=== PATIENT | male | born 1965 | race Caucasian/White ===

== ENCOUNTER → 2020-07-06 15:26 | Outpatient (CLI) | payer OTHER, SELFPAY ==
[2020-07-06 18:23] LABS: Absolute Lymphocyte Count 1.17 X10^3/uL (0.83-4.51); Absolute Neutrophil Count 5.4 X10^3/uL (2.0-7.7); Basophil# 0.06 X10^3/uL; Basophil% 0.8 % (0-1); Eosinophil# 0.34 X10^3/uL; Eosinophils% 4.6 % (0-5); Hematocrit 33.8 % (40-54); Hemoglobin 11.2 g/dL (13.0-16.5); Lymphocyte # 1.17 X10^3/ul (4.0); Lymphocyte % 15.7 % (19-41); Mean Corp Hgb Conc 33.1 g/dL (32-36); Mean Corpuscular Hgb 30.9 pg (27.0-32.0); Mean Corpuscular Volume 93.4 fL (80-94); Mean Platelet Vol. 11.2 fl (6.2-12.0); Monocyte# 0.47 X10^3/uL; Monocyte% 6.3 % (0-10); NRBC Flagged by Analyzer 0 % (0-5); Neutrophil # 5.39 X10^3/uL (2.7-7.7); Neutrophil % 72.3 % (47-70); Platelet Count 341 K/mm3 (150-450); RBC Distribution Width CV 12.4 % (11.6-14.6); RBC Distribution Width SD 42.3 fl (35.1-43.9); Red Blood Count 3.62 M/mm3 (4.6-6.2); White Blood Count 7.5 K/mm3 (4.4-11.0)
[2020-07-06 19:13] LABS: Anion Gap 6 (5-15); BUN 43 mg/dL (7-18); BUN/Creat Ratio 13.5 RATIO (10-20); Calcium,Total 14.4 mg/dL (8.5-10.1); Chloride 108 mmol/L (98-107); Cholesterol 152 mg/dL (200); Creatinine, Serum 3.19 mg/dL (0.70-1.30); EST Glomerular Filtration Rate 22 mL/min (>60); Est Glom Filt Rate - Afr Amer 26 mL/min (>60); Glucose 100 mg/dL (74-106); High Density Lipoprotein 42 mg/dL; PSA,Total - Annual Screen 0.83 ng/mL (0.00-4.00); Potassium 3.9 mmol/L (3.5-5.1); Sodium Level 142 mmol/L (136-145); Thyroid Stim Hormone (TSH) 0.58 uIU/mL (0.358-3.74); Triglycerides 183 mg/dL; Very Low Density Lipoprotein 37 mg/dL (5-40)
== END ==
PROVIDERS: PCP Family Medicine; Referring Provider Family Medicine; Visit Provider Family Medicine
DX: Z00.00 Encounter for general adult medical examination without abnormal findings (principal); R53.83 Other fatigue
CPT/HCPCS: 36415; 80048; 80061; 84153; 84403; 84443; 85025; G0103

== ENCOUNTER 2020-07-07 17:26 | Inpatient (IN) | payer OTHER, SELFPAY ==
[2020-07-07 17:27] VITALS: BP 143/92; PULSE 96; PULSE 98; RESP 18; TEMP 36.7; O2SAT 99; BMI 21.9
--- NOTE | 2020-07-07 17:57 | EKG12_ITS ---
Test Reason : ABN LABS Blood Pressure : / mmHG Vent. Rate : 079 BPM Atrial Rate : 079 BPM P-R Int : 134 ms QRS Dur : 088 ms QT Int : 366 ms P-R-T Axes : 061 039 045 degrees QTc Int : 419 ms Normal sinus rhythm Normal ECG Confirmed by TANIA ENNIS, JOSETTE ([id number]), clinical editor GUILHERME HICKS ([id number]) on 07/09/2020 10:57:06 AM Referred By: TANA Confirmed By:JOSETTE MARIN MD
--- NOTE | 2020-07-07 17:59 | ED.DCSUM_ITS ---
History of Present Illness Chief Complaint: Abn Labs Narrative: Patient is a 54-year-old male who was sent in due to a high calcium. Over the last 6 weeks he complains of fatigue and vague abdominal discomfort increased heartburn and occasional vomiting. His last episode of emesis was a week ago. He had an appointment with a new physician and had outpatient blood work. He was called today and told that his calcium was very high and to go to the emergency department. No fevers. No cough. Patient denies myalgias or arthralgias. No history of cancer. Past Medical History - Allergies and Home Meds Allergies/Adverse Reactions: Allergies No Known Allergies Allergy (Verified 07/07/20 17:30) Primary Care Physician: Jonny Matthews MD [Primary Care Provider] - Past Medical History: - - Schizophrenia Smoking Status: Current every day smoker Review of Systems All systems negative except as indicated General: Reports: - - Fatigue. Denies: Fever Eyes: Denies: Visual changes - bilaterally Cardiovascular: Denies: Chest pain Respiratory: Denies: Dyspnea Gastrointestinal: Reports: Abdominal pain, Nausea, Vomiting, Constipation. Denies: Diarrhea Musculoskeletal: Denies: Myalgias, Arthralgias Skin: Denies: Rash Neurological: Denies: Headache Endocrine: Denies: Polyuria Hematologic: Denies: Easy bruising Allergy: Denies: Uticaria Physical Exam Vital Signs/Narrative: Vital Signs Temp Pulse Resp BP Pulse Ox 07/07/20 17:27 98.1 F 96 18 143/92 H 99 Inital Vital Signs reviewed: Yes General: Well nourished Head: Normocephalic Eyes: EOMI ENT: Moist mucous membranes Neck: Supple Cardiovascular: Regular rate, Regular rhythm Respiratory: No distress, CTA bilaterally Abdomen: Soft, Nontender Skin: Normal color Neurological: Alert Psychological: Normal affect Diagnostic/Tx/Re-eval Laboratory Results 07/07/20 07/07/20 17:40 17:40 WBC 7.3 RBC 3.38 L Hgb 10.4 L Hct 30.9 L MCV 91.4 MCH 30.8 MCHC 33.7 RDW Std Deviation 41.1 RDW Coeff of Madie 12.5 Plt Count 313 MPV 10.4 Immature Gran % (Auto) 0.100 Neut % (Auto) 60.5 Lymph % (Auto) 23.4 [place] % (Auto) 9.3 Eos % (Auto) 5.9 H Baso % (Auto) 0.8 Absolute Neuts (auto) 4.4 Absolute Lymphs (auto) 1.71 Nucleated RBC % 0 Sodium 139 Potassium 3.6 Chloride 106 Carbon Dioxide 29.0 Anion Gap 4 L BUN 36 H Creatinine 3.19 H Estim Creat Clear Calc 26.39 Est GFR (MDRD) Af Amer 26 L Est GFR (MDRD) Non-Af 22 L BUN/Creatinine Ratio 11.3 Glucose 97 Calcium 13.4 H* Total Bilirubin 0.30 AST 13 L ALT 19 Alkaline Phosphatase 98 Total Protein 7.6 Albumin 3.7 Globulin 3.9 Albumin/Globulin Ratio 0.9 - Medical Decision Making EKG shows sinus rhythm at a rate of 79 with a short QT interval. Calcium is 13.4. Labs otherwise notable for creatinine of 3.19. Patient has no known history of renal disease. Yesterday's appointment was his intake appointment with a primary care physician. Given the severity of hypercalcemia I do believe hospitalization for further evaluation and management appropriate. Patient will be discussed with hospitalist. ED Disposition - Plan for ED Patient: Disposition: Acute Care Hospital [facility] Diagnosis: Hypercalcemia Referrals: Jonny Matthews MD [Primary Care Provider] -
[2020-07-07] MEDS: 0.9% Normal Saline 1,000 ML 999 ML IV (18:08)
[2020-07-07 18:28] LABS: Absolute Lymphocyte Count 1.71 X10^3/uL (0.83-4.51); Absolute Neutrophil Count 4.4 X10^3/uL (2.0-7.7); Basophil# 0.06 X10^3/uL; Basophil% 0.8 % (0-1); Eosinophil# 0.43 X10^3/uL; Eosinophils% 5.9 % (0-5); Hematocrit 30.9 % (40-54); Hemoglobin 10.4 g/dL (13.0-16.5); Lymphocyte # 1.71 X10^3/ul (4.0); Lymphocyte % 23.4 % (19-41); Mean Corp Hgb Conc 33.7 g/dL (32-36); Mean Corpuscular Hgb 30.8 pg (27.0-32.0); Mean Corpuscular Volume 91.4 fL (80-94); Mean Platelet Vol. 10.4 fl (6.2-12.0); Monocyte# 0.68 X10^3/uL; Monocyte% 9.3 % (0-10); NRBC Flagged by Analyzer 0 % (0-5); Neutrophil # 4.41 X10^3/uL (2.7-7.7); Neutrophil % 60.5 % (47-70); Platelet Count 313 K/mm3 (150-450); RBC Distribution Width CV 12.5 % (11.6-14.6); RBC Distribution Width SD 41.1 fl (35.1-43.9); Red Blood Count 3.38 M/mm3 (4.6-6.2); White Blood Count 7.3 K/mm3 (4.4-11.0)
--- NOTE | 2020-07-07 18:42 | ED.RN ---
calcium 13.4. aware
[2020-07-07 18:43] LABS: ALB/GLOB Ratio 0.9 RATIO (0.9-2.4); AST(SGOT) 13 U/L (15-37); Alanine Aminotransfer ALT/SGPT 19 U/L (16-61); Albumin, Serum 3.7 g/dL (3.2-5.0); Alkaline Phosphatase 98 U/L (45-117); Anion Gap 4 (5-15); BUN 36 mg/dL (7-18); BUN/Creat Ratio 11.3 RATIO (10-20); Calcium,Total 13.4 mg/dL (8.5-10.1); Chloride 106 mmol/L (98-107); Creatinine, Serum 3.19 mg/dL (0.70-1.30); EST Glomerular Filtration Rate 22 mL/min (>60); Est Glom Filt Rate - Afr Amer 26 mL/min (>60); Estimated Creatinine Clearance 26.39 ml/min; Globulin 3.9 g/dL (2.2-4.2); Glucose 97 mg/dL (74-106); Potassium 3.6 mmol/L (3.5-5.1); Protein, Total 7.6 g/dL (6.4-8.2); Sodium Level 139 mmol/L (136-145)
--- NOTE | 2020-07-07 20:00 | HP.PCM_ITS ---
Problem List (1) Hypercalcemia Status: Acute History of Present Illness Date of Admission: 07/07/20 Chief Complaint: hypercalcemia The patient is a 54 year old M with a significant history of tobacco abuse; and schizophrenia who presented because of outpatient lab of hypercalcemia. Reportedly patient went to see a new PCP to establish care. This new PCPs visit was a day before presentation. Lab work was done. The lab work showed a calcium of 14.4 so patient was sent to emergency department for further evaluation. Patient reports a 6-week history of fatigue; weakness; and anorexia. 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 Because of his symptoms he has not been able to go to work. Further he has lost about 10 pounds of weight in the last one month. At emergency department his calcium level was found to be 13.4. His creatinine was 3.19. His BUN was 36. Past Medical History Medical History: Medical History (Last Reviewed 07/07/20 @ 20:[address] Hansel Coto MD) GERD (gastroesophageal reflux disease) K21.9 Hypercalcemia E83.52 Light tobacco smoker F17.200 Paranoid schizophrenia F20.0 Restless leg G25.81 Allergies No Known Allergies Allergy (Verified 07/07/20 17:30) Home Medications: Ambulatory Orders Medication Instructions Recorded Benztropine [Cogentin] 4 mg PO BID 07/07/20 Haloperidol [Haldol] 5 mg PO BID 07/07/20 l-Mefol/A-Cyst/Meb12/Algal Oil 1 ea PO DAILY 07/07/20 [Cerefolin Nac Caplet] Surgical History: Surgical History (Last Updated 07/07/20 @ 13:55 by Maria M Solano) History of appendectomy Z90.49 Smoking Status: Current every day smoker Tobacco Use: Cigarettes - *Family History Maternal Family History: Family History (Last Reviewed 07/07/20 @ 20:[address] Hansel Coto MD) Aunt Cancer Uncle Cancer Mother Pacemaker Review of Systems Constitutional: Reports: Anorexia, Weight Change. Denies: Chills, Fever HEENT: Denies: Head Aches, Sinus Congestion, Sinus Drainage Cardiovascular: Denies: Chest Pain, Palpitations Respiratory: Denies: Cough, Shortness of breath at rest, Sputum production Gastrointestinal: Reports: Abdominal Pain, Dyspepsia. Denies: Nausea, Vomiting Genitourinary: Denies: Dysuria Musculoskeletal: Denies: Joint Pain, Joint Tenderness Skin: Denies: Rash, Wounds Neurological: Denies: Numbness, Tingling, Focal weakness Psychiatric: Denies: Anxiety, Depression, Homicidal Ideations, Suicidal Ideations Hematologic/ Lymphatic: Denies: Easy Bruising, Easy Bleeding VTE Information - Inpt Only VTE Present on Admission: No VTE Mechan Device Prophylaxis: None VTE Pharm Prophylaxis ordered?: Yes Patient Problems: Active and Suspected Problems (Last Reviewed 07/07/20 @ 20:[address] Hansel Coto MD) Hypercalcemia (Acute) - Physical Exam Vitals/I&O's: Vital Signs Temp Pulse Resp BP Pulse Ox 98.1 F 96 18 143/92 H 99 07/07/20 17:27 07/07/20 17:27 07/07/20 17:27 07/07/20 17:27 07/07/20 17:27 Oxygen Delivery Method Room Air Weight: 71.3 kg Body Mass Index (BMI) 21.9 General: Alert, Oriented x3, Cooperative HEENT: Atraumatic, PERRLA, EOMI, Normocephalic Neck: Supple, No JVD, Negative Carotid Bruits Lungs: Clear to auscultation, Normal air movement Cardiovascular: Regular rate, No murmurs Abdomen: Bowel Sounds Present, Soft, Non Tender Extremities: No edema, Capillary Refill Less than 3 Seconds Skin: No rashes, No breakdown Musculoskeletal: No Tenderness to Palpation of Joints or Extremities Neurological: Cranial nerves II-XII grossly intact Psych/Mental Status: Normal Affect, Appropriate Laboratory Results 07/07/20 17:40: WBC 7.3, RBC 3.38 L, Hgb 10.4 L, Hct 30.9 L, MCV 91.4, MCH 30.8, MCHC 33.7, RDW Std Deviation 41.1, RDW Coeff of Madie 12.5, Plt Count 313, MPV 1 0.4, Immature Gran % (Auto) 0.100, Neut % (Auto) 60.5, Lymph % (Auto) 23.4, [place] % (Auto) 9.3, Eos % (Auto) 5.9 H, Baso % (Auto) 0.8, Absolute Neuts (auto) 4.4, Absolute Lymphs (auto) 1.71, Nucleated RBC % 0 07/07/20 17:40: Sodium 139, Potassium 3.6, Chloride 106, Carbon Dioxide 29.0, Anion Gap 4 L, BUN 36 H, Creatinine 3.19 H, Estim Creat Clear Calc 26.39, Est GFR (MDRD) Af Amer 26 L, Est GFR (MDRD) Non-Af 22 L, BUN/Creatinine Ratio 11.3, Glucose 97, Calcium 13.4 H*, Total Bilirubin 0.30, AST 13 L, ALT 19, Alkaline Phosphatase 98, Total Protein 7.6, Albumin 3.7, Globulin 3.9, Albumin/Globulin Ratio 0.9 07/07/20 18:10: Ionized Calcium Pending Assessment/Plan All Active Problems (Last Reviewed 07/07/20 @ 20:[address] Hansel Coto MD) Hypercalcemia (Acute) The patient is a 54 year old M with a significant history of tobacco abuse; and schizophrenia who presented because of outpatient lab of hypercalcemia and acute renal failure. Hypercalcemia Patient showed a QT interval. Will admit to progressive care unit on telemetry. With anemia, acute renal failure and hypercalcemia multiple myeloma is high on the differential. We will get SPEP and UPEP. Received normal saline bolus at emergency department. Will start patient on normal saline 100 mL's per hour. Will check complete urinalysis. If hypercalcemia does not improve consider nephrology consult Trend BMP YADI Creatinine presentation was 3.19. With his age this likely YADI. BUN is 36. BUN over creatinine is 11.3. Received normal saline bolus as above. Started on maintenance infusion normal saline. Trend BMP. Get ultrasound of kidney and bladder. Schizophrenia Haldol and Cogentin continued DVT prophylaxis Subcutaneous Heparin ordered. Inpatient E&M: 27019 Init Hosp L3
[2020-07-07 20:06] VITALS: BP 151/97; PULSE 82; RESP 17; TEMP 37.1
[2020-07-07 20:08] VITALS: BP 151/97; PULSE 83; RESP 17; TEMP 37.1
[2020-07-07 20:17] VITALS: BMI 21.7; BMI 21.8
--- NOTE | 2020-07-07 20:47 | US_ITS ---
STUDY: RENAL ULTRASOUND - COMPLETE REASON FOR EXAM: Male, 54 years old. Acute kidney injury. TECHNIQUE: Ultrasound evaluation of the kidneys was performed with real-time and static russell-scale imaging. COMPARISON: None. FINDINGS: RIGHT KIDNEY: Normal location of the right kidney, which is normal in size. The right kidney measures 9.9 cm. Is increased renal cortical echogenicity. The renal cortex measures 1.6 cm. There is no right renal mass or cyst. There are no right renal calculi. There is no right hydronephrosis. DISTAL RIGHT URETER: There is non-visualization of the distal right ureter. There is no demonstrated right ureterovesical junction calculus. There is no demonstrated right ureteral jet. LEFT KIDNEY: Normal location of the left kidney, which is normal in size. The left kidney measures 10.9 cm. There is increased renal cortical echogenicity. The renal cortex measures 2.0 cm. There is no left renal mass or cyst. There are no left renal calculi. There is no left hydronephrosis. DISTAL LEFT URETER: There is non-visualization of the distal left ureter. There is no demonstrated left ureterovesical junction calculus. There is no demonstrated left ureteral jet. BLADDER: The distended urinary bladder has a volume of 583 ml. There is a normal wall thickness of the distended urinary bladder. There is no demonstrated mass within the urinary bladder. There is debris in the dependent urinary bladder without obvious calculi. US/Kidney and Bladder IMPRESSION: 1. Increased bilateral renal cortical echogenicity consistent with medical renal disease. 2. Minimal debris within the urinary bladder without distinct stone or mass. Electronically Signed: Bereket Berry DO at 21:42 EDT Tel [phone], Service support ,
[2020-07-07 20:58] VITALS: PULSE 97
[2020-07-07 21:00] VITALS: BP 157/100; PULSE 85; RESP 16; TEMP 37.6; O2SAT 100
[2020-07-07 22:35] VITALS: BP 146/92; PULSE 77; RESP 16; TEMP 37.1; O2SAT 97
[2020-07-07] MEDS: 0.9% Normal Saline 1,000 ML 100 ML IV (22:37)
[2020-07-07] MEDS: Heparin Injection (Vial) 5,000 UNIT/ML VIAL 5000 UNIT SC (22:37)
[2020-07-07] MEDS: 0.9% Saline Lock 10 ML Syringe IV (22:37)
[2020-07-08] VITALS (10 sets, daily range): BP systolic 142–158; BP diastolic 85–92; PULSE 77–90; RESP 16–18; TEMP 36.7–37.1; O2SAT 96–100
[2020-07-08 00:25] LABS: Mucous, Urine 0 SEEN /hpf (<or=2+); Red Blood Cells-Urine 0 SEEN /hpf (0-5); Squamous Epithelial Cells - UA 0 SEEN /hpf (0-5); White Blood Cells 0 SEEN /hpf (0-5)
[2020-07-08 00:27] LABS: Color, Urine Yellow (Yellow); Glucose, Dipstick Normal (Normal); Ketone-Dipstick Negative (Negative); Leukocyte Esterase-Dipstick Negative /ul (Negative); Nitrite-Dipstick Negative (Negative); Occult Blood-Urine Negative /ul (Negative); Protein-Dipstick 15 mg/dl (Negative); Urine Bilirubin Dipstick Negative (Negative); Urine Clarity Clear (Clear); Urine Urobilinogen Normal (Normal)
[2020-07-08 00:44] LABS: Bacteria RARE /hpf (None Seen)
[2020-07-08] MEDS: Heparin Injection (Vial) 5,000 UNIT/ML VIAL 5000 UNIT SC ×3 (05:16→21:14)
[2020-07-08 06:51] LABS: Absolute Lymphocyte Count 1.38 X10^3/uL (0.83-4.51); Absolute Neutrophil Count 4.2 X10^3/uL (2.0-7.7); Basophil# 0.05 X10^3/uL; Basophil% 0.8 % (0-1); Eosinophil# 0.38 X10^3/uL; Eosinophils% 5.8 % (0-5); Hematocrit 28.2 % (40-54); Hemoglobin 9.3 g/dL (13.0-16.5); Lymphocyte # 1.38 X10^3/ul (4.0); Lymphocyte % 21.1 % (19-41); Mean Corpuscular Hgb 30.4 pg (27.0-32.0); Mean Corpuscular Volume 92.2 fL (80-94); Mean Platelet Vol. 10.4 fl (6.2-12.0); Monocyte# 0.53 X10^3/uL; Monocyte% 8.1 % (0-10); NRBC Flagged by Analyzer 0 % (0-5); Neutrophil # 4.17 X10^3/uL (2.7-7.7); Neutrophil % 63.9 % (47-70); Platelet Count 305 K/mm3 (150-450); RBC Distribution Width CV 12.7 % (11.6-14.6); RBC Distribution Width SD 42.5 fl (35.1-43.9); Red Blood Count 3.06 M/mm3 (4.6-6.2); White Blood Count 6.5 K/mm3 (4.4-11.0)
[2020-07-08 07:26] LABS: Anion Gap 3 (5-15); BUN 31 mg/dL (7-18); BUN/Creat Ratio 10.4 RATIO (10-20); Calcium,Total 11.6 mg/dL (8.5-10.1); Chloride 112 mmol/L (98-107); Creatinine, Serum 2.98 mg/dL (0.70-1.30); EST Glomerular Filtration Rate 23 mL/min (>60); Est Glom Filt Rate - Afr Amer 28 mL/min (>60); Estimated Creatinine Clearance 28.03 ml/min; Glucose 85 mg/dL (74-106); Potassium 3.8 mmol/L (3.5-5.1); Sodium Level 142 mmol/L (136-145)
[2020-07-08 07:56] LABS: LDH 133 U/L (87-241)
--- NOTE | 2020-07-08 08:28 | CT_ITS ---
STUDY: CT ABDOMEN AND PELVIS WITHOUT CONTRAST REASON FOR EXAM: Male, 54 years old. HYPERCALCEMIA, FATIGUE, WEAKNESS, ANOREXIA RADIATION DOSAGE (If Supplied By Facility): CTDIvol = ( 9.06 ) mGy, DLP = ( 287.93 ) mGycm TECHNIQUE: Transaxial images were obtained from the dome of the diaphragm to the symphysis pubis without oral contrast, and without intravenous contrast. Sagittal and coronal images were reconstructed. Individualized dose optimization techniques were used for this CT. COMPARISON: None. FINDINGS: Minimal increased markings at the lung bases slightly more prominent on the right side. The visualized portions of the heart are within normal limits. Normal liver. Normal gallbladder and extrahepatic biliary system. Normal spleen. Normal pancreas. There is a small, circumscribed, smooth, low attenuation right adrenal mass, consistent with an adrenal adenoma. It measures 9.8 mm. Normal left adrenal gland. Normal right kidney. Normal left kidney. Incidental finding of a left retroaortic renal vein. There is a small hiatal hernia. Normal small intestine. Normal colon. The appendix is visualized and appears normal. Normal abdominal aorta. Normal inferior vena cava. Normal retroperitoneum. Markedly distended urinary bladder. There is a small umbilical hernia containing fat. There are mild degenerative changes of the visualized lumbar spine. CT/Abdomen/Pelvis without Cont IMPRESSION: Markedly distended urinary bladder. Electronically Signed: Kris Scott, at 10:22 EDT , Service support ,
--- NOTE | 2020-07-08 08:28 | CT_ITS ---
STUDY: CT CHEST WITHOUT CONTRAST REASON FOR EXAM: Male, 54 years old. HYPERCALCEMIA, FATIGUE, WEAKNESS, ANOREXIA RADIATION DOSAGE (If Supplied By Facility): CTDIvol = ( 9.08 ) mGy, DLP = ( 441.62 ) mGycm TECHNIQUE: Transaxial imaging was performed without the administration of intravenous contrast material. Individualized dose optimization techniques were used for this CT. COMPARISON: None. FINDINGS: The lungs are normal. There is no demonstrated pleural abnormality. Normal heart and pericardium. Multiple enlarged mediastinal and bilateral hilar lymphadenopathy more prominent on the right side. Normal hilar regions. Normal unenhanced pulmonary arteries. Normal aorta arch and descending thoracic aorta. There are mild degenerative changes of the thoracic spine. Small hiatal hernia. CT/Chest without Contrast IMPRESSION: Enlargement of the mediastinal and bilateral hilar lymphadenopathy. Sarcoidosis should be ruled out. Electronically Signed: Kris Scott, at 10:24 EDT , Service support ,
--- NOTE | 2020-07-08 08:29 | PN_ITS ---
Patient Problems: Active and Suspected Problems (Last Reviewed 07/07/20 @ 20:[address] Hansel Coto MD) Hypercalcemia (Acute) Subjective: Feeling much better today after the IV fluids. Denies any bone pain. Vitals/I&O's: Vital Signs Temp Pulse Resp BP Pulse Ox 98.4 F 87 16 142/85 H 99 07/08/20 04:35 07/08/20 07:37 07/08/20 04:35 07/08/20 04:35 07/08/20 04:35 Oxygen Delivery Method Room Air Weight: 156 lb Body Mass Index (BMI) 21.7 Intake and Output for Last 24 Hours 07/06/20 07/07/20 07/08/20 23:59 23:59 23:59 Intake Total 1240 / 1240 120 / 120 Balance 1240 / 1240 120 / 120 General: Alert, Oriented x3, Cooperative, No apparent distress HEENT: Atraumatic, PERRLA, EOMI, Normocephalic Oral: Moist Mucosa Neck: Supple, No JVD Lungs: Clear to auscultation, Normal air movement, No rhonchi, No wheeze, No rales Cardiovascular: Regular rate, Regular Rhythm, Normal S1, Normal S2, No murmurs Abdomen: Soft, Non Tender, Non-Distended, No Hepato-splenomegaly Extremities: No edema, Capillary Refill Less than 3 Seconds Skin: No rashes, No breakdown Neurological: Neuro grossly intact, Sensory exam intact to light touch and pain Psych/Mental Status: Normal Affect, Appropriate Laboratory Results 07/07/20 17:40: WBC 7.3, RBC 3.38 L, Hgb 10.4 L, Hct 30.9 L, MCV 91.4, MCH 30.8, MCHC 33.7, RDW Std Deviation 41.1, RDW Coeff of Madie 12.5, Plt Count 313, MPV 10.4, Immature Gran % (Auto) 0.100, Neut % (Auto) 60.5, Lymph % (Auto) 23.4, [place] % (Auto) 9.3, Eos % (Auto) 5.9 H, Baso % (Auto) 0.8, Absolute Neuts (auto) 4.4, Absolute Lymphs (auto) 1.71, Nucleated RBC % 0 07/07/20 17:40: Sodium 139, Potassium 3.6, Chloride 106, Carbon Dioxide 29.0, A nion Gap 4 L, BUN 36 H, Creatinine 3.19 H, Estim Creat Clear Calc 26.39, Est GFR (MDRD) Af Amer 26 L, Est GFR (MDRD) Non-Af 22 L, BUN/Creatinine Ratio 11.3, Glucose 97, Calcium 13.4 H*, Total Bilirubin 0.30, AST 13 L, ALT 19, Alkaline Phosphatase 98, Total Protein 7.6, Albumin 3.7, Globulin 3.9, Albumin/Globulin Ratio 0.9 07/07/20 18:10: Ionized Calcium Pending 07/07/20 21:15: Urine Color Yellow, Urine Clarity Clear, Urine pH 7.0, Ur Specific [place] 1.010, Urine Protein 15 H, Urine Glucose (UA) Normal, Urine Ketones Negative, Urine Occult Blood Negative, Urine Nitrite Negative, Urine Bilirubin Negative, Urine Urobilinogen Normal, Ur Leukocyte Esterase Negative, Urine RBC 0 SEEN, Urine WBC 0 SEEN, Ur Squamous Epith Cells 0 SEEN, Urine Bacteria RARE, Urine Mucus 0 SEEN 07/08/20 05:55: Total Protein (PEP) Pending, Urine Total Protein Pending, Urine Albumin Pending, U Rppqb-7-Ollyioay Pending, U Gklqa-9-Fwfyiran Pending, U Beta Globulin Pending, U Gamma Globulin Pending, U PEP M-Vic Pending, IgG Pending, IgA Pending, IgM Pending, Albumin (FOUZIA) Pending, Albumin/Globulin (FOUZIA) Pending, Amljn-0-Ywjtvwkeb FOUZIA Pending, Xtius-7-Rhzzjarsb FOUZIA Pending, Beta-Globulins (FOUZIA) Pending, Gamma Globulins (FOUZIA) Pending, FOUZIA M-Vic Pending 07/08/20 05:55: WBC 6.5, RBC 3.06 L, Hgb 9.3 L, Hct 28.2 L, MCV 92.2, MCH 30.4, MCHC 33.0, RDW Std Deviation 42.5, RDW Coeff of Madie 12.7, Plt Count 305, MPV 10.4, Immature Gran % (Auto) 0.300, Neut % (Auto) 63.9, Lymph % (Auto) 21.1, [place] % (Auto) 8.1, Eos % (Auto) 5.8 H, Baso % (Auto) 0.8, Absolute Neuts (auto) 4.2, Absolute Lymphs (auto) 1.38, Nucleated RBC % 0 07/08/20 05:55: Sodium 142, Potassium 3.8, Chloride 112 H, Carbon Dioxide 27.0, Anion Gap 3 L, BUN 31 H, Creatinine 2.98 H, Estim Creat Clear Calc 28.03, Est GFR (MDRD) Af Amer 28 L, Est GFR (MDRD) Non-Af 23 L, BUN/Creatinine Ratio 10.4, Glucose 85, Calcium 11.6 H 07/08/20 05:55: Lactate Dehydrogenase 133 07/08/20 05:55: PTH Intact Pending 07/08/20 05:55: Vit D 1,25-Dihydroxy Pending Current Medications Acetaminophen (Tylenol) 650 mg PO Q6H PRN PRN PRN Reason: Pain Score 1-10/Temp > 100.7 F Benztropine Mesylate (Cogentin) 4 mg PO BID [facility] Last Admin: 07/07/20 22:30 Dose: Not Given Documented by: Haloperidol (Haldol) 5 mg PO BID [facility] Last Admin: 07/07/20 22:30 Dose: Not Given Documented by: Heparin Sodium (Porcine) (Heparin Na) 5,000 unit SC Q8 [facility] Last Admin: 07/08/20 05:16 Dose: 5,000 unit Documented by: Sodium Chloride () 1,000 mls @ 150 mls/hr IV .[id number] [facility] Last Admin: 07/07/20 22:37 Dose: 100 mls/hr Documented by: Sodium Chloride () 250 mls @ 15 mls/hr IV .[id number] PRN PRN Reason: Saline Flush Sodium Chloride () 250 mls @ 15 mls/hr IV .[id number] PRN PRN Reason: Additional IVPB Infusion Nutritional Formula (Lactose Free) (Ensure Enlive) 120 ml PO 4X/DAY [facility] Last Admin: 07/07/20 22:31 Dose: Not Given Documented by: Sodium Chloride () 10 - 40 ml IV UD PRN PRN Reason: SALINE FLUSH Last Admin: 07/07/20 22:37 Dose: 10 ml Documented by: STROKE Vital Signs/Narrative: Vital Signs Temp Pulse Resp BP Pulse Ox 07/08/20 07:37 87 07/08/20 04:35 98.4 F 83 16 142/85 H 99 Medical Necessity - Tobacco Use Smoking Status: Current every day smoker Tobacco Use: Cigarettes Assessment/Plan All Active Problems (Last Reviewed 07/07/20 @ 20:[address] Hansel Coto MD) Hypercalcemia (Acute) 1. Hypercalcemia/YADI -Significant concern for multiple myeloma, that testing is pending -Increased IV fluids from 100 to 150. Calcium decreased from 13.4 to 11.6 -We will obtain a CT scan of his chest abdomen and pelvis without contrast given his creatinine, which is 2.98 down from 3.19 on admission -We will add parathyroid hormone as well as vitamin D and a PSA screen -Since he has had such good response with IV fluids, will monitor his calcium and will hold off on any zoledronic acid 2. Paranoid schizophrenia -Stable -Continue with his home medications DVT: Heparin Inpatient E&M: 23795 Subs Hosp L2
[2020-07-08 08:34] LABS: PTHIN 14.9 pg/mL (18.4-80.1)
[2020-07-08] MEDS: 0.9% Normal Saline 1,000 ML 100 ML IV (09:10)
[2020-07-08] MEDS: 0.9% Saline Lock 10 ML Syringe IV (09:14)
[2020-07-08 09:16] LABS: PSA,Total- Diagnostic 0.68 ng/mL (0.0-4.0)
[2020-07-08] MEDS: Haloperidol 5 MG Tablet PO ×2 (09:18→21:14)
[2020-07-08] MEDS: Benztropine 2 MG Tablet 4 MG PO ×2 (09:22→21:14)
--- NOTE | 2020-07-08 13:46 | CASEMGMT ---
GABINO STAPLETON assessment: Face to Face with patient for initial transition planning/care coordination assessment. GABINO STAPLETON introduced self and role at [facility], pt voices understanding and consents to assessment at this time. Pt is lying in bed in no distress at this time. Pt is A/Ox4 at this time and answers all questions appropriately at this time. Care providers, pharmacy, and demographics verified at this time. Presentation: Pt c/o dizziness, fatigue, PCP called with elev calcium Admitting dx: Hypercalcemia PCP: Cassie Specialists: Pt states no current specialists. Preferred Pharmacy: [facility] Insurance: [employer] aid Prescription Benefit: Pt states pays for own scripts and states no concerns at this time. Living Will/HPOA: Pt states does not have LW/HPOA and declines AD info at this time. LNOK: Scott Thomas, brother; Stephen Fritz, family other Living Arrangements: Pt states lives with his brother in 1 story apartment and states no concerns at home at this time. Pt states is independent with ADL's. Transportation: Pt states no transportation concerns at this time. DME/HHC: Pt states no current DME or need for any at this time. Pt states no hx of HHC or SNF in the past. Pt states no concerns with going home at time of discharge. 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 Pt states smokes cigarettes occasionally and does not drink ETOH. Pt states no further concerns/needs at this time. CM to follow for any further discharge planning/needs. Advised pt to ask for CM if any further questions/concerns/needs arise, voices understanding. Pt Goal: Home Plan[place] GABINO STAPLETON
[2020-07-08] MEDS: 0.9% Normal Saline 1,000 ML 150 ML IV ×2 (15:56→22:19)
[2020-07-09 02:59] VITALS: PULSE 76
[2020-07-09 03:00] VITALS: BP 132/77; PULSE 82; RESP 16; TEMP 36.9; O2SAT 95
[2020-07-09] MEDS: 0.9% Normal Saline 1,000 ML 150 ML IV (04:27)
[2020-07-09] MEDS: Heparin Injection (Vial) 5,000 UNIT/ML VIAL 5000 UNIT SC (05:08)
[2020-07-09 06:36] LABS: Absolute Lymphocyte Count 1.25 X10^3/uL (0.83-4.51); Absolute Neutrophil Count 4.4 X10^3/uL (2.0-7.7); Basophil# 0.06 X10^3/uL; Basophil% 0.9 % (0-1); Eosinophil# 0.37 X10^3/uL; Eosinophils% 5.5 % (0-5); Hematocrit 28.5 % (40-54); Hemoglobin 9.2 g/dL (13.0-16.5); Lymphocyte # 1.25 X10^3/ul (4.0); Lymphocyte % 18.7 % (19-41); Mean Corp Hgb Conc 32.3 g/dL (32-36); Mean Corpuscular Hgb 30.5 pg (27.0-32.0); Mean Corpuscular Volume 94.4 fL (80-94); Mean Platelet Vol. 10.4 fl (6.2-12.0); Monocyte# 0.62 X10^3/uL; Monocyte% 9.3 % (0-10); NRBC Flagged by Analyzer 0 % (0-5); Neutrophil # 4.36 X10^3/uL (2.7-7.7); Neutrophil % 65.2 % (47-70); Platelet Count 296 K/mm3 (150-450); RBC Distribution Width CV 12.9 % (11.6-14.6); RBC Distribution Width SD 43.9 fl (35.1-43.9); Red Blood Count 3.02 M/mm3 (4.6-6.2); White Blood Count 6.7 K/mm3 (4.4-11.0)
[2020-07-09 06:50] VITALS: PULSE 71
[2020-07-09 06:59] LABS: Anion Gap 5 (5-15); BUN 27 mg/dL (7-18); BUN/Creat Ratio 10.7 RATIO (10-20); Calcium,Total 10.9 mg/dL (8.5-10.1); Chloride 115 mmol/L (98-107); Creatinine, Serum 2.53 mg/dL (0.70-1.30); EST Glomerular Filtration Rate 28 mL/min (>60); Est Glom Filt Rate - Afr Amer 34 mL/min (>60); Estimated Creatinine Clearance 33.02 ml/min; Glucose 84 mg/dL (74-106); Potassium 3.6 mmol/L (3.5-5.1); Sodium Level 144 mmol/L (136-145)
[2020-07-09 07:30] VITALS: O2SAT 95
[2020-07-09] MEDS: Benztropine 2 MG Tablet 4 MG PO (08:58)
[2020-07-09] MEDS: Haloperidol 5 MG Tablet PO (08:59)
[2020-07-09 09:00] VITALS: BP 139/87; PULSE 80; RESP 16; TEMP 36.8; O2SAT 98
--- NOTE | 2020-07-09 10:18 | DCINST_ITS ---
- Discharge Diagnoses Current Active Problems: Current Active and Chronic Problems (Last Reviewed 07/07/20 @ 20:[address] Hansel Coto MD) Hypercalcemia (Acute) You will use the following diet at home:: Regular Your food should be the consistency of: Regular Your liquids should be the consistency of: Regular/Thin Discharge Activity: Return to Normal Activity Call your doctor if you observe: Fever of 101 or Higher, Shortness of breath, Dizziness, Fainting spells, Swelling in the ankles, Chest pain, Increased palpitations (irregular heartbeat) Additional Instructions: Have a repeat BMP nexst week by your PCP to monitor your hypercalcemia Allergies/Adverse Reactions: Allergies No Known Allergies Allergy (Verified 07/07/20 17:30) Medications to take at Discharge Benztropine [Cogentin] 4 mg PO BID 07/07/20 Haloperidol [Haldol] 5 mg PO BID 07/07/20 l-Mefol/A-Cyst/Meb12/Algal Oil [Cerefolin Nac Caplet] 1 ea PO DAILY 07/07/20 Primary Care Physician: Jonny Matthews MD [Primary Care Provider] - Please follow up with your Primary Care Physician in: 3-5 days Test Results: Test results from this visit will be discussed in further detail at your follow- up appointment, if applicable. Please Follow Up With: Nader Ludwig DO When: As scheduled
--- NOTE | 2020-07-09 11:22 | PHA.DC.MR ---
Pharmacy Service has performed discharge medication reconciliation for this patient. The patient's discharge medication list was reviewed for discrepancies and discrepancies were resolved. Home Medications Benztropine [Cogentin] 4 mg PO BID 07/07/20 Haloperidol [Haldol] 5 mg PO BID 07/07/20 l-Mefol/A-Cyst/Meb12/Algal Oil [Cerefolin Nac Caplet] 1 ea PO DAILY 07/07/20
--- NOTE | 2020-07-09 13:17 | PCM.DC.SUM ---
Discharge Date and Diagnosis Date of Admission: 07/07/20 Date of Discharge: 07/09/20 Hospital Course and Treatment Imaging Results: Clinical Impression(s) from Imaging Studies Renal Ultrasound 07/07/20 20:47 IMPRESSION: 1. Increased bilateral renal cortical echogenicity consistent with medical renal disease. 2. Minimal debris within the urinary bladder without distinct stone or mass. Electronically Signed: Bereket HugoonDO at 21:42 EDT Tel [phone], Service support , Abdomen/Pelvis CT 07/08/20 08:28 IMPRESSION: Markedly distended urinary bladder. Electronically Signed: Kris Scott, at 10:22 EDT , Service support , Chest CT 07/08/20 08:28 IMPRESSION: Enlargement of the mediastinal and bilateral hilar lymphadenopathy. Sarcoidosis should be ruled out. Electronically Signed: Kris Scott, at 10:24 EDT , Service support , Consults: None Operations: None Procedures: None Summary of Care Provided: Per HPI: The patient is a 54 year old M with a significant history of tobacco abuse; and schizophrenia who presented because of outpatient lab of hypercalcemia. Reportedly patient went to see a new PCP to establish care. This new PCPs visit was a day before presentation. Lab work was done. The lab work showed a calcium of 14.4 so patient was sent to emergency department for further evaluation. Patient reports a 6-week history of fatigue; weakness; and anorexia. 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 Because of his symptoms he has not been able to go to work. Further he has lost about 10 pounds of weight in the last one month. At emergency department his calcium level was found to be 13.4. His creatinine was 3.19. His BUN was 36. Hospital Course: 1. Hypercalcemia/GCM-46-sycb-old male presented to the hospital after he had routine lab work done which showed hypercalcemia. He was sent to the emergency department at that time for evaluation. He states he has had 6 weeks history of fatigue and weakness as well as loss of appetite. Initially on the outpatient side his calcium was 14.4, on the hospital side he was 13.4 and he improved to 10.9 on the day of discharge. He was started on IV fluids and his renal function went from 3.19 admission to 2.53 on discharge. He is feeling much better today and would like to go home. A PTH was obtained which was low at 14.9, he had a total PSA done of 0.68, he is anemic to around [address] scan that showed bilateral hilar lymphadenopathy. I discussed with him the possibilities between multiple myeloma, sarcoidosis, lymphoma and that he will need to follow-up with pulmonology as an outpatient to get a bronchoscopy with biopsy of these lesions to be able to identify the cause of his hypercalcemia. He did express understanding and already has an appoint with Dr. Ludwig. I discussed the discharge plan he expressed understanding the risk and benefits of going home today. 2. Paranoid schizophrenia is a chronic medical problem which complicates his care. His home medications were continued where appropriate - Physical Exam Vitals/I&O's: Vital Signs Temp Pulse Resp BP Pulse Ox 98.3 F 80 16 139/87 H 98 07/09/20 09:00 07/09/20 09:00 07/09/20 09:00 07/09/20 09:00 07/09/20 09:00 Oxygen Delivery Method Room Air Weight: 155 lb 15.985 oz Body Mass Index (BMI) 21.7 Intake and Output for Last 24 Hours 07/07/20 07/08/20 07/09/20 23:59 23:59 23:59 Intake Total 1240 / 1240 4417.50 / 4417.50 1670 / 1670 Balance 1240 / 1240 4417.50 / 4417.50 1670 / 1670 General: Alert, Oriented x3, Cooperative, No apparent distress HEENT: Atraumatic, PERRLA, EOMI, Normocephalic Oral: Moist Mucosa Neck: Supple, No JVD Lungs: Clear to auscultation, Normal air movement, No rhonchi, No wheeze, No rales Cardiovascular: Regular rate, Regular Rhythm, Normal S1, Normal S2, No murmurs Abdomen: Soft, Non Tender, Non-Distended, No Hepato-splenomegaly Extremities: No edema, Capillary Refill Less than 3 Seconds Skin: No rashes, No breakdown Neurological: Neuro grossly intact, Sensory exam intact to light touch and pain Psych/Mental Status: Normal Affect, Appropriate Laboratory Results 07/09/20 05:55: WBC 6.7, RBC 3.02 L, Hgb 9.2 L, Hct 28.5 L, MCV 94.4 H, MCH 30.5, MCHC 32.3, RDW Std Deviation 43.9, RDW Coeff of Madie 12.9, Plt Count 296, MPV 10.4, Immature Gran % (Auto) 0.400, Neut % (Auto) 65.2, Lymph % (Auto) 18.7 L, Overton % (Auto) 9.3, Eos % (Auto) 5.5 H, Baso % (Auto) 0.9, Absolute Neuts (auto) 4.4, Absolute Lymphs (auto) 1.25, Nucleated RBC % 0 07/09/20 05:55: Sodium 144, Potassium 3.6, Chloride 115 H, Carbon Dioxide 24.0, Anion Gap 5, BUN 27 H, Creatinine 2.53 H, Estim Creat Clear Calc 33.02, Est GFR (MDRD) Af Amer 34 L, Est GFR (MDRD) Non-Af 28 L, BUN/Creatinine Ratio 10.7, Glucose 84, Calcium 10.9 H Discharge Activity: Return to Normal Activity Call your doctor if you observe: Fever of 101 or Higher, Shortness of breath, Dizziness, Fainting spells, Swelling in the ankles, Chest pain, Increased palpitations (irregular heartbeat) Home Medications: Medications to take at Discharge Benztropine [Cogentin] 4 mg PO BID 07/07/20 Haloperidol [Haldol] 5 mg PO BID 07/07/20 l-Mefol/A-Cyst/Meb12/Algal Oil [Cerefolin Nac Caplet] 1 ea PO DAILY 07/07/20 Primary Care Physician: Jonny Matthews MD [Primary Care Provider] - Please follow up with your Primary Care Physician in: 3-5 days Please Follow Up With: Jonny Matthews MD When: As scheduled Please Follow Up With: Nader Ludwig DO When: As scheduled Disposition: Home Minutes spent on discharge:: 35 Patient Condition:: Stable Medical Necessity - Tobacco Use Smoking Status: Current every day smoker Tobacco Use: Cigarettes Meaningful Use Info Meaningful Use Diagnoses (Choose all that apply): None applicable Inpatient E&M: 38390 Disch Hosp
[2020-07-10 14:08] LABS: Albumin 3.3 g/dL (2.9-4.4); Alpha-1-Globulins 0.2 g/dL (0.0-0.4); Alpha-2-Globulins 0.8 g/dL (0.4-1.0); Immunoglobulin A 147 mg/dL (90-386); Immunoglobulin G 1027 mg/dL (603-1613); Immunoglobulin M 84 mg/dL (20-172); PROELU- Albumin, Urine 26.2 % (.); PROELU- Alpha-1-Globulin,Ur 7.5 % (.); PROELU- Alpha-2-Globulin,Ur 18.1 % (.); PROELU- Beta Globulin, Ur 33.6 % (.); PROELU- Gamma Globulin, Ur 14.6 % (.); Total Protein, Ur 6.5 mg/dL (Not Estab.)
[2020-07-10 15:23] LABS: Vitamin D 1,25-Dihydroxy 53.7 pg/mL (19.9-79.3)
== END 2020-07-09 11:30 | disposition home or self-care (01) | DRG 683 ==
LOC: ED 20:00 → PCU 20:21
PROVIDERS: Admitting Provider Hospitalist; Emergency Provider Emergency Medicine; PCP Family Medicine; Visit Provider Family Medicine
DX: N17.9 Acute kidney failure, unspecified (principal); F20.0 Paranoid schizophrenia; E83.52 Hypercalcemia; K21.9 Gastro-esophageal reflux disease without esophagitis; Z79.899 Other long term (current) drug therapy; F17.210 Nicotine dependence, cigarettes, uncomplicated
CPT/HCPCS: 36415; 71250; 74176; 76770; 80048; 80053; 81001; 82330; 82652; 82784; 83615; 83970; 84153; 84165; 84166; 85025; 86334; 93005; 99284; 99406; J7030; A4216

== ENCOUNTER → 2020-07-15 10:13 | Outpatient (CLI) | payer OTHER, SELFPAY ==
[2020-07-07 20:17] VITALS: BMI 21.7
[2020-07-15 12:45] LABS: Absolute Lymphocyte Count 1.26 X10^3/uL (0.83-4.51); Absolute Neutrophil Count 4.6 X10^3/uL (2.0-7.7); Basophil# 0.06 X10^3/uL; Basophil% 0.9 % (0-1); Eosinophil# 0.44 X10^3/uL; Eosinophils% 6.4 % (0-5); Hematocrit 32.7 % (40-54); Hemoglobin 10.6 g/dL (13.0-16.5); Lymphocyte # 1.26 X10^3/ul (4.0); Lymphocyte % 18.3 % (19-41); Mean Corp Hgb Conc 32.4 g/dL (32-36); Mean Corpuscular Volume 92.6 fL (80-94); Mean Platelet Vol. 10.3 fl (6.2-12.0); Monocyte# 0.49 X10^3/uL; Monocyte% 7.1 % (0-10); NRBC Flagged by Analyzer 0 % (0-5); Platelet Count 359 K/mm3 (150-450); RBC Distribution Width CV 12.9 % (11.6-14.6); RBC Distribution Width SD 43.8 fl (35.1-43.9); Red Blood Count 3.53 M/mm3 (4.6-6.2); White Blood Count 6.9 K/mm3 (4.4-11.0)
[2020-07-15 12:51] LABS: Anion Gap 5 (5-15); BUN 25 mg/dL (7-18); BUN/Creat Ratio 12.7 RATIO (10-20); Calcium,Total 10.3 mg/dL (8.5-10.1); Chloride 109 mmol/L (98-107); Creatinine, Serum 1.97 mg/dL (0.70-1.30); EST Glomerular Filtration Rate 38 mL/min (>60); Est Glom Filt Rate - Afr Amer 46 mL/min (>60); Glucose 81 mg/dL (74-106); Potassium 3.5 mmol/L (3.5-5.1); Sodium Level 140 mmol/L (136-145)
== END ==
PROVIDERS: PCP Family Medicine; Referring Provider Family Medicine; Visit Provider Family Medicine
DX: D64.9 Anemia, unspecified (principal); E83.52 Hypercalcemia
CPT/HCPCS: 36415; 80048; 85025

== ENCOUNTER → 2020-08-21 13:18 | Outpatient (CLI) | payer OTHER, SELFPAY ==
[2020-07-07 20:17] VITALS: BMI 21.7
[2020-08-21 15:04] LABS: Absolute Lymphocyte Count 1.04 X10^3/uL (0.83-4.51); Basophil# 0.01 X10^3/uL; Basophil% 0.3 % (0-1); Lymphocyte # 1.04 X10^3/ul (4.0); Lymphocyte % 28.9 % (19-41); Mean Corp Hgb Conc 32.4 g/dL (32-36); Mean Corpuscular Hgb 30.7 pg (27.0-32.0); Mean Platelet Vol. 11.1 fl (6.2-12.0); Monocyte# 0.56 X10^3/uL; Monocyte% 15.6 % (0-10); NRBC Flagged by Analyzer 0 % (0-5); Neutrophil # 1.97 X10^3/uL (2.7-7.7); Neutrophil % 54.6 % (47-70); Platelet Count 230 K/mm3 (150-450); RBC Distribution Width CV 13.5 % (11.6-14.6); RBC Distribution Width SD 47.2 fl (35.1-43.9); Red Blood Count 3.58 M/mm3 (4.6-6.2); White Blood Count 3.6 K/mm3 (4.4-11.0)
[2020-08-21 16:15] LABS: AST(SGOT) 30 U/L (15-37); Alanine Aminotransfer ALT/SGPT 22 U/L (16-61); Albumin, Serum 3.6 g/dL (3.2-5.0); Alkaline Phosphatase 72 U/L (45-117); Anion Gap 7 (5-15); BUN 59 mg/dL (7-18); BUN/Creat Ratio 13.2 RATIO (10-20); Calcium,Total 13.1 mg/dL (8.5-10.1); Chloride 104 mmol/L (98-107); Creatinine, Serum 4.47 mg/dL (0.70-1.30); EST Glomerular Filtration Rate 15 mL/min (>60); Est Glom Filt Rate - Afr Amer 18 mL/min (>60); Globulin 3.7 g/dL (2.2-4.2); Glucose 98 mg/dL (74-106); Potassium 3.4 mmol/L (3.5-5.1); Protein, Total 7.3 g/dL (6.4-8.2); Sodium Level 142 mmol/L (136-145)
== END ==
PROVIDERS: PCP Family Medicine; Referring Provider Family Medicine; Visit Provider Family Medicine
DX: N19 Unspecified kidney failure (principal); D64.9 Anemia, unspecified
CPT/HCPCS: 36415; 80053; 85025

== ENCOUNTER 2020-08-21 18:24 | Inpatient (IN) | payer OTHER, SELFPAY ==
[2020-07-07 20:17] VITALS: BMI 21.7
[2020-08-21 18:25] VITALS: BP 135/89; PULSE 105; RESP 16; TEMP 36.3; O2SAT 98; BMI 22.3
--- NOTE | 2020-08-21 19:35 | CT_ITS ---
STUDY: CT BRAIN WITHOUT CONTRAST REASON FOR EXAM: Male, 54 years old. Altered mental status weakness confusion ataxia walking gait difficulty RADIATION DOSAGE (If Supplied By Facility): CTDIvol = ( 44.99 ) mGy, DLP = ( 779.24 ) mGycm TECHNIQUE: Transaxial CT imaging of the brain was performed without administration of intravenous contrast material. Individualized dose optimization techniques were used for this CT. COMPARISON: No relevant priors. FINDINGS: Brain parenchyma is without focal lesions, mass effect, acute intracranial hemorrhage, extra parenchymal fluid collections, hydrocephalus or herniation. The skull is intact. CT/Brain/Head without Contrast IMPRESSION: 1. Normal CT brain. Electronically Signed: Nidhi Junior, at 20:39 EDT Tel , Service support ,
[2020-08-21 19:37] VITALS: PULSE 97; RESP 16; O2SAT 98
--- NOTE | 2020-08-21 19:49 | ED.VIS.STROK ---
History of Present Illness Chief Complaint: Abn Labs Informant: Patient, Family Onset: Weeks - Approximately 1 week Context: - - UNcertain since patient is disoriented Quality and Location: Difficulty with Ambulation Current Severity: Moderate Maximum Severity: Moderate Worsened by: Nothing Relieved by: Nothing Associated Symptoms: Headache - Headache has been intermittent. Patient not able to localize. Narrative: Patient is an elderly male who has history of schizoaffective disorder on Cogentin and Haldol who was sent in because of trouble ambulating. According to his relative this has been a problem for approximately week. He was unaware that he had a facial droop. He is disoriented. He does report intermittent headache. Is unable to quantitate or qualitate or localize. No complaint of double vision, blurred vision loss of vision. No cardiac respiratory symptoms port. No GI symptoms. No urologic symptoms. Prior similar symptoms: No Recent Illness/Hospitalization: No - Past Medical History (1) Schizoaffective disorder Status: Acute (2) Hypercalcemia Status: Acute Past Medical History - Allergies and Home Meds Allergies/Adverse Reactions: Allergies No Known Allergies Allergy (Verified 07/07/20 17:30) Primary Care Physician: Jonny Matthews MD [Primary Care Provider] - Prior records reviewed: Yes Surgical History: no surgical history Lives: With Family Smoking Status: Light Smoker (<10/day) Alcohol: None Drugs: None Review of Systems General: Denies: Chills, Fever Eyes: Denies: Visual changes - bilaterally, Blurred Vision - bilaterally, Diplopia ENT: Denies: Rhinorrhea, Sore throat Cardiovascular: Denies: Chest pain, Palpitations Respiratory: Denies: Dyspnea, Cough, Dyspnea on exertion Gastrointestinal: Denies: Abdominal pain, Nausea, Vomiting, Diarrhea Genitourinary: Denies: Dysuria, Hematuria Musculoskeletal: Denies: Myalgias, Arthralgias Skin: Denies: Rash Neurological: Reports: Headache, Weakness. Denies: Parasthesia, Numbness Endocrine: Denies: Polyuria, Polydipsia STROKE Vital Signs/Narrative: Vital Signs Temp Pulse Resp BP Pulse Ox 08/21/20 18:25 97.3 F L 105 H 16 135/89 H 98 Inital Vital Signs reviewed: Yes - NIHSS Initial 1a Level of Consciousness: 0 1b LOC Questions (Score 2 if aphasic/stupor): 2 1c LOC Commands (Only score 1st attempt): 0 2 Best Gaze (If aphasic, use reflexive mvmts.): 0 3 Visual: 0 4 Facial Palsy: 2 5 Motor Arm Right (UN = amputation/fusion): 0 5 Motor Arm Left: 0 6 Motor Leg Right: 0 6 Motor Leg Left: 0 7 Limb ataxia (Only + if out of proportion): 0 8 Sensory (Aphasia/stupor=0 or 1, coma=2): 0 9 Best Language: 1 10 Dysarthria (mute, coma=2, intubated=UN): 0 11 Extinction and Inattention (only scored if +): 0 Total Score: 5 General: Well nourished, Well developed Head: Normocephalic, Atraumatic Eyes: Perrl, EOMI. Negative for: Pale conjunctiva, Scleral icterus ENT: Moist mucous membranes, No rhinorrhea, TM's clear Neck: Supple, Nontender, No lymphadenopathy, No JVD Cardiovascular: Regular rate, Regular rhythm, No murmurs, Normal S1, Normal S2 Respiratory: No distress, CTA bilaterally, Chest nontender Abdomen: Soft, Nontender, Nondistended, Normal bowel sounds Rectal: Deferred Back: Nontender, Normal Inspection Extremities: Nontender, No edema, - - Patient has clubbing of his digits. Skin: Normal color, No rash, No Trauma. Negative for: Cyanosis, Diaphoresis, Jaundice Neurological: Alert, Normal Strength, Normal Sensation, Normal DTR, - - No clonus or Babinski sign right or left. Negative for: Oriented x3, Cranial nerves II-XII grossly intact Psychological: Normal affect Diagnostic/Tx/Re-eval Impressions Brain CT 08/21/20 19:35 IMPRESSION: 1. Normal CT brain. Electronically Signed: Nidhi Junior, at 20:39 EDT Tel , Service support , 08/21/20 19:35 Brain/Head without Contrast [CT] Stat 08/21/20 20:20 Chest PA and Lateral [RAD] Stat Laboratory Results 08/21/20 19:38 PT 12.9 INR 1.0 APTT 24.8 Radiologist read bilateral mediastinal lymphadenopathy and early infiltrates. Would not expect infiltrates to cause clubbing. Suspect this is cancer. Will call hospitalist for CT of the chest and MRI of the brain to further evaluate patient's symptoms. Blood work obtained prior to arrival reveals neutropenia with macrocytosis Citic anemia. He has evidence of renal failure with a creatinine of 4.47. Calcium ~13.1 most likely due to malignancy. UA macro was negative. Chest X-Ray - ED: 2 View, - - Patient has multiple circular lesions consistent with cancer possible metastatic - Medical Decision Making Stroke Team Activated: No Reviewed Inclusion/Exclusion criteria: No Was Patient considered for Endovascular Intervention?: No IV Alteplase (t-PA) Administered: No No contraindications for IV Alteplase (t-PA) administration.: No - Onset of symptoms 1 week ago Alteplase (t-PA) risks, benefits, alternative discussed: No Presents with trouble with balance. He has objective neurologic findings. Concern patient may have had a stroke versus metastatic lesion. CT of the head was obtained to assess his altered mental status and neuro findings. Blood work was obtained prior to arrival. Additional blood work was ordered. Because he has clubbing and concern for malignancy a chest x-ray was obtained. Son informed that he has an appointment to see spear fisher next week. He is uncertain whether it is Dr. Nader Ludwig ED Disposition - Plan for ED Patient: Disposition: Acute Care Hospital [facility] Diagnosis: Lung nodule, multiple, Mediastinal lymphadenopathy, Neurological deficit present, Hypercalcemia, Acute kidney injury Referrals: Jonny Matthews MD [Primary Care Provider] -
--- NOTE | 2020-08-21 20:20 | RAD_ITS ---
STUDY: X-RAY CHEST REASON FOR EXAM: Male, 54 years old. WEAKNESS, CONFUSION, ELEVATED CALCIUM. TECHNIQUE: Frontal and lateral views of the chest COMPARISON: July 08 2020 FINDINGS: There is no pneumothorax, pulmonary edema or pleural effusions. There is right hilar mass, with possible mediastinal lymphadenopathy. There are scattered pulmonary focal nodular opacities. Osseous structures are intact. RAD/Chest PA and Lateral IMPRESSION: 1. Mediastinal lymphadenopathy, refer to definitive imaging.. 2. Questionable early pneumonia bilaterally. Electronically Signed: Nidhi Junior, at 20:46 EDT Tel , Service support ,
[2020-08-21 20:30] VITALS: BP 158/92; PULSE 97; RESP 16; TEMP 37.4; O2SAT 98
[2020-08-21] MEDS: 0.9% Normal Saline 1,000 ML 150 ML IV (20:36)
[2020-08-21 20:39] LABS: Partial Thromboplast Time 24.8 Seconds (24.1-36.2); Prothrombin Time (Protime)PT. 12.9 SECONDS (11.7-14.9)
[2020-08-21 20:43] LABS: Bacteria 0 SEEN /hpf (None Seen); Color, Urine Yellow (Yellow); Glucose, Dipstick Normal (Normal); Ketone-Dipstick Negative (Negative); Leukocyte Esterase-Dipstick Negative /ul (Negative); Mucous, Urine 0 SEEN /hpf (<or=2+); Nitrite-Dipstick Negative (Negative); Occult Blood-Urine Negative /ul (Negative); Protein-Dipstick Negative (Negative); Red Blood Cells-Urine 0 SEEN /hpf (0-5); Squamous Epithelial Cells - UA 0 SEEN /hpf (0-5); Urine Bilirubin Dipstick Negative (Negative); Urine Clarity Clear (Clear); Urine Urobilinogen Normal (Normal); White Blood Cells 0 SEEN /hpf (0-5)
--- NOTE | 2020-08-21 20:43 | EKG12_ITS ---
Test Reason : DYSRHYTHMIA Blood Pressure : / mmHG Vent. Rate : 086 BPM Atrial Rate : 086 BPM P-R Int : 138 ms QRS Dur : 078 ms QT Int : 326 ms P-R-T Axes : 060 024 032 degrees QTc Int : 390 ms Normal sinus rhythm Normal ECG Confirmed by DAINA ENNIS, JOE ([id number]), technical writer and editor GUILHERME HICKS ([id number]) on 09/04/2020 9:46:28 A M Referred By: HERNANDO Confirmed By:ELKE LAMA MD
[2020-08-21 21:28] VITALS: BP 130/76; PULSE 83; RESP 16; TEMP 38.9; O2SAT 98
--- NOTE | 2020-08-21 21:57 | HP.PCM_ITS ---
Problem List (1) Metabolic encephalopathy Status: Acute (2) Hypercalcemia Status: Acute (3) Schizoaffective disorder Status: Chronic (4) Lung nodule, multiple Status: Chronic (5) Mediastinal lymphadenopathy Status: Chronic (6) Neurological deficit present Status: Resolved (7) Acute kidney injury Status: Acute (8) Sepsis Status: Acute History of Present Illness Date of Admission: 08/21/20 Chief Complaint: confusion The patient is a 54 year old M presents with confusion and headache and trouble ambulating. Found to have hypercalcemia of 13. Patient was then started on IVF. Afterwards, he developed a fever. Patient's brother is unsure if patient had any COVID-19 contacts. Patient was admitted last month with an even higher calcium level and it was treated with IV fluids during that admission. Patient was to follow-up with pulmonology as outpatient. [] Past Medical History Past Medical History (Chronic Problems): Chronic Problems (Last Reviewed 07/07/20 @ 20:[address] Hansel Coto MD) Schizoaffective disorder (Chronic) Lung nodule, multiple (Chronic) Mediastinal lymphadenopathy (Chronic) Medical History: Medical History (Last Reviewed 08/21/20 @ 22:[address] Rajiv Marin DO) GERD (gastroesophageal reflux disease) K21.9 Hypercalcemia E83.52 Light tobacco smoker F17.200 Paranoid schizophrenia F20.0 Restless leg G25.81 Allergies No Known Allergies Allergy (Verified 07/07/20 17:30) Home Medications: Ambulatory Orders Medication Instructions Recorded Benztropine [Cogentin] 4 mg PO BID 07/07/20 Haloperidol [Haldol] 5 mg PO BID 07/07/20 l-Mefol/A-Cyst/Meb12/Algal Oil 1 ea PO DAILY 07/07/20 [Cerefolin Nac Caplet] Surgical History: Surgical History (Last Reviewed 08/21/20 @ 22:[address] Rajiv Marin DO) History of appendectomy Z90.49 Surgical History: no surgical history Lives: With Family Smoking Status: Light Smoker (<10/day) Alcohol: None Drugs: None - *Family History Maternal Family History: Family History (Last Reviewed 08/21/20 @ 22:[address] Rajiv Marin DO) Aunt Cancer Uncle Cancer Mother Pacemaker Review of Systems Unable to obtain accurate/complete ROS d/t: As patient is confused. VTE Information - Inpt Only VTE Present on Admission: No VTE Mechan Device Prophylaxis: None VTE Pharm Prophylaxis ordered?: Yes Patient Problems: Active and Suspected Problems (Last Reviewed 07/07/20 @ 20:[address] Hansel Coto MD) Hypercalcemia (Acute) Acute kidney injury (Acute) - Physical Exam Vitals/I&O's: Vital Signs Temp Pulse Resp BP Pulse Ox 38.9 C H 83 16 130/76 H 98 08/21/20 21:28 08/21/20 21:28 08/21/20 21:28 08/21/20 21:28 08/21/20 21:28 Oxygen Delivery Method Room Air Weight: 72.575 kg Body Mass Index (BMI) 22.3 General: Alert, No apparent distress HEENT: Atraumatic, Normocephalic Oral: Moist Mucosa, No Gingival or Mucosal Lesions/ Ulcerations Neck: No Nodes, Thyroid Normal Size and Texture Lungs: Clear to auscultation, Normal air movement, No rhonchi, No wheeze, No rales Cardiovascular: Regular rate, Regular Rhythm, Normal S1, Normal S2, No murmurs Abdomen: Bowel Sounds Present, Soft, Non Tender, Non-Distended, No Hepato- splenomegaly Extremities: No edema, No Calf Tenderness Skin: No rashes, No breakdown Musculoskeletal: No Tenderness to Palpation of Joints or Extremities, No Muscle Wasting Neurological: Cranial nerves II-XII grossly intact, Motor Exam 5/5 strength throughout, Coordination normal Psych/Mental Status: Appropriate, Anxious Laboratory Results 08/21/20 19:38: PT 12.9, INR 1.0, APTT 24.8 08/21/20 20:33: Urine Color Yellow, Urine Clarity Clear, Urine pH 6.0, Ur Specific [place] 1.010, Urine Protein Negative, Urine Glucose (UA) Normal, Urine Ketones Negative, Urine Occult Blood Negative, Urine Nitrite Negative, Urine Bilirubin Negative, Urine Urobilinogen Normal, Ur Leukocyte Esterase Negative, Urine RBC 0 SEEN, Urine WBC 0 SEEN, Ur Squamous Epith Cells 0 SEEN, Urine Bacteria 0 SEEN, Urine Mucus 0 SEEN Chest x-ray reviewed and showed lymphadenopathy. Questionable early infiltrate. Clinical Impression(s) from Imaging Studies Brain CT 08/21/20 19:35 IMPRESSION: 1. Normal CT brain. Electronically Signed: Iliya Khramov, at 20:39 EDT Tel , Service support , Chest X-Ray 08/21/20 20:20 IMPRESSION: 1. Mediastinal lymphadenopathy, refer to definitive imaging.. 2. Questionable early pneumonia bilaterally. Electronically Signed: Nidhi Junior, at 20:46 EDT Tel , Service support , EKG reviewed and showed normal sinus rhythm with no acute changes. Current Medications Sodium Chloride () 1,000 mls @ 150 mls/hr IV .Q6H40M SUPA Last Admin: 08/21/20 20:36 Dose: 150 mls/hr Documented by: Assessment/Plan All Active Problems (Last Reviewed 07/07/20 @ 20:[address] Hansel Coto MD) Hypercalcemia (Acute) Neurological deficit present (Resolved) Acute kidney injury (Acute) Metabolic encephalopathy (Acute) Sepsis (Acute) 1. Hypercalcemia: Recurrent. Etiologies include malignancy (lung cancer versus multiple myeloma) versus sarcoidosis. Patient responded well with fluids during the last admission saline IV fluids at 200 cc/h. No indication for any calcitriol or bisphosphonates at this time. 2. Metabolic encephalopathy: Secondary to the hypercalcemia: Monitor. Will hold off on his Cogentin and Haldol. 3. Acute kidney injury: IV fluids and reevaluate. If worse, consider consultation to nephrology. Baseline creatinine appears to be around 1.97 and currently it is 4.47. 4. Sepsis: Patient really does not feel febrile but his temperature on 2 different thermometers. Questionable infiltrate so we will put the patient on broad-spectrum antibiotics with Pipracil/tazobactam and vancomycin. Follow-up on cultures as well as COVID-19. I do not suspect this is COVID-19 but the brother is confident patient has not had exposure COVID-19. If he does have confirm COVID-19 then will start the patient on dexamethasone and consult infectious disease. Patient meeting sepsis criteria with a fever of 38.9 Celsius as well as leukopenia with a hemoglobin of 3.6. 5. Hilar lymphadenopathy: Was noted on CAT scan from July. Once again concern with could be malignancy versus sarcoidosis. Will consult pulmonary for further recommendations. Suspect patient will require bronchoscopy with biopsy but will defer to pulmonary as to the timing of that. Informed the patient's brother that that would not be done over the weekend and may be done as outpatient. 6. VTE prophylaxis: Lovenox weight heparin. Inpatient E&M: 21202 Init Hosp L3
[2020-08-21 22:38] LABS: Lactic Acid 0.7 mmol/L (0.4-1.9)
[2020-08-21 22:58] VITALS: BP 145/84; PULSE 86; RESP 28; TEMP 37.1; O2SAT 98
[2020-08-21 23:30] VITALS: BP 126/61; PULSE 84; RESP 18; TEMP 39.4; O2SAT 96
[2020-08-22] VITALS (12 sets, daily range): BP systolic 104–157; BP diastolic 63–88; PULSE 64–85; RESP 11–24; TEMP 36.9–38.1; O2SAT 97–100; BMI 21.2
[2020-08-22] MEDS: Acetaminophen 500 MG Tablet 1000 MG PO (00:15)
[2020-08-22 01:00] LABS: Probe Check PASS; Specimen Processing Control PASS
[2020-08-22] MEDS: 0.9% Normal Saline 1,000 ML 200 ML IV ×4 (02:30→19:30)
[2020-08-22 02:39] LABS: Absolute Lymphocyte Count 0.83 X10^3/uL (0.83-4.51); Absolute Neutrophil Count 1.9 X10^3/uL (2.0-7.7); Basophil# 0.01 X10^3/uL; Basophil% 0.3 % (0-1); Hematocrit 29.6 % (40-54); Hemoglobin 9.7 g/dL (13.0-16.5); Lymphocyte # 0.83 X10^3/ul (4.0); Lymphocyte % 26.9 % (19-41); Mean Corp Hgb Conc 32.8 g/dL (32-36); Mean Corpuscular Volume 94.6 fL (80-94); Mean Platelet Vol. 10.4 fl (6.2-12.0); Monocyte# 0.38 X10^3/uL; Monocyte% 12.3 % (0-10); NRBC Flagged by Analyzer 0 % (0-5); Neutrophil # 1.86 X10^3/uL (2.7-7.7); Neutrophil % 60.2 % (47-70); Platelet Count 202 K/mm3 (150-450); RBC Distribution Width CV 13.3 % (11.6-14.6); RBC Distribution Width SD 45.9 fl (35.1-43.9); Red Blood Count 3.13 M/mm3 (4.6-6.2); White Blood Count 3.1 K/mm3 (4.4-11.0)
[2020-08-22 02:52] LABS: International Normalized Ratio 1.1; Prothrombin Time (Protime)PT. 13.5 SECONDS (11.7-14.9)
[2020-08-22 02:53] LABS: Fibrinogen 442 mg/dl (203-444)
[2020-08-22 02:58] LABS: LDH 208 U/L (87-241)
[2020-08-22 02:59] LABS: Anion Gap 7 (5-15); BUN 56 mg/dL (7-18); BUN/Creat Ratio 13.6 RATIO (10-20); Calcium,Total 11.7 mg/dL (8.5-10.1); Chloride 109 mmol/L (98-107); Creatinine, Serum 4.12 mg/dL (0.70-1.30); EST Glomerular Filtration Rate 16 mL/min (>60); Est Glom Filt Rate - Afr Amer 19 mL/min (>60); Glucose 97 mg/dL (74-106); Lactic Acid 0.7 mmol/L (0.4-1.9); Potassium 3.1 mmol/L (3.5-5.1); Sodium Level 142 mmol/L (136-145)
[2020-08-22 03:08] LABS: Procalcitonin 0.47 ng/mL (0.00-0.09)
[2020-08-22 04:28] LABS: D-Dimer Quantitative (DVT/PE) 1.22 FEU/ug/m (0.27-0.49)
[2020-08-22 05:24] LABS: Magnesium 1.5 mg/dL (1.6-2.6)
--- NOTE | 2020-08-22 05:42 | PHA.PHARE_ITS ---
Consult Pharmacy has been consulted to manage selected antiobiotic: Vancomycin Type of Consult: New start Suspected Infection: Sepsis Prior Doses of Antibiotics Received/Current Regimen: Medications Discontinued Medications Vancomycin HCl 1,750 mg/ (Sodium Chloride) 535 mls @ 250 mls/hr IV X1 ONE Stop: 08/22/20 04:38 Last Admin: 08/22/20 04:15 Dose: 250 mls/hr Labs: Sodium 142 mmol/L (136-145) 08/22/20 02:30 Potassium 3.1 mmol/L (3.5-5.1) L 08/22/20 02:30 Chloride 109 mmol/L (98-107) H 08/22/20 02:30 Carbon Dioxide 26.0 mmol/L (21.0-32.0) 08/22/20 02:30 Anion Gap 7 (5-15) 08/22/20 02:30 BUN 56 mg/dL (7-18) H 08/22/20 02:30 Creatinine 4.12 mg/dL (0.70-1.30) H 08/22/20 02:30 Est GFR (MDRD) Af Amer 19 mL/min (>60) L 08/22/20 02:30 Est GFR (MDRD) Non-Af 16 mL/min (>60) L 08/22/20 02:30 BUN/Creatinine Ratio 13.6 RATIO (-) 08/22/20 02:30 Glucose 97 mg/dL (74-106) 08/22/20 02:30 Microbiology: Microbiology 08/22/20 02:16 Mucosa - Nasopharyngeal - Final Weight used for dosin.6 kg Estimated Creatinine Clearance: 19 Goal Trough: 15-20 mcg/mL Pharmacy Plan for Drug Dosing: Loading dose of 1750mg was given. Since current CrCl=19, will draw a random level in am of 08/23/20 to determine further dosing. Pharmacy Service will continue to monitor and adjust dosing as required. Follow-Up Labs: Trough Vancomycin - random Labs to be done on [date and time ordered]: 08/23/20 @0600
[2020-08-22] MEDS: Magnesium Sulfate 4gm/100mL 4 GM/100 ML IV.SOLN. IV (07:00)
--- NOTE | 2020-08-22 07:24 | PN_ITS ---
Patient Problems: Active and Suspected Problems (Last Reviewed 08/21/20 @ 22:[address] Rajiv Marin, DO) Hypercalcemia (Acute) Acute kidney injury (Acute) Metabolic encephalopathy (Acute) Sepsis (Acute) Neurological deficit present (Acute) Reason for Visit: Follow-up on hypercalcemia/COVID-19 Subjective: Patient was seen and examined. He is alert oriented x3. Denied any new complaint. Objective: Physical exam: General: Alert, No apparent distress HEENT: Atraumatic, Normocephalic Oral: Moist Mucosa, No Gingival or Mucosal Lesions/ Ulcerations Neck: No Nodes, Thyroid Normal Size and Texture Lungs: Clear to auscultation, Normal air movement, No rhonchi, No wheeze, No rales Cardiovascular: Regular rate, Regular Rhythm, Normal S1, Normal S2, No murmurs Abdomen: Bowel Sounds Present, Soft, Non Tender, Non-Distended, No Hepato- splenomegaly Extremities: No edema, No Calf Tenderness Skin: No rashes, No breakdown Musculoskeletal: No Tenderness to Palpation of Joints or Extremities, No Muscle Wasting Neurological: Cranial nerves II-XII grossly intact, Motor Exam 5/5 strength throughout, Coordination normal Psych/Mental Status: Appropriate, Anxious Vitals/I&O's: Vital Signs Temp Pulse Resp BP Pulse Ox 100.6 F H 64 16 127/78 H 100 08/22/20 05:00 08/22/20 06:00 08/22/20 06:00 08/22/20 06:00 08/22/20 06:00 Oxygen Delivery Method Room Air Weight: 67 kg Body Mass Index (BMI) 21.2 Intake and Output for Last 24 Hours 08/20/20 08/21/20 08/22/20 23:59 23:59 23:59 Intake Total 1886 / 188 Balance 1886 / 1886 Microbiology Past 72 Hours 08/22/20 02:16 Mucosa - Nasopharyngeal - Final Laboratory Results 08/21/20 19:38: PT 12.9, INR 1.0, APTT 24.8 08/21/20 20:33: Urine Color Yellow, Urine Clarity Clear, Urine pH 6.0, Ur Specific [place] 1.010, Urine Protein Negative, Urine Glucose (UA) Normal, Urine Ketones Negative, Urine Occult Blood Negative, Urine Nitrite Negative, Urine Bilirubin Negative, Urine Urobilinogen Normal, Ur Leukocyte Esterase Negative, Urine RBC 0 SEEN, Urine WBC 0 SEEN, Ur Squamous Epith Cells 0 SEEN, Urine Bacteria 0 SEEN, Urine Mucus 0 SEEN 08/21/20 21:48: Lactic Acid 0.7 08/21/20 21:55: COVID-19 ([facility]) Detected 08/22/20 02:30: PT 13.5, INR 1.1, Fibrinogen 442, D-Dimer Quant (PE/DVT) 1.22 H* 08/22/20 02:30: Lactic Acid 0.7 08/22/20 02:30: Lactate Dehydrogenase 208 08/22/20 02:30: Procalcitonin 0.47 H 08/22/20 02:30: WBC 3.1 L, RBC 3.13 L, Hgb 9.7 L, Hct 29.6 L, MCV 94.6 H, MCH 31.0, MCHC 32.8, RDW Std Deviation 45.9 H, RDW Coeff of Madie 13.3, Plt Count 202, MPV 10.4, Immature Gran % (Auto) 0.300, Neut % (Auto) 60.2, Lymph % (Auto) 26.9, [place] % (Auto) 12.3 H, Eos % (Auto) 0.0, Baso % (Auto) 0.3, Absolute Neuts (auto) 1.9 L, Absolute Lymphs (auto) 0.83, Nucleated RBC % 0 08/22/20 02:30: Sodium 142, Potassium 3.1 L, Chloride 109 H, Carbon Dioxide 26.0, Anion Gap 7, BUN 56 H, Creatinine 4.12 H, Estim Creat Clear Calc 19.20, Est GFR (MDRD) Af Amer 19 L, Est GFR (MDRD) Non-Af 16 L, BUN/Creatinine Ratio 13.6, Glucose 97, Calcium 11.7 H 08/22/20 : Magnesium 1.5 L Current Medications Acetaminophen (Acetaminophen 325 Mg Tablet) 650 mg PO Q6H PRN PRN PRN Reason: Pain Score 1-10/Temp > 100.7 F Benztropine Mesylate (Benztropine 2 Mg Tablet) 4 mg PO BID COUNT INCLUDES THE [facility] Dexamethasone Sodium Phosphate (Dexamethasone 10 Mg/Ml Vial) 6 mg IV DAILY COUNT INCLUDES THE [facility] Enoxaparin Sodium (Enoxaparin 40 Mg/0.4 Ml Syringe) 40 mg SC BID SUPA Haloperidol (Haloperidol 5 Mg Tablet) 5 mg PO BID SUPA Sodium Chloride () 1,000 mls @ 200 mls/hr IV .Q5H SUPA Last Infusion: 08/22/20 04:15 Dose: 0 mls/hr Documented by: Vancomycin IV Pharmacy to Dose (1 ea/ Sodium Chloride) 500 mls @ 250 mls/hr IV PRN PRN; Protocol PRN Reason: Rx to Dose Sodium Chloride () 250 mls @ 15 mls/hr IV .[id number] PRN PRN Reason: Saline Flush Magnesium Sulfate () 4 gm in 100 mls @ 25 mls/hr IV X1 ONE Stop: 08/22/20 10:12 Last Admin: 08/22/20 07:00 Dose: 25 mls/hr Documented by: Ondansetron HCl (Ondansetron 4 Mg/2 Ml Vial) 4 mg IV Q8H PRN PRN PRN Reason: NAUSEA/VOMITING Sodium Chloride (0.9% Saline Lock 10 Ml Syringe) 10 - 40 ml IV UD PRN PRN Reason: SALINE FLUSH STROKE Vital Signs/Narrative: Vital Signs Temp Pulse Resp BP Pulse Ox 08/22/20 06:00 64 16 127/78 H 100 08/22/20 05:00 100.6 F H 66 18 114/75 97 08/22/20 04:35 65 08/22/20 04:00 99.3 F H 71 17 118/85 H 99 Medical Necessity - Tobacco Use Smoking Status: Light Smoker (<10/day) Tobacco Use: Cigarettes Assessment/Plan All Active Problems (Last Reviewed 08/21/20 @ 22:[address] Rajiv Marin, DO) Hypercalcemia (Acute) Neurological deficit present (Resolved) Acute kidney injury (Acute) Metabolic encephalopathy (Acute) Sepsis (Acute) Neurological deficit present (Acute) 1. Acute metabolic encephalopathy secondary to hypercalcemia, resolved, continue to monitor 2. Hypercalcemia, recurrent, unclear etiologies for now, improving with IV fluids No indication for any calcitriol or bisphosphonates at this time. Repeat blood work in a.m. 2. Hypokalemia, hypomagnesemia, replaced, recheck in a.m. 3. Acute kidney injury secondary to #2: IV fluids and reevaluate. If worse, consider consultation to nephrology. Baseline creatinine appears to be around 1.97 and currently it is 4.47. 4. Sepsis secondary to COVID-19 infection, admitting chest x-ray shows questionable early pneumonia, patient is currently being monitored Currently on ceftriaxone 5. DVT prophylaxis with enoxaparin Inpatient E&M: [id number] [facility] Hosp L3
--- NOTE | 2020-08-22 08:18 | CON.PCM_ITS ---
Problem List (1) Hypercalcemia Status: Acute (2) Schizoaffective disorder Status: Chronic Qualifiers: Schizoaffective disorder type: bipolar Qualified Code(s): F25.0 - Schizoaffective disorder, bipolar type (3) Lung nodule, multiple Status: Chronic (4) Mediastinal lymphadenopathy Status: Chronic (5) Acute kidney injury Status: Acute (6) Metabolic encephalopathy Status: Acute (7) Sepsis Status: Acute Reason for Consult Date of Consultation: 08/22/20 Reason for Consultation: Hypercalcemia History of Present Illness: The patient is a 54 year old M, with past medical history listed below, who presented was [facility] on 08/21/2020 secondary to a one-week history of progressive trouble ambulating. Patient was reportedly not complaining of focal neurologic deficits, but was noted to have a left facial droop. Patient was disoriented on presentation to the ER and had reported an intermittent headache. Patient did not report any cardiac or respiratory symptoms. Patient had not had any nausea, vomiting or diarrhea. In the ER, patient was initially made a stroke team. Initial NIH was noted to be 5 with deficits for LOC questions and facial palsy. Patient had a CT of the head that was within normal limits. INR was within normal limits. Chest x-ray showed bilateral mediastinal lymphadenopathy with early infiltrates. There was some concern for clubbing indicating a long-term problem. Patient's blood work was significant for acute renal failure with a creatinine of 4.47 with a calcium of 13.1. During patient's hospital course, patient was noted to have a temperature of 103 ?F. Patient was tested for COVID-19 and found to be positive. Patient was admitted to the cohort unit for further evaluation. Since being in the cohort unit, patient has remained hemodynamically stable. Patient has not had any significant arrhythmias noted. Patient is not reporting any abdominal pain, but does have a slight headache. Patient states my fog is getting better. Patient denies any muscle cramping, hematuria or bowel issues. Patient is unaware of any previous abnormalities on imaging. Patient does not believe he has any breathing issues. Patient reports he has been on the same psych medications since 1984 with no recent changes. Patient does report a history of smoking, but does not really quantify. Review of systems is difficult, but review of systems otherwise negative from a constitutional, HEENT, respiratory, cardiovascular, GI, genitourinary, musculoskeletal, skin, neurologic, psychiatric and hematologic system unless stated above. Past Medical History Past Medical History (Chronic Problems): Chronic Problems (Last Reviewed 08/21/20 @ 22:[address] Rajiv Marin DO) Schizoaffective disorder (Chronic) Lung nodule, multiple (Chronic) Mediastinal lymphadenopathy (Chronic) Medical History: Medical History (Last Reviewed 08/21/20 @ 22:[address] Rajiv Marin DO) GERD (gastroesophageal reflux disease) K21.9 Hypercalcemia E83.52 Light tobacco smoker F17.200 Paranoid schizophrenia F20.0 Restless leg G25.81 Allergies No Known Allergies Allergy (Verified 07/07/20 17:30) Home Medications: Ambulatory Orders Medication Instructions Recorded Benztropine [Cogentin] 4 mg PO BID 07/07/20 Haloperidol [Haldol] 5 mg PO BID 07/07/20 l-Mefol/A-Cyst/Meb12/Algal Oil 1 ea PO DAILY 07/07/20 [Cerefolin Nac Caplet] Surgical History: Surgical History (Last Reviewed 08/21/20 @ 22:[address] Rajiv Marin DO) History of appendectomy Z90.49 Surgical History: no surgical history Lives: With Family Smoking Status: Light Smoker (<10/day) Tobacco Use: Cigarettes Alcohol: None Drugs: None - *Family History Maternal Family History: Family History (Last Reviewed 08/21/20 @ 22:[address] Rajiv Marin DO) Aunt Cancer Uncle Cancer Mother Pacemaker Review of Systems Unable to obtain accurate/complete ROS d/t: See HPI Patient Problems: Active and Suspected Problems (Last Reviewed 08/21/20 @ 22:[address] Rajiv Marin DO) Hypercalcemia (Acute) Acute kidney injury (Acute) Metabolic encephalopathy (Acute) Sepsis (Acute) Neurological deficit present (Acute) Objective: Chest x-ray was personally reviewed and does show early bilateral infiltrates with a right hilar fullness. A CT scan had been completed at [facility] in July showing bilateral hilar adenopathy without nodules or emphysematous changes. Patient has never had an echocardiogram. - Physical Exam Vitals/I&O's: Vital Signs Temp Pulse Resp BP Pulse Ox 38.1 C H 64 16 127/78 H 100 08/22/20 05:00 08/22/20 06:00 08/22/20 06:00 08/22/20 06:00 08/22/20 06:00 Oxygen Delivery Method Room Air Weight: 67 kg Body Mass Index (BMI) 21.2 Intake and Output for Last 24 Hours 08/20/20 08/21/20 08/22/20 23:59 23:59 23:59 Intake Total 1886 Balance 1886 General: Alert, Oriented x3, Cooperative, No apparent distress, - - Some difficulty with answering some questions HEENT: Atraumatic, PERRLA, EOMI, Normocephalic, - - No scleral icterus or injection noted. Left facial droop noted Oral: Moist Mucosa, No Gingival or Mucosal Lesions/ Ulcerations Neck: Supple, No JVD, No Nodes, Trachea Midline Lungs: Clear to auscultation, Normal air movement, No rhonchi, No wheeze, No rales, - - Symmetric expansion. No dullness to percussion. Cardiovascular: Regular rate, Regular Rhythm, Normal S1, Normal S2, No murmurs, No rub noted, No Gallop Abdomen: Bowel Sounds Present, Soft, Non Tender, Non-Distended Extremities: No cyanosis, No edema, Capillary Refill Less than 3 Seconds, Clubbing Skin: No rashes, No breakdown Musculoskeletal: No Tenderness to Palpation of Joints or Extremities Lymphatic: No Cervical, Supraclavicular, or Inguinal Adenopathy Neurological: - - Left facial droop noted. Otherwise, neurologic function is intact without focal deficit. NIH of 2 Psych/Mental Status: Flat Affect Microbiology Past 72 Hours 08/22/20 02:16 Mucosa - Nasopharyngeal - Final Laboratory Results 08/21/20 19:38: PT 12.9, INR 1.0, APTT 24.8 08/21/20 20:33: Urine Color Yellow, Urine Clarity Clear, Urine pH 6.0, Ur Speci fic [place] 1.010, Urine Protein Negative, Urine Glucose (UA) Normal, Urine Ketones Negative, Urine Occult Blood Negative, Urine Nitrite Negative, Urine Bilirubin Negative, Urine Urobilinogen Normal, Ur Leukocyte Esterase Negative, Urine RBC 0 SEEN, Urine WBC 0 SEEN, Ur Squamous Epith Cells 0 SEEN, Urine Bacteria 0 SEEN, Urine Mucus 0 SEEN 08/21/20 21:48: Lactic Acid 0.7 08/21/20 21:55: COVID-19 ([facility]) Detected 08/22/20 02:30: PT 13.5, INR 1.1, Fibrinogen 442, D-Dimer Quant (PE/DVT) 1.22 H* 08/22/20 02:30: Lactic Acid 0.7 08/22/20 02:30: Lactate Dehydrogenase 208 08/22/20 02:30: Procalcitonin 0.47 H 08/22/20 02:30: WBC 3.1 L, RBC 3.13 L, Hgb 9.7 L, Hct 29.6 L, MCV 94.6 H, MCH 31.0, MCHC 32.8, RDW Std Deviation 45.9 H, RDW Coeff of Madie 13.3, Plt Count 202, MPV 10.4, Immature Gran % (Auto) 0.300, Neut % (Auto) 60.2, Lymph % (Auto) 26.9, [place] % (Auto) 12.3 H, Eos % (Auto) 0.0, Baso % (Auto) 0.3, Absolute Neuts (auto) 1.9 L, Absolute Lymphs (auto) 0.83, Nucleated RBC % 0 08/22/20 02:30: Sodium 142, Potassium 3.1 L, Chloride 109 H, Carbon Dioxide 26.0, Anion Gap 7, BUN 56 H, Creatinine 4.12 H, Estim Creat Clear Calc 19.20, Es t GFR (MDRD) Af Amer 19 L, Est GFR (MDRD) Non-Af 16 L, BUN/Creatinine Ratio 13.6, Glucose 97, Calcium 11.7 H 08/22/20 : Magnesium 1.5 L Current Medications Acetaminophen (Acetaminophen 325 Mg Tablet) 650 mg PO Q6H PRN PRN PRN Reason: Pain Score 1-10/Temp > 100.7 F Benztropine Mesylate (Benztropine 2 Mg Tablet) 4 mg PO BID [facility] Dexamethasone Sodium Phosphate (Dexamethasone 10 Mg/Ml Vial) 6 mg IV DAILY [facility] Enoxaparin Sodium (Enoxaparin 40 Mg/0.4 Ml Syringe) 40 mg SC BID [facility] Haloperidol (Haloperidol 5 Mg Tablet) 5 mg PO BID [facility] Sodium Chloride () 1,000 mls @ 200 mls/hr IV .Q5H [facility] Last Admin: 08/22/20 07:52 Dose: Not Given Documented by: Vancomycin IV Pharmacy to Dose (1 ea/ Sodium Chloride) 500 mls @ 250 mls/hr IV PRN PRN; Protocol PRN Reason: Rx to Dose Sodium Chloride () 250 mls @ 15 mls/hr IV .[id number] PRN PRN Reason: Saline Flush Magnesium Sulfate () 4 gm in 100 mls @ 25 mls/hr IV X1 ONE Stop: 08/22/20 10:12 Last Admin: 08/22/20 07:00 Dose: 25 mls/hr Documented by: Ondansetron HCl (Ondansetron 4 Mg/2 Ml Vial) 4 mg IV Q8H PRN PRN PRN Reason: NAUSEA/VOMITING Sodium Chloride (0.9% Saline Lock 10 Ml Syringe) 10 - 40 ml IV UD PRN PRN Reason: SALINE FLUSH Clinical Impression(s) from Imaging Studies Brain CT 08/21/20 19:35 IMPRESSION: 1. Normal CT brain. Electronically Signed: Nidhi Junior at 20:39 EDT Tel , Service support , Chest X-Ray 08/21/20 20:20 IMPRESSION: 1. Mediastinal lymphadenopathy, refer to definitive imaging.. 2. Questionable early pneumonia bilaterally. Electronically Signed: Nidhi Junior, at 20:46 EDT Tel , Service support , Assessment/Plan Active and Suspected Problems (Last Reviewed 08/21/20 @ 22:[address] Rajiv Marin, DO) Hypercalcemia (Acute) Acute kidney injury (Acute) Metabolic encephalopathy (Acute) Sepsis (Acute) Neurological deficit present (Acute) RECOMMENDATIONS: 1. Aggressive fluid resuscitation 2. Reinitiate baseline psychiatric medications 3. Hold on convalescent serum, antiretroviral therapy 4. Consider initiation of anticoagulation 5. No plans to proceed with bronchoscopy given acute COVID-19 infection IMPRESSIONS: 1. Metabolic encephalopathy secondary to hypercalcemia Patient with recurrent hypercalcemia leading to change in mental status. Patient does have mediastinal lymphadenopathy noted on CT scan 1 month ago. Patient has responded well to fluids in the past. Would not recommend any bisphosphonates or calcitriol at this time. Patient does appear to be improving. Patient's work-up for sarcoidosis versus lymphoma versus multiple myeloma can be deferred for now given his acute infection with COVID-19. Patient's mentation appears to be improving, so reinitiation of baseline psych medications is likely prudent. 2. Acute kidney injury Clinical suspicion for prerenal etiology secondary to fever and decreased p.o. intake. Patient is receiving aggressive hydration. Continue to monitor renal function. No indication for renal replacement therapy at this time. Hold on consultation for nephrology. 3. Severe sepsis secondary to COVID-19 Patient with significant fever on presentation. Patient does have some infiltrates on chest x-ray. Reasonable to treat with empiric antibiotics, but patient is not having significant respiratory complaints at this time. Treatment with Decadron and anticoagulation are likely sufficient. Do not believe patient is a candidate for Remdesivir or convalescent serum given his relative stable status on room air. Infectious disease has been consulted, but will likely not see patient over the weekend. Patient does not appear to have any risk factors for MRSA or Pseudomonas, so we will discontinue vancomycin. 4. Mediastinal lymphadenopathy Multiple possible diagnoses for mediastinal lymphadenopathy including acute infectious etiology, sarcoidosis, lymphoma and multiple myeloma. Patient would likely benefit from an endobronchial ultrasound, but this would not be completed during an acute COVID-19 infection. Could send SPEP and UPEP studies given renal failure. Defer to hospitalist. 5. Schizoaffective disorder Complicates care, management, recovery and prognosis. Continue with baseline medications Inpatient E&M: [id number] Init Hosp L3
[2020-08-22] MEDS: dexAMETHasone 10 MG/ML Vial 6 MG IV (08:20)
[2020-08-22] MEDS: Haloperidol 5 MG Tablet PO ×2 (08:21→22:21)
[2020-08-22] MEDS: Enoxaparin 40 MG/0.4 ML Syringe SC ×2 (08:21→22:21)
[2020-08-22] MEDS: Benztropine 2 MG Tablet 4 MG PO ×2 (08:21→22:21)
[2020-08-22] MEDS: 0.9% Saline Lock 10 ML Syringe IV ×2 (08:22→11:58)
--- NOTE | 2020-08-22 10:25 | CM.UR ---
Participated in interdisciplinary rounds. + readmission for hypercalcemia. further work up in progress to determine cause. + covid. Case management will continue to follow patient for needs. Jaleel Rossi RN, CCM.
[2020-08-22] MEDS: Ceftriaxone 1 GM/50 ML BAG IV (10:54)
[2020-08-22 12:24] LABS: Anion Gap 9 (5-15); BUN 48 mg/dL (7-18); BUN/Creat Ratio 14.6 RATIO (10-20); Calcium,Total 10.9 mg/dL (8.5-10.1); Chloride 104 mmol/L (98-107); Creatinine, Serum 3.28 mg/dL (0.70-1.30); EST Glomerular Filtration Rate 21 mL/min (>60); Est Glom Filt Rate - Afr Amer 25 mL/min (>60); Estimated Creatinine Clearance 24.12 ml/min; Glucose 100 mg/dL (74-106); Potassium 3.3 mmol/L (3.5-5.1); Sodium Level 135 mmol/L (136-145)
[2020-08-23] VITALS (13 sets, daily range): BP systolic 134–149; BP diastolic 78–94; PULSE 67–96; RESP 16–26; TEMP 36.9–38.6; O2SAT 97–100
[2020-08-23] MEDS: 0.9% Normal Saline 1,000 ML 200 ML IV ×3 (02:24→11:11)
[2020-08-23 05:28] LABS: Absolute Lymphocyte Count 0.61 X10^3/uL (0.83-4.51); Absolute Neutrophil Count 3.9 X10^3/uL (2.0-7.7); Basophil# 0.01 X10^3/uL; Basophil% 0.2 % (0-1); Hematocrit 28.4 % (40-54); Hemoglobin 9.1 g/dL (13.0-16.5); Lymphocyte # 0.61 X10^3/ul (4.0); Lymphocyte % 12.3 % (19-41); Mean Corpuscular Hgb 30.6 pg (27.0-32.0); Mean Corpuscular Volume 95.6 fL (80-94); Mean Platelet Vol. 10.6 fl (6.2-12.0); Monocyte# 0.44 X10^3/uL; Monocyte% 8.9 % (0-10); NRBC Flagged by Analyzer 0 % (0-5); Neutrophil # 3.88 X10^3/uL (2.7-7.7); Neutrophil % 78.2 % (47-70); Platelet Count 207 K/mm3 (150-450); RBC Distribution Width CV 13.8 % (11.6-14.6); RBC Distribution Width SD 48.5 fl (35.1-43.9); Red Blood Count 2.97 M/mm3 (4.6-6.2)
--- NOTE | 2020-08-23 05:45 | NURSING ---
pt asking for tums for heartburn, order obtained from the hospitalist
[2020-08-23 05:52] LABS: ALB/GLOB Ratio 0.7 RATIO (0.9-2.4); AST(SGOT) 22 U/L (15-37); Alanine Aminotransfer ALT/SGPT 20 U/L (16-61); Albumin, Serum 2.7 g/dL (3.2-5.0); Alkaline Phosphatase 60 U/L (45-117); Anion Gap 5 (5-15); BUN 42 mg/dL (7-18); BUN/Creat Ratio 15.4 RATIO (10-20); Calcium,Total 9.3 mg/dL (8.5-10.1); Chloride 116 mmol/L (98-107); Creatinine, Serum 2.72 mg/dL (0.70-1.30); EST Glomerular Filtration Rate 26 mL/min (>60); Est Glom Filt Rate - Afr Amer 31 mL/min (>60); Estimated Creatinine Clearance 29.08 ml/min; Globulin 3.8 g/dL (2.2-4.2); Glucose 105 mg/dL (74-106); Potassium 3.7 mmol/L (3.5-5.1); Protein, Total 6.5 g/dL (6.4-8.2); Sodium Level 144 mmol/L (136-145)
--- NOTE | 2020-08-23 07:37 | PCM.PN.INT ---
Subjective: Patient did okay overnight. No acute issues were reported. Patient remains on room air and hemodynamically appropriate. Patient is not reporting any GI symptoms, headache or muscle cramping. General: Alert, Oriented x3, Cooperative, - - No scleral icterus or injection noted. HEENT: Atraumatic, PERRLA, EOMI, Normocephalic, - - Left facial droop noted. Oral: Moist Mucosa, No Gingival or Mucosal Lesions/ Ulcerations Neck: Supple, No JVD, No Nodes, Trachea Midline Lungs: Clear to auscultation, Normal air movement, No rhonchi, No wheeze, No rales, - - Symmetric expansion. No dullness to percussion. Cardiovascular: Regular rate, Regular Rhythm, Normal S1, Normal S2, No murmurs, No rub noted, No Gallop Abdomen: Bowel Sounds Present, Soft, Non Tender, Non-Distended Extremities: No clubbing, No cyanosis, No edema, Capillary Refill Less than 3 Seconds Skin: No rashes, No breakdown Musculoskeletal: No Tenderness to Palpation of Joints or Extremities Lymphatic: No Cervical, Supraclavicular, or Inguinal Adenopathy Neurological: - - No change from yesterday. Nonfocal exam except for facial droop Psych/Mental Status: Appropriate, Flat Affect Vital Signs Temp Pulse Resp BP Pulse Ox 37.3 C H 71 24 H 149/82 H 100 08/23/20 04:00 08/23/20 04:00 08/23/20 04:00 08/23/20 04:00 08/23/20 04:00 Oxygen Delivery Method Room Air Weight: 67 kg Body Mass Index (BMI) 21.2 Intake and Output for Last 24 Hours 08/21/20 08/22/20 08/23/20 23:59 23:59 23:59 Intake Total 5147 / 5147 2000 / 1999 Output Total 500 / 500 600 / 600 Balance 4647 / 4647 1400 / 1400 Labs (Last 48 Hours) 08/21/20 08/21/20 08/21/20 19:38 20:33 21:48 WBC RBC Hgb Hct MCV MCH MCHC RDW Std Deviation RDW Coeff of Madie Plt Count MPV Immature Gran % (Auto) Neut % (Auto) Lymph % (Auto) [place] % (Auto) Eos % (Auto) Baso % (Auto) Absolute Neuts (auto) Absolute Lymphs (auto) Nucleated RBC % PT 12.9 INR 1.0 APTT 24.8 Fibrinogen D-Dimer Quant (PE/DVT) Sodium Potassium Chloride Carbon Dioxide Anion Gap BUN Creatinine Estim Creat Clear Calc Est GFR (MDRD) Af Amer Est GFR (MDRD) Non-Af BUN/Creatinine Ratio Glucose Lactic Acid 0.7 Calcium Magnesium Total Bilirubin AST ALT Alkaline Phosphatase Lactate Dehydrogenase Total Protein Albumin Globulin Albumin/Globulin Ratio Procalcitonin Urine Color Yellow Urine Clarity Clear Urine pH 6.0 Ur Specific [place] 1.010 Urine Protein Negative Urine Glucose (UA) Normal Urine Ketones Negative Urine Occult Blood Negative Urine Nitrite Negative Urine Bilirubin Negative Urine Urobilinogen Normal Ur Leukocyte Esterase Negative Urine RBC 0 SEEN Urine WBC 0 SEEN Ur Squamous Epith Cells 0 SEEN Urine Bacteria 0 SEEN Urine Mucus 0 SEEN COVID-19 (MARYBETH) 08/21/20 08/22/20 08/22/20 21:55 02:30 02:30 WBC RBC Hgb Hct MCV MCH MCHC RDW Std Deviation RDW Coeff of Madie Plt Count MPV Immature Gran % (Auto) Neut % (Auto) Lymph % (Auto) [place] % (Auto) Eos % (Auto) Baso % (Auto) Absolute Neuts (auto) Absolute Lymphs (auto) Nucleated RBC % PT 13.5 INR 1.1 APTT Fibrinogen 442 D-Dimer Quant (PE/DVT) 1.22 H* Sodium Potassium Chloride Carbon Dioxide Anion Gap BUN Creatinine Estim Creat Clear Calc Est GFR (MDRD) Af Amer Est GFR (MDRD) Non-Af BUN/Creatinine Ratio Glucose Lactic Acid 0.7 Calcium Magnesium Total Bilirubin AST ALT Alkaline Phosphatase Lactate Dehydrogenase Total Protein Albumin Globulin Albumin/Globulin Ratio Procalcitonin Urine Color Urine Clarity Urine pH Ur Specific [place] Urine Protein Urine Glucose (UA) Urine Ketones Urine Occult Blood Urine Nitrite Urine Bilirubin Urine Urobilinogen Ur Leukocyte Esterase Urine RBC Urine WBC Ur Squamous Epith Cells Urine Bacteria Urine Mucus COVID-19 (MARYBETH) Detected 08/22/20 08/22/20 08/22/20 02:30 02:30 02:30 WBC 3.1 L RBC 3.13 L Hgb 9.7 L Hct 29.6 L MCV 94.6 H MCH 31.0 MCHC 32.8 RDW Std Deviation 45.9 H RDW Coeff of Madie 13.3 Plt Count 202 MPV 10.4 Immature Gran % (Auto) 0.300 Neut % (Auto) 60.2 Lymph % (Auto) 26.9 Summit % (Auto) 12.3 H Eos % (Auto) 0.0 Baso % (Auto) 0.3 Absolute Neuts (auto) 1.9 L Absolute Lymphs (auto) 0.83 Nucleated RBC % 0 PT INR APTT Fibrinogen D-Dimer Quant (PE/DVT) Sodium Potassium Chloride Carbon Dioxide Anion Gap BUN Creatinine Estim Creat Clear Calc Est GFR (MDRD) Af Amer Est GFR (MDRD) Non-Af BUN/Creatinine Ratio Glucose Lactic Acid Calcium Magnesium Total Bilirubin AST ALT Alkaline Phosphatase Lactate Dehydrogenase 208 Total Protein Albumin Globulin Albumin/Globulin Ratio Procalcitonin 0.47 H Urine Color Urine Clarity Urine pH Ur Specific [place] Urine Protein Urine Glucose (UA) Urine Ketones Urine Occult Blood Urine Nitrite Urine Bilirubin Urine Urobilinogen Ur Leukocyte Esterase Urine RBC Urine WBC Ur Squamous Epith Cells Urine Bacteria Urine Mucus COVID-19 (MARYBETH) 08/22/20 08/22/20 08/22/20 02:30 11:55 Unknown WBC RBC Hgb Hct MCV MCH MCHC RDW Std Deviation RDW Coeff of Madie Plt Count MPV Immature Gran % (Auto) Neut % (Auto) Lymph % (Auto) [place] % (Auto) Eos % (Auto) Baso % (Auto) Absolute Neuts (auto) Absolute Lymphs (auto) Nucleated RBC % PT INR APTT Fibrinogen D-Dimer Quant (PE/DVT) Sodium 142 135 L Potassium 3.1 L 3.3 L Chloride 109 H 104 Carbon Dioxide 26.0 22.0 Anion Gap 7 9 BUN 56 H 48 H Creatinine 4.12 H 3.28 H Estim Creat Clear Calc 19.20 24.12 Est GFR (MDRD) Af Amer 19 L 25 L Est GFR (MDRD) Non-Af 16 L 21 L BUN/Creatinine Ratio 13.6 14.6 Glucose 97 100 Lactic Acid Calcium 11.7 H 10.9 H Magnesium 1.5 L Total Bilirubin AST ALT Alkaline Phosphatase Lactate Dehydrogenase Total Protein Albumin Globulin Albumin/Globulin Ratio Procalcitonin Urine Color Urine Clarity Urine pH Ur Specific [place] Urine Protein Urine Glucose (UA) Urine Ketones Urine Occult Blood Urine Nitrite Urine Bilirubin Urine Urobilinogen Ur Leukocyte Esterase Urine RBC Urine WBC Ur Squamous Epith Cells Urine Bacteria Urine Mucus COVID-19 (MARYBETH) 08/23/20 08/23/20 05:00 05:00 WBC 5.0 RBC 2.97 L Hgb 9.1 L Hct 28.4 L MCV 95.6 H MCH 30.6 MCHC 32.0 RDW Std Deviation 48.5 H RDW Coeff of Madie 13.8 Plt Count 207 MPV 10.6 Immature Gran % (Auto) 0.400 Neut % (Auto) 78.2 H Lymph % (Auto) 12.3 L [place] % (Auto) 8.9 Eos % (Auto) 0.0 Baso % (Auto) 0.2 Absolute Neuts (auto) 3.9 Absolute Lymphs (auto) 0.61 L Nucleated RBC % 0 PT INR APTT Fibrinogen D-Dimer Quant (PE/DVT) Sodium 144 Potassium 3.7 Chloride 116 H Carbon Dioxide 23.0 Anion Gap 5 BUN 42 H Creatinine 2.72 H Estim Creat Clear Calc 29.08 Est GFR (MDRD) Af Amer 31 L Est GFR (MDRD) Non-Af 26 L BUN/Creatinine Ratio 15.4 Glucose 105 Lactic Acid Calcium 9.3 Magnesium Total Bilirubin 0.20 AST 22 ALT 20 Alkaline Phosphatase 60 Lactate Dehydrogenase Total Protein 6.5 Albumin 2.7 L Globulin 3.8 Albumin/Globulin Ratio 0.7 L Procalcitonin Urine Color Urine Clarity Urine pH Ur Specific [place] Urine Protein Urine Glucose (UA) Urine Ketones Urine Occult Blood Urine Nitrite Urine Bilirubin Urine Urobilinogen Ur Leukocyte Esterase Urine RBC Urine WBC Ur Squamous Epith Cells Urine Bacteria Urine Mucus COVID-19 (MARYBETH) Microbiology 08/22/20 02:16 Mucosa - Nasopharyngeal - Final Medical Necessity - Tobacco Use Smoking Status: Light Smoker (<10/day) Tobacco Use: Cigarettes Assessment/Plan All Active Problems (Last Reviewed 08/21/20 @ 22:[address] Rajiv Marin, DO) Hypercalcemia (Acute) Neurological deficit present (Resolved) Acute kidney injury (Acute) Metabolic encephalopathy (Acute) Sepsis (Acute) Neurological deficit present (Acute) RECOMMENDATIONS: 1. Continue aggressive fluid resuscitation 2. Continue baseline psychiatric medications 3. Hold on convalescent serum, antiretroviral therapy 4. Consider initiation of p.o. anticoagulation for 14 days 5. No plans to proceed with bronchoscopy given acute COVID-19 infection 6. Likely okay to discharge from pulmonary/critical care perspective 7. Repeat CT scan in 2 to 3 months with bronchoscopy if indicated 8. Initiate aggressive oral hydration regimen on discharge to avoid future hypercalcemia 9. Currently hemodynamically stable on room air. Will sign off from a critical care perspective IMPRESSIONS: 1. Metabolic encephalopathy secondary to hypercalcemia Patient with recurrent hypercalcemia leading to change in mental status. Patient does have mediastinal lymphadenopathy noted on CT scan 1 month ago. Patient has responded well to fluids. Would not recommend any bisphosphonates or calcitriol at this time. Patient does appear to be improving. Patient's work-up for sarcoidosis versus lymphoma versus multiple myeloma can be deferred for now given his acute infection with COVID-19. Patient's mentation appears to be improving despite reinitiation of baseline psych meds. 2. Acute kidney injury Clinical suspicion for prerenal etiology secondary to fever and decreased p.o. intake. Patient is receiving aggressive hydration. Continue to monitor renal function. No indication for renal replacement therapy at this time. Hold on consultation for nephrology. 3. Severe sepsis secondary to COVID-19 Patient with significant fever on presentation. Patient does have some infiltrates on chest x-ray. Okay to discontinue antibiotics from my perspective given lack of fever and leukocytosis. Treatment with Decadron and anticoagulation are likely sufficient. Do not believe patient is a candidate for Remdesivir or convalescent serum given his relative stable status on room air. Infectious disease has been consulted, but will likely not see patient over the weekend. Patient does not appear to have any risk factors for MRSA or Pseudomonas, so we will discontinue vancomycin. 4. Mediastinal lymphadenopathy Multiple possible diagnoses for mediastinal lymphadenopathy including acute infectious etiology, sarcoidosis, lymphoma and multiple myeloma. Patient would likely benefit from an endobronchial ultrasound, but this would not be completed during an acute COVID-19 infection. Could send SPEP and UPEP studies given renal failure. Defer to hospitalist. Patient would need a repeat CT scan in 2 to 3 months to see if lymphadenopathy persists. If this remains present, an endobronchial ultrasound may be diagnostic. 5. Schizoaffective disorder Complicates care, management, recovery and prognosis. Continue with baseline medications Inpatient E&M: [id number] Subs Hosp L2
[2020-08-23 08:16] LABS: Magnesium 2.1 mg/dL (1.6-2.6)
[2020-08-23] MEDS: Ceftriaxone 1 GM/50 ML BAG IV (10:30)
[2020-08-23] MEDS: 0.9% Saline Lock 10 ML Syringe IV (10:33)
[2020-08-23] MEDS: dexAMETHasone 10 MG/ML Vial 6 MG IV (10:33)
[2020-08-23] MEDS: Benztropine 2 MG Tablet 4 MG PO ×2 (10:35→21:04)
[2020-08-23] MEDS: Haloperidol 5 MG Tablet PO ×2 (10:35→21:04)
[2020-08-23] MEDS: Enoxaparin 60 MG/0.6 ML Syringe SC ×2 (10:36→21:04)
[2020-08-23] MEDS: Acetaminophen 325 MG Tablet 650 MG PO (10:40)
--- NOTE | 2020-08-23 11:54 | PCM.PN.HOSP ---
Patient Problems: Active and Suspected Problems (Last Reviewed 08/21/20 @ 22:[address] Rajiv Marin, DO) Hypercalcemia (Acute) Acute kidney injury (Acute) Metabolic encephalopathy (Acute) Sepsis (Acute) Neurological deficit present (Acute) Reason for Visit: Follow-up on hypercalcemia/Acute COVID-19 Subjective: Patient was seen and examined. He denied any new complaint. Patient is having low-grade fevers. Vitals remained stable. Not on oxygen. Resp panel is negative. Blood cultures are pending Objective: Physical exam: General: Alert, No apparent distress HEENT: Atraumatic, Normocephalic Oral: Moist Mucosa, No Gingival or Mucosal Lesions/ Ulcerations Neck: No Nodes, Thyroid Normal Size and Texture Lungs: Clear to auscultation, Normal air movement, No rhonchi, No wheeze, No rales Cardiovascular: Regular rate, Regular Rhythm, Normal S1, Normal S2, No murmurs Abdomen: Bowel Sounds Present, Soft, Non Tender, Non-Distended, No Hepato-splenomegaly Extremities: No edema, No Calf Tenderness Skin: No rashes, No breakdown Musculoskeletal: No Tenderness to Palpation of Joints or Extremities, No Muscle Wasting Neurological: Cranial nerves II-XII grossly intact, Motor Exam 5/5 strength throughout, Coordination normal Psych/Mental Status: Appropriate, Anxious Vitals/I&O's: Vital Signs Temp Pulse Resp BP Pulse Ox 101.4 F H 78 26 H 145/85 H 100 08/23/20 10:00 08/23/20 10:00 08/23/20 10:00 08/23/20 10:00 08/23/20 10:00 Oxygen Delivery Method Room Air Weight: 67 kg Body Mass Index (BMI) 21.2 Intake and Output for Last 24 Hours 08/21/20 08/22/20 08/23/20 23:59 23:59 23:59 Intake Total 5147 / 5147 2833.33 / 2833.33 Output Total 500 / 500 600 / 600 Balance 4647 / 4647 2233.33 / 2233.33 Microbiology Past 72 Hours 08/22/20 02:16 Mucosa - Nasopharyngeal - Final Laboratory Results 08/22/20 11:55: Sodium 135 L, Potassium 3.3 L, Chloride 104, Carbon Dioxide 22.0, Anion Gap 9, BUN 48 H, Creatinine 3.28 H, Estim Creat Clear Calc 24.12, Est GFR (MDRD) Af Amer 25 L, Est GFR (MDRD) Non-Af 21 L, BUN/Creatinine Ratio 14.6, Glucose 100, Calcium 10.9 H 08/23/20 05:00: WBC 5.0, RBC 2.97 L, Hgb 9.1 L, Hct 28.4 L, MCV 95.6 H, MCH 30.6, MCHC 32.0, RDW Std Deviation 48.5 H, RDW Coeff of Madie 13.8, Plt Count 207, MPV 10.6, Immature Gran % (Auto) 0.400, Neut % (Auto) 78.2 H, Lymph % (Auto) 12.3 L, Martin % (Auto) 8.9, Eos % (Auto) 0.0, Baso % (Auto) 0.2, Absolute Neuts (auto) 3.9, Absolute Lymphs (auto) 0.61 L, Nucleated RBC % 0 08/23/20 05:00: Sodium 144, Potassium 3.7, Chloride 116 H, Carbon Dioxide 23.0, Anion Gap 5, BUN 42 H, Creatinine 2.72 H, Estim Creat Clear Calc 29.08, Est GFR (MDRD) Af Amer 31 L, Est GFR (MDRD) Non-Af 26 L, BUN/Creatinine Ratio 15.4, Glucose 105, Calcium 9.3, Total Bilirubin 0.20, AST 22, ALT 20, Alkaline Phosphatase 60, Total Protein 6.5, Albumin 2.7 L, Globulin 3.8, Albumin/Globulin Ratio 0.7 L 08/23/20 05:00: Magnesium 2.1 08/23/20 05:00: Vit D 1,25-Dihydroxy Pending Current Medications Acetaminophen (Acetaminophen 325 Mg Tablet) 650 mg PO Q6H PRN PRN PRN Reason: Pain Score 1-10/Temp > 100.7 F Last Admin: 08/23/20 10:40 Dose: 650 mg Documented by: Benztropine Mesylate (Benztropine 2 Mg Tablet) 4 mg PO BID [facility] Last Admin: 08/23/20 10:35 Dose: 4 mg Documented by: Calcium Carbonate (Calcium Carbonate 500 Mg Tablet) 500 mg PO Q4H PRN PRN PRN Reason: HEARTBURN Dexamethasone Sodium Phosphate (Dexamethasone 10 Mg/Ml Vial) 6 mg IV DAILY [facility] Last Admin: 08/23/20 10:33 Dose: 6 mg Documented by: Enoxaparin Sodium (Enoxaparin 60 Mg/0.6 Ml Syringe) 60 mg SC BID [facility] Last Admin: 08/23/20 10:36 Dose: 60 mg Documented by: Haloperidol (Haloperidol 5 Mg Tablet) 5 mg PO BID [facility] Last Admin: 08/23/20 10:35 Dose: 5 mg Documented by: Sodium Chloride () 1,000 mls @ 200 mls/hr IV .Q5H [facility] Last Admin: 08/23/20 11:11 Dose: 200 mls/hr Documented by: Sodium Chloride () 250 mls @ 15 mls/hr IV .[id number] PRN PRN Reason: Saline Flush Ceftriaxone Sodium (Rocephin) 1 gm in 50 mls @ 100 mls/hr IV Q24 [facility] Last Admin: 08/23/20 10:30 Dose: 100 mls/hr Documented by: Ondansetron HCl (Ondansetron 4 Mg/2 Ml Vial) 4 mg IV Q8H PRN PRN PRN Reason: NAUSEA/VOMITING Sodium Chloride (0.9% Saline Lock 10 Ml Syringe) 10 - 40 ml IV UD PRN PRN Reason: SALINE FLUSH Last Admin: 08/23/20 10:33 Dose: 10 ml Documented by: STROKE Vital Signs/Narrative: Vital Signs Temp Pulse Resp BP Pulse Ox 08/23/20 10:00 101.4 F H 78 26 H 145/85 H 100 08/23/20 08:04 76 Medical Necessity - Tobacco Use Smoking Status: Light Smoker (<10/day) Tobacco Use: Cigarettes Assessment/Plan All Active Problems (Last Reviewed 08/21/20 @ 22:[address] Rajiv Marin, DO) Hypercalcemia (Acute) Neurological deficit present (Resolved) Acute kidney injury (Acute) Metabolic encephalopathy (Acute) Sepsis (Acute) Neurological deficit present (Acute) 54-year-old male with past medical history of schizophrenia, was previously admitted on 07/07/20 with hypercalcemia and acute kidney injury that responded to IV fluids. CT scan had shown bilateral hilar lymphadenopathy. Patient did not follow-up for work-up of this hypercalcemia. He was admitted on 08/06/20 with headaches, confusion and trouble ambulating and found to have hypercalcemia of 13 and COVID-19 PCR was positive. 1. Acute metabolic encephalopathy secondary to hypercalcemia, resolved, Continue to monitor 2. Hypercalcemia, recurrent, unclear etiologies for now, likely secondary to sarcoidosis versus lymphoma versus multiple myeloma Patient's recent CT scan of the chest showed bilateral hilar lymphadenopathy. Chest x-ray on 08/21/20 showed mediastinal lymphadenopathy, ?early bilateral pneumonia Corrected calcium today is 10.34, down from 12.74 on admission, improving with IV fluids Previous PTH on 07/08/20 was 14.9, vitamin D levels are pending, pulmonology consulted -for bronchoscopy in the outpatient after acute COVID-19 infection is resolved. Not volume overloaded so no indication for Lasix now No indication for any calcitonin or bisphosphonates at this time especially with current YADI Decrease IV fluids to 125 mls/hr, repeat blood work in a.m. 2. Hypokalemia, hypomagnesemia, replaced, recheck in a.m. 3. Acute kidney injury secondary to #2, Creatinine has been improving; from 4.12 to 2.72 We will continue with IV fluids, would hold off on nephrology consult for now. Repeat blood work in a.m. 4. Sepsis secondary to COVID-19 infection, admitting chest x-ray shows questionable early pneumonia, Blood cultures are pending. Will repeat CXR, if negative will discontinue antibiotics Currently on ceftriaxone 5. Elevated d-dimer, 1.22, in the setting of acute COVID-19 infection Cannot rule out acute PE CTA because of acute kidney injury. Cannot do a VQ scan over the weekend Would start patient on therapeutic Lovenox 6. DVT prophylaxis with enoxaparin Inpatient E&M: [id number] [facility] Hosp L3
--- NOTE | 2020-08-23 12:03 | RAD_ITS ---
STUDY: X-RAY CHEST REASON FOR EXAM: Male, 54 years old. HX COVID 19, ABNORMAL CXR TECHNIQUE: AP COMPARISON: 08/21/2020 chest x-ray, 07/08/[address] FINDINGS: EKG leads project over the chest. Worsening bilateral airspace disease involving the right upper, left mid and bilateral lower lung zones worse since the prior study. There is no demonstrated pleural abnormality. Normal size heart. There appears to be bilateral hilar adenopathy. Normal visualized pulmonary arteries. Normal visualized aortic arch and descending thoracic aorta. No acute bony process. There is no demonstrated abnormality of the visualized soft tissue structures of the upper abdomen. RAD/Chest 1 View (Portable) IMPRESSION: Multilobar pulmonary infiltrates, worse. Hilar adenopathy better seen on prior CT. Electronically Signed: Livan Bennett MD ([place]) at 14:08 EDT , Service support ,
[2020-08-23] MEDS: 0.9% Normal Saline 1,000 ML 125 ML IV (18:43)
[2020-08-24] VITALS (7 sets, daily range): BP systolic 136–149; BP diastolic 85–95; PULSE 62–81; RESP 18–20; TEMP 36.6–38.6; O2SAT 97–100
[2020-08-24] MEDS: Acetaminophen 325 MG Tablet 650 MG PO (01:33)
[2020-08-24] MEDS: 0.9% Normal Saline 1,000 ML 125 ML IV ×2 (02:47→10:01)
[2020-08-24 03:33] LABS: Absolute Lymphocyte Count 0.53 X10^3/uL (0.83-4.51); Absolute Neutrophil Count 5.8 X10^3/uL (2.0-7.7); Hematocrit 27.4 % (40-54); Hemoglobin 8.8 g/dL (13.0-16.5); Lymphocyte # 0.53 X10^3/ul (4.0); Lymphocyte % 7.9 % (19-41); Mean Corp Hgb Conc 32.1 g/dL (32-36); Mean Corpuscular Hgb 30.7 pg (27.0-32.0); Mean Corpuscular Volume 95.5 fL (80-94); Mean Platelet Vol. 10.7 fl (6.2-12.0); Monocyte# 0.37 X10^3/uL; Monocyte% 5.5 % (0-10); NRBC Flagged by Analyzer 0 % (0-5); Neutrophil # 5.76 X10^3/uL (2.7-7.7); Neutrophil % 86.2 % (47-70); POSITIVE DIFFERENTIAL YES; Platelet Count 227 K/mm3 (150-450); RBC Distribution Width CV 14.2 % (11.6-14.6); RBC Distribution Width SD 49.7 fl (35.1-43.9); Red Blood Count 2.87 M/mm3 (4.6-6.2); White Blood Count 6.7 K/mm3 (4.4-11.0)
[2020-08-24 04:01] LABS: ALB/GLOB Ratio 0.7 RATIO (0.9-2.4); AST(SGOT) 18 U/L (15-37); Alanine Aminotransfer ALT/SGPT 18 U/L (16-61); Albumin, Serum 2.5 g/dL (3.2-5.0); Alkaline Phosphatase 53 U/L (45-117); Anion Gap 6 (5-15); BUN 38 mg/dL (7-18); BUN/Creat Ratio 17.6 RATIO (10-20); Calcium,Total 8.4 mg/dL (8.5-10.1); Chloride 118 mmol/L (98-107); Creatinine, Serum 2.16 mg/dL (0.70-1.30); EST Glomerular Filtration Rate 34 mL/min (>60); Est Glom Filt Rate - Afr Amer 41 mL/min (>60); Estimated Creatinine Clearance 36.62 ml/min; Globulin 3.6 g/dL (2.2-4.2); Glucose 115 mg/dL (74-106); Magnesium 1.6 mg/dL (1.6-2.6); Potassium 3.8 mmol/L (3.5-5.1); Protein, Total 6.1 g/dL (6.4-8.2); Sodium Level 143 mmol/L (136-145)
[2020-08-24 04:24] LABS: Differential Indicated SCAN CRITERIA MET
[2020-08-24 04:48] LABS: Differential Comment SCANNED
--- NOTE | 2020-08-24 07:57 | PN_ITS ---
Patient Problems: Active and Suspected Problems (Last Reviewed 08/21/20 @ 22:[address] Rajiv Marin, DO) Hypercalcemia (Acute) Acute kidney injury (Acute) Metabolic encephalopathy (Acute) Sepsis (Acute) Neurological deficit present (Acute) Reason for Visit: Follow-up COVID-19 pneumonia Objective: Seen and examined. Patient does not have shortness of breath, chest pressure or pain. Had mild headache which is resolved. Respiratory 19, pulse ox 98% on room air. Patient is smokes 3 cigarettes/day since age of 34. Patient had fever 101.4 Fahrenheit in early interventionist today. Chest x-ray reported as hilar adenopathy but seen on prior CT scan. CT scan of July 2020 shows bilateral hilar adenopathy and mediastinal adenopathy. Physical exam General: Alert, Oriented x3, Cooperative HEENT: Atraumatic, PERRLA, EOMI, Normocephalic Oral: No Gingival or Mucosal Lesions/ Ulcerations Neck: Supple, No JVD, Negative Carotid Bruits Lungs: Air entry diminished in bilateral lung bases. Bilateral fine coarse crepitation present. Cardiovascular: Regular rate, Regular Rhythm, Normal S1, Normal S2, No murmurs Abdomen: Bowel Sounds Present, Soft, Non Tender, Non-Distended : No renal angle tenderness. No suprapubic tenderness. Extremities: No edema, Capillary Refill Less than 3 Seconds Skin: No rashes, No breakdown Musculoskeletal: No Tenderness to Palpation of Joints or Extremities Neurological: Cranial nerves II-XII grossly intact, Deep Tendon Reflexes 2+/4 and Symmetrical, Neuro grossly intact Psych/Mental Status: Normal Affect, Appropriate. Vitals/I&O's: Vital Signs Temp Pulse Resp BP Pulse Ox 100.3 F H 62 18 149/95 H 97 08/24/20 02:47 08/24/20 04:00 08/24/20 02:47 08/24/20 02:47 08/24/20 02:47 Oxygen Delivery Method Room Air Weight: 147 lb 11.355 oz Body Mass Index (BMI) 21.2 Intake and Output for Last 24 Hours 08/22/20 08/23/20 08/24/20 23:59 23:59 23:59 Intake Total 5147 / 5147 4123.58 / 4123.58 1000 / 1000 Output Total 500 / 500 2099 / 2100 Balance 4647 / 4647 58 / 58 1000 / 1000 Microbiology Past 72 Hours 08/22/20 02:16 Mucosa - Nasopharyngeal - Final Laboratory Results 08/23/20 05:00: Magnesium 2.1 08/23/20 05:00: Vit D 1,25-Dihydroxy Pending 08/24/20 03:25: WBC 6.7, RBC 2.87 L, Hgb 8.8 L, Hct 27.4 L, MCV 95.5 H, MCH 30.7, MCHC 32.1, RDW Std Deviation 49.7 H, RDW Coeff of Madie 14.2, Plt Count 227, MPV 10.7, Immature Gran % (Auto) 0.400, Neut % (Auto) 86.2 H, Lymph % (Auto) 7.9 L, [place] % (Auto) 5.5, Eos % (Auto) 0.0, Baso % (Auto) 0.0, Absolute Neuts (auto) 5.8, Absolute Lymphs (auto) 0.53 L, Nucleated RBC % 0, Differential Comment SCANNED 08/24/20 03:25: Sodium 143, Potassium 3.8, Chloride 118 H, Carbon Dioxide 19.0 L , Anion Gap 6, BUN 38 H, Creatinine 2.16 H, Estim Creat Clear Calc 36.62, Est GFR (MDRD) Af Amer 41 L, Est GFR (MDRD) Non-Af 34 L, BUN/Creatinine Ratio 17.6, Glucose 115 H, Calcium 8.4 L, Magnesium 1.6, Total Bilirubin 0.20, AST 18, ALT 18, Alkaline Phosphatase 53, Total Protein 6.1 L, Albumin 2.5 L, Globulin 3.6, Albumin/Globulin Ratio 0.7 L Current Medications Acetaminophen (Acetaminophen 325 Mg Tablet) 650 mg PO Q6H PRN PRN PRN Reason: Pain Score 1-10/Temp > 100.7 F Last Admin: 08/24/20 01:33 Dose: 650 mg Documented by: Benztropine Mesylate (Benztropine 2 Mg Tablet) 4 mg PO BID [facility] Last Admin: 08/23/20 21:04 Dose: 4 mg Documented by: Calcium Carbonate (Calcium Carbonate 500 Mg Tablet) 500 mg PO Q4H PRN PRN PRN Reason: HEARTBURN Dexamethasone Sodium Phosphate (Dexamethasone 10 Mg/Ml Vial) 6 mg IV DAILY [facility] Last Admin: 08/23/20 10:33 Dose: 6 mg Documented by: Enoxaparin Sodium (Enoxaparin 60 Mg/0.6 Ml Syringe) 60 mg SC BID [facility] Last Admin: 08/23/20 21:04 Dose: 60 mg Documented by: Haloperidol (Haloperidol 5 Mg Tablet) 5 mg PO BID [facility] Last Admin: 08/23/20 21:04 Dose: 5 mg Documented by: Sodium Chloride () 1,000 mls @ 125 mls/hr IV .Q8H [facility] Last Admin: 08/24/20 02:47 Dose: 125 mls/hr Documented by: Sodium Chloride () 250 mls @ 15 mls/hr IV .[id number] PRN PRN Reason: Saline Flush Last Infusion: 08/23/20 18:44 Dose: 0 mls/hr Documented by: Ceftriaxone Sodium (Rocephin) 1 gm in 50 mls @ 100 mls/hr IV Q24 [facility] Last Infusion: 08/23/20 11:05 Dose: Infused Documented by: Ondansetron HCl (Ondansetron 4 Mg/2 Ml Vial) 4 mg IV Q8H PRN PRN PRN Reason: NAUSEA/VOMITING Sodium Chloride (0.9% Saline Lock 10 Ml Syringe) 10 - 40 ml IV UD PRN PRN Reason: SALINE FLUSH Last Admin: 08/23/20 10:33 Dose: 10 ml Documented by: STROKE Vital Signs/Narrative: Vital Signs Pulse 08/24/20 04:00 62 Medical Necessity - Tobacco Use Smoking Status: Light Smoker (<10/day) Tobacco Use: Cigarettes Assessment/Plan All Active Problems (Last Reviewed 08/21/20 @ 22:[address] Rajiv Marin, DO) Hypercalcemia (Acute) Neurological deficit present (Resolved) Acute kidney injury (Acute) Metabolic encephalopathy (Acute) Sepsis (Acute) Neurological deficit present (Acute) 54-year-old male with past medical history of schizophrenia, was previously admitted on 07/07/20 with hypercalcemia and acute kidney injury that responded to IV fluids. CT scan had shown bilateral hilar lymphadenopathy. Patient did not follow-up for work-up of this hypercalcemia. He was admitted on 08/06/20 with headaches, confusion and trouble ambulating and found to have hypercalcemia of 13 and COVID-19 PCR was positive. 1. Acute metabolic encephalopathy secondary to hypercalcemia, resolved, 2. Hypercalcemia, recurrent, unclear etiologies for now, likely secondary to sarcoidosis versus lymphoma versus multiple myeloma from bilateral hilar mediastinal lymphadenopathy. Chest CT scan from July 2020 showed that. Chest x-ray on 08/21/20 showed mediastinal lymphadenopathy, ?early bilateral pneumonia Previous PTH on 07/08/20 was 14.9, vitamin D levels are pending, pulmonology consult was done. Follow-up CT scan in 3 months and bronchoscopy in the outpatient after acute COVID-19 infection is resolved. No indication for any calcitonin or bisphosphonates at this time especially with current YADI 2. Hypokalemia, hypomagnesemia, replaced, recheck in a.m. 3. Acute kidney injury secondary to #2, Creatinine has been improving; from 4.12 to 2.16 Continue IV fluid with rate decreased to 75 mils per hour. 4. Sepsis secondary to COVID-19 infection, admitting chest x-ray shows questionable early pneumonia, Blood cultures are negative for more than 48 hours. Patient still spiked temperature 100.4 today. Currently on ceftriaxone 5. Elevated d-dimer, 1.22, in the setting of acute COVID-19 infection Patient could not have CTPA secondary to acute kidney injury therefore on therapeutic Lovenox. 6. DVT prophylaxis with enoxaparin Total time of the visit including total time spent in counseling or coordination of care, (more than 50% of the total time, spent in obtaining medical information from nurses and other ancillary care providers), it consultant and clinical update to the patient's brother Mr. Leo zamora [phone], review of labs and imaging is 30 minutes. Inpatient E&M: [id number] [facility] H[facility] L3
[2020-08-24] MEDS: Haloperidol 5 MG Tablet PO (08:28)
[2020-08-24] MEDS: Benztropine 2 MG Tablet 4 MG PO (08:28)
[2020-08-24] MEDS: dexAMETHasone 10 MG/ML Vial 6 MG IV (08:28)
[2020-08-24] MEDS: Enoxaparin 60 MG/0.6 ML Syringe SC (08:32)
[2020-08-24] MEDS: Ceftriaxone 1 GM/50 ML BAG IV (10:02)
--- NOTE | 2020-08-24 15:54 | PCM.HP.ID ---
Problem List (1) COVID-19 Status: Acute Reason for Consult: covid Consulted by: Dr. Smith History of Present Illness: The patient is a 54 year old M with psych disorder, presented with one week of confusion, not feeling well. Found to have YADI, high fever, hypercalcemia, covid (+). Started on ceftriaxone, admitted to icu. Now out of icu, feeling fine, no complaints. Full ROS performed and neg except as noted above. - Medical History Past Medical History (Chronic Problems): Chronic Problems (Last Reviewed 08/21/20 @ 22:[address] Rajiv Marin, DO) Schizoaffective disorder (Chronic) Lung nodule, multiple (Chronic) Mediastinal lymphadenopathy (Chronic) Allergies/Adverse Reactions: Allergies No Known Allergies Allergy (Verified 07/07/20 17:30) Home Medications: Ambulatory Orders Medication Instructions Recorded Benztropine [Cogentin] 4 mg PO BID 07/07/20 Haloperidol [Haldol] 5 mg PO BID 07/07/20 l-Mefol/A-Cyst/Meb12/Algal Oil 1 ea PO DAILY 07/07/20 [Cerefolin Nac Caplet] Apixaban [Eliquis] 5 mg PO BID #28 tab.ds.pk 08/24/20 Dexamethasone [Decadron] 6 mg PO DAILY 10 Days #10 tab 08/24/20 - Social History Tobacco Use: non-smoker Vital Signs Temp Pulse Resp BP Pulse Ox 97.8 F 70 18 136/85 H 98 08/24/20 14:00 08/24/20 15:00 08/24/20 14:00 08/24/20 14:00 08/24/20 14:00 Oxygen Delivery Method Room Air Weight: 67 kg Body Mass Index (BMI) 21.2 Microbiology Past 72 Hours 08/21/20 21:52 Blood Culture - Preliminary Blood Culture (Wb) - Right Hand No growth in 48 hours. 08/21/20 21:48 Blood Culture - Preliminary Blood Culture (Wb) - Anticubital Left No growth in 48 hours. 08/22/20 02:16 - Final Mucosa - Nasopharyngeal Laboratory Tests Past 24 Hrs 08/24/20 08/24/20 03:25 03:25 WBC 6.7 RBC 2.87 L Hgb 8.8 L Hct 27.4 L MCV 95.5 H MCH 30.7 MCHC 32.1 RDW Std Deviation 49.7 H RDW Coeff of Madie 14.2 Plt Count 227 MPV 10.7 Immature Gran % (Auto) 0.400 Neut % (Auto) 86.2 H Lymph % (Auto) 7.9 L [place] % (Auto) 5.5 Eos % (Auto) 0.0 Baso % (Auto) 0.0 Absolute Neuts (auto) 5.8 Absolute Lymphs (auto) 0.53 L Nucleated RBC % 0 Differential Comment SCANNED Sodium 143 Potassium 3.8 Chloride 118 H Carbon Dioxide 19.0 L Anion Gap 6 BUN 38 H Creatinine 2.16 H Estim Creat Clear Calc 36.62 Est GFR (MDRD) Af Amer 41 L Est GFR (MDRD) Non-Af 34 L BUN/Creatinine Ratio 17.6 Glucose 115 H Calcium 8.4 L Magnesium 1.6 Total Bilirubin 0.20 AST 18 ALT 18 Alkaline Phosphatase 53 Total Protein 6.1 L Albumin 2.5 L Globulin 3.6 Albumin/Globulin Ratio 0.7 L - Other Studies Radiology: [] reviewed Other Studies: [] Route of nutrition/ use of supplements: [] Nutritional Intake: [] IV Site: [] Goncalves Catheter: [] - Physical Exam General: Alert, Cooperative, No apparent distress HEENT: Atraumatic, PERRLA, EOMI Neck: Supple, No Nodes Lungs: Clear to auscultation, Normal air movement Cardiovascular: Regular rate, Regular Rhythm Abdomen: Soft, Non Tender, Non-Distended Extremities: No edema Skin: No rashes IV Site: Peripheral, without redness Musculoskeletal: No Tenderness to Palpation of Joints or Extremities Neurological: Cranial nerves II-XII grossly intact - Assessment/Plan Antibiotics: [] Assessment/Plan: [] Active and Suspected Problems (Last Reviewed 08/21/20 @ 22:[address] Rajiv Marin, DO) Hypercalcemia (Acute) Acute kidney injury (Acute) Metabolic encephalopathy (Acute) Sepsis (Acute) Neurological deficit present (Acute) covid - fever resolved, not hypoxic. YADI improved. Will stop steroids due to good oxygenation. Stop ceftriaxone, no evidence of bacterial infection. Ok for discharge from ID perspective. Thank you, will follow
--- NOTE | 2020-08-24 16:45 | DCINST_ITS ---
- Discharge Diagnoses Current Active Problems: Current Active and Chronic Problems (Last Reviewed 08/21/20 @ 22:[address] Rajiv Marin, DO) Hypercalcemia (Acute) Schizoaffective disorder (Chronic) Lung nodule, multiple (Chronic) Mediastinal lymphadenopathy (Chronic) Acute kidney injury (Acute) Metabolic encephalopathy (Acute) Sepsis (Acute) Neurological deficit present (Acute) COVID-19 (Acute) You will use the following diet at home:: Regular, Other - avoid calcium supplements, Tums Your food should be the consistency of: Regular Discharge Activity: May Not Drive - for 2 weeks Call your doctor if your incision/area has: Swelling at the incision site Call your doctor if you observe: Fever of 101 or Higher, Coldness, Increased Pain, Change in Color, Inability to urinate, Inability to have a bowel movement, Swelling in the ankles, Chest pain, Increased palpitations (irregular heartbeat), Calf discomfort, Uncontrolled pain Additional Instructions: Self quarantine for 1 week Allergies/Adverse Reactions: Allergies No Known Allergies Allergy (Verified 07/07/20 17:30) Medications to take at Discharge Benztropine [Cogentin] 4 mg PO BID 07/07/20 Haloperidol [Haldol] 5 mg PO BID 07/07/20 l-Mefol/A-Cyst/Meb12/Algal Oil [Cerefolin Nac Caplet] 1 ea PO DAILY 07/07/20 Apixaban [Eliquis] 5 mg PO BID #28 tab.ds.pk 08/24/20 The following prescriptions were given: Apixaban [Eliquis] 5 mg PO BID #28 tab.ds.pk Primary Care Physician: Jonny Matthews MD [Primary Care Provider] - Please follow up with your Primary Care Physician in: in 1-2 weeks Test Results: Test results from this visit will be discussed in further detail at your follow- up appointment, if applicable. Please Follow Up With: Rah Julian MD When: in 2 weeks Please Follow Up With: Chiki Castrejon MD When: in 3 weeks for hypercalcemia
--- NOTE | 2020-08-24 16:47 | PCM.DC.SUM ---
Discharge Date and Diagnosis - Problem List Patient Problems: Active and Suspected Problems (Last Reviewed 08/21/20 @ 22:[address] Rajiv Marin DO) Hypercalcemia (Acute) Acute kidney injury (Acute) Metabolic encephalopathy (Acute) Sepsis (Acute) Neurological deficit present (Acute) COVID-19 (Acute) Date of Admission: 08/21/20 Date of Discharge: 08/24/20 - Primary Discharge Diagnosis Acute Problems: Active Problems (Last Reviewed 08/21/20 @ 22:[address] Rajiv Marin DO) Hypercalcemia (Acute) Acute kidney injury (Acute) Metabolic encephalopathy (Acute) Sepsis (Acute) Neurological deficit present (Acute) COVID-19 (Acute) - Secondary Discharge Diagnosis Chronic Problems: Chronic Problems (Last Reviewed 08/21/20 @ 22:[address] Rajiv Marin DO) Schizoaffective disorder (Chronic) Lung nodule, multiple (Chronic) Mediastinal lymphadenopathy (Chronic) Hospital Course and Treatment Operations: None Summary of Care Provided: The patient is a 54-year-old male with past medical history of schizophrenia, was previously admitted on 07/07/20 with hypercalcemia and acute kidney injury that responded to IV fluids. CT scan had shown bilateral hilar lymphadenopathy. Patient did not follow-up for work-up of this hypercalcemia. He was admitted on 08/06/20 with headaches, confusion and trouble ambulating and found to have hypercalcemia of 13 and COVID-19 PCR was positive. 1. Acute metabolic encephalopathy secondary to hypercalcemia, resolved, 2. Hypercalcemia, recurrent, unclear etiologies for now, likely secondary to sarcoidosis versus lymphoma versus multiple myeloma from bilateral hilar mediastinal lymphadenopathy. Chest CT scan from July 2020 showed that. Advised not to take any calcium supplement. Follow-up with driver helper Dr. Nj. Chest x-ray on 08/21/20 showed mediastinal lymphadenopathy, ?early bilateral pneumonia Previous PTH on 07/08/20 was 14.9, vitamin D levels are pending, pulmonology consult was done. Follow-up CT scan in 3 months and bronchoscopy in the outpatient after acute COVID-19 infection is resolved. No indication for any calcitonin or bisphosphonates at this time especially with current YADI 2. Hypokalemia, hypomagnesemia, replaced, recheck in a.m. 3. Acute kidney injury secondary to #2, Creatinine has been improving; from 4.12 to 2.16 Continue IV fluid with rate decreased to 75 mils per hour. 4. Sepsis secondary to COVID-19 infection, admitting chest x-ray shows questionable early pneumonia, Blood cultures are negative for more than 48 hours. Seen by ID. Advised to discontinue antibiotic as patient was afebrile and not hypoxic. Advised to stop the steroid due to good oxygenation. No evidence of bacterial infection. Prescription for Eliquis 5 mg p.o. twice daily given for 2 weeks. 5. Elevated d-dimer, 1.22, in the setting of acute COVID-19 infection Patient could not have CTPA secondary to acute kidney injury therefore on therapeutic Lovenox. 6. DVT prophylaxis with enoxaparin Discharge medication reconciliation done. Discharge follow-up instructions completed. Discharge process discussed with the patient and all questions were answered to patient's satisfaction. Advised to follow-up with driver helper, continuous pickling line pickler helper, PCP discussed with PCP. Total time spent, exact 35 minutes on discharge meds reconciliation, examination, coordination of care with nurses and ancillary staff, review of imaging and blood test and discussion with the patient on follow-up instructions Patient Problems: Active and Suspected Problems (Last Reviewed 08/21/20 @ 22:[address] Rajiv Marin, DO) Hypercalcemia (Acute) Acute kidney injury (Acute) Metabolic encephalopathy (Acute) Sepsis (Acute) Neurological deficit present (Acute) COVID-19 (Acute) Objective: PLEASE, see progress note of same day of discharge. - Physical Exam Vitals/I&O's: Vital Signs Temp Pulse Resp BP Pulse Ox 97.8 F 70 18 136/85 H 98 08/24/20 14:00 08/24/20 15:00 08/24/20 14:00 08/24/20 14:00 08/24/20 14:00 Oxygen Delivery Method Room Air Weight: 147 lb 11.355 oz Body Mass Index (BMI) 21.2 Intake and Output for Last 24 Hours 08/22/20 08/23/20 08/24/20 23:59 23:59 23:59 Intake Total 5147 / 5147 4123.58 / 4123.58 2414.58 / 2414.58 Output Total 500 / 500 2100 / 2100 Balance 4647 / 4647 2023.58 / 2022.58 2414.58 / 2414.58 Microbiology Past 72 Hours 10/16/20 21:52 Blood Culture (Wb) - Right Hand Blood Culture - Preliminary No growth in 48 hours. 08/21/20 21:48 Blood Culture (Wb) - Anticubital Left Blood Culture - Preliminary No growth in 48 hours. 08/22/20 02:16 Mucosa - Nasopharyngeal - Final Laboratory Results 08/24/20 03:25: WBC 6.7, RBC 2.87 L, Hgb 8.8 L, Hct 27.4 L, MCV 95.5 H, MCH 30.7, MCHC 32.1, RDW Std Deviation 49.7 H, RDW Coeff of Madie 14.2, Plt Count 227, MPV 10.7, Immature Gran % (Auto) 0.400, Neut % (Auto) 86.2 H, Lymph % (Auto) 7.9 L, [place] % (Auto) 5.5, Eos % (Auto) 0.0, Baso % (Auto) 0.0, Absolute Neuts (auto) 5.8, Absolute Lymphs (auto) 0.53 L, Nucleated RBC % 0, Differential Comment SCANNED 08/24/20 03:25: Sodium 143, Potassium 3.8, Chloride 118 H, Carbon Dioxide 19.0 L, Anion Gap 6, BUN 38 H, Creatinine 2.16 H, Estim Creat Clear Calc 36.62, Est GFR (MDRD) Af Amer 41 L, Est GFR (MDRD) Non-Af 34 L, BUN/Creatinine Ratio 17.6, Glucose 115 H, Calcium 8.4 L, Magnesium 1.6, Total Bilirubin 0.20, AST 18, ALT 18, Alkaline Phosphatase 53, Total Protein 6.1 L, Albumin 2.5 L, Globulin 3.6, Albumin/Globulin Ratio 0.7 L Current Medications Acetaminophen (Acetaminophen 325 Mg Tablet) 650 mg PO Q6H PRN PRN PRN Reason: Pain Score 1-10/Temp > 100.7 F Last Admin: 08/24/20 01:33 Dose: 650 mg Documented by: Benztropine Mesylate (Benztropine 2 Mg Tablet) 4 mg PO BID [facility] Last Admin: 08/24/20 08:28 Dose: 4 mg Documented by: Calcium Carbonate (Calcium Carbonate 500 Mg Tablet) 500 mg PO Q4H PRN PRN PRN Reason: HEARTBURN Enoxaparin Sodium (Enoxaparin 60 Mg/0.6 Ml Syringe) 60 mg SC BID [facility] Last Admin: 08/24/20 08:32 Dose: 60 mg Documented by: Haloperidol (Haloperidol 5 Mg Tablet) 5 mg PO BID [facility] Last Admin: 08/24/20 08:28 Dose: 5 mg Documented by: Sodium Chloride () 1,000 mls @ 75 mls/hr IV .[id number] [facility] Last Infusion: 08/24/20 14:23 Dose: 75 mls/hr Documented by: Sodium Chloride () 250 mls @ 15 mls/hr IV .[id number] PRN PRN Reason: Saline Flush Last Infusion: 08/23/20 18:44 Dose: 0 mls/hr Documented by: Ondansetron HCl (Ondansetron 4 Mg/2 Ml Vial) 4 mg IV Q8H PRN PRN PRN Reason: NAUSEA/VOMITING Sodium Chloride (0.9% Saline Lock 10 Ml Syringe) 10 - 40 ml IV UD PRN PRN Reason: SALINE FLUSH Last Admin: 08/23/20 10:33 Dose: 10 ml Documented by: Discharge Activity: May Not Drive - for 2 weeks Call your doctor if your incision/area has: Swelling at the incision site Call your doctor if you observe: Fever of 101 or Higher, Coldness, Increased Pain, Change in Color, Inability to urinate, Inability to have a bowel movement, Swelling in the ankles, Chest pain, Increased palpitations (irregular heartbeat), Calf discomfort, Uncontrolled pain Home Medications: Medications to take at Discharge Benztropine [Cogentin] 4 mg PO BID 07/07/20 Haloperidol [Haldol] 5 mg PO BID 07/07/20 l-Mefol/A-Cyst/Meb12/Algal Oil [Cerefolin Nac Caplet] 1 ea PO DAILY 07/07/20 Apixaban [Eliquis] 5 mg PO BID #28 tab.ds.pk 08/24/20 Following Prescriptions Were Given to Patient: Apixaban [Eliquis] 5 mg PO BID #28 tab.ds.pk Transmission Status: Received by [facility] Primary Care Physician: Jonny Matthews MD [Primary Care Provider] - Please follow up with your Primary Care Physician in: in 1-2 weeks Please Follow Up With: Rah Julian MD When: in 2 weeks Please Follow Up With: Chiki Castrejon MD When: in 3 weeks for hypercalcemia Medical Necessity - Tobacco Use Smoking Status: Light Smoker (<10/day) Tobacco Use: Cigarettes Meaningful Use Info Meaningful Use Diagnoses (Choose all that apply): None applicable Please cancel the billing charge of progress note of the same date Inpatient E&M: [id number] [facility] Hosp
--- NOTE | 2020-08-24 17:15 | CASEMGMT ---
GABINO STAPLETON ASSESSMENT Pt is COVID-19 positive and in isolation precautions. GABINO STAPLETON placed call to pt's room and assessment completed via phone. Pt is A/O at this time and answers all questions appropriately. Care providers, pharmacy, and demographics verified/updated at this time. PCP: Dr Jonny Matthews Specialists:None Preferred Pharmacy:[facility] Retail pharmacy Insurance: AA Prescription Benefit: none Living Will/HPOA: Pt does not currently have LW/HCPOA LNOK: Brother, Scott. [id number], Stephen. Living Arrangements: Lives w/his brother in a 1-story apt and states no concerns at home at this time. Pt states he is independent w/ADL's. Transportation: States no transportation concerns at this time. DME: Denies using any DME and denies needs. HHC/SNF: No history of either. Pt wishes to return home and states has no concerns with going home. Pt voices no concerns/needs at this time. PLAN: Home w/discharge plans in place. Zacarias LOZOYA RN, CM
== END 2020-08-24 18:46 | disposition home or self-care (01) | DRG 871 ==
LOC: ED 20:51 → PCU 21:28 → ICU 08-22 01:40 → MS2 08-24 10:56
PROVIDERS: Internal Medicine; Emergency Provider Emergency Medicine; PCP Family Medicine; Visit Provider Internal Medicine
DX: A41.89 Other specified sepsis (principal); U07.1 COVID-19; G93.41 Metabolic encephalopathy; J12.89 Other viral pneumonia; N17.9 Acute kidney failure, unspecified; F20.0 Paranoid schizophrenia; R65.20 Severe sepsis without septic shock; E83.52 Hypercalcemia; E87.6 Hypokalemia; E83.42 Hypomagnesemia; R59.0 Localized enlarged lymph nodes; K21.9 Gastro-esophageal reflux disease without esophagitis; F17.210 Nicotine dependence, cigarettes, uncomplicated; Z79.899 Other long term (current) drug therapy
CPT/HCPCS: 70450; 71045; 71046; 80048; 80053; 81001; 82652; 83605; 83615; 83735; 84145; 85025; 85379; 85384; 85610; 85730; 87040; 87632; 87635; 93005; 97110; 97116; 97162; 97165; 97530; 97535; 99282; 99285; 99406; J7030; J7040; J7050; A4216; U0003

== ENCOUNTER → 2020-09-15 16:41 | Outpatient (CLI) | payer SELFPAY ==
[2020-09-15 16:15] VITALS: BMI 22.2
[2020-09-15 18:46] LABS: Anion Gap 5 (5-15); BUN 22 mg/dL (7-18); BUN/Creat Ratio 12.5 RATIO (10-20); Calcium,Total 10.2 mg/dL (8.5-10.1); Chloride 107 mmol/L (98-107); Creatinine, Serum 1.76 mg/dL (0.70-1.30); EST Glomerular Filtration Rate 43 mL/min (>60); Est Glom Filt Rate - Afr Amer 52 mL/min (>60); Glucose 96 mg/dL (74-106); Sodium Level 141 mmol/L (136-145)
[2020-09-15 18:49] LABS: Vitamin D,25 Hydroxy 34.9 ng/mL
[2020-09-16 08:13] LABS: PTHIN 7.9 pg/mL (18.4-80.1)
[2020-09-23 10:36] LABS: Vitamin A, Retinol 69.4 ug/dL (20.1-62.0)
== END ==
PROVIDERS: PCP Family Medicine; Referring Provider Internal Medicine Endocrinology, Diabetes & Metabolism; Visit Provider Internal Medicine Endocrinology, Diabetes & Metabolism
DX: E83.52 Hypercalcemia (principal)
CPT/HCPCS: 36415; 80048; 82306; 83970; 84590

== ENCOUNTER → 2020-10-06 14:03 | Outpatient (CLI) | payer OTHER, SELFPAY ==
[2020-09-15 16:15] VITALS: BMI 22.2
[2020-10-06 16:09] LABS: Hematocrit 35.1 % (40-54); Mean Corp Hgb Conc 31.3 g/dL (32-36); Mean Corpuscular Volume 98.9 fL (80-94); Mean Platelet Vol. 9.8 fl (6.2-12.0); Platelet Count 308 K/mm3 (150-450); RBC Distribution Width CV 14.3 % (11.6-14.6); RBC Distribution Width SD 52.3 fl (35.1-43.9); Red Blood Count 3.55 M/mm3 (4.6-6.2); White Blood Count 6.4 K/mm3 (4.4-11.0)
[2020-10-06 16:37] LABS: Albumin, Serum 3.7 g/dL (3.2-5.0); BUN 20 mg/dL (7-18); Calcium,Total 11.2 mg/dL (8.5-10.1); Chloride 108 mmol/L (98-107); Creatinine, Serum 1.66 mg/dL (0.70-1.30); EST Glomerular Filtration Rate 46 mL/min (>60); Est Glom Filt Rate - Afr Amer 55 mL/min (>60); Ferritin 157 ng/mL (26-388); Glucose 93 mg/dL (74-106); Iron 53 ug/dL (65-175); Iron Binding Capacity,Total 269 ug/dL (250-450); Phosphorus 2.5 mg/dL (2.5-4.9); Potassium 3.9 mmol/L (3.5-5.1); Sodium Level 141 mmol/L (136-145)
[2020-10-08 15:51] LABS: Angiotensin Convert Enzyme 79 U/L (14-82)
== END ==
PROVIDERS: PCP Family Medicine; Visit Provider Internal Medicine Nephrology
DX: N18.32 Chronic kidney disease, stage 3b (principal); D63.1 Anemia in chronic kidney disease; D64.9 Anemia, unspecified; R59.0 Localized enlarged lymph nodes
CPT/HCPCS: 36415; 80069; 82164; 82728; 83540; 83550; 85027

== ENCOUNTER 2020-12-13 13:44 | Emergency (ER) | payer OTHER, SELFPAY ==
[2020-09-15 16:15] VITALS: BMI 22.2
[2020-12-13 13:44] VITALS: BP 134/76; PULSE 105; RESP 16; TEMP 36.7; BMI 23.6
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
--- NOTE | 2020-12-13 15:02 | ED.DEP ---
ED Disposition - Plan for ED Patient: Instructions: ED Knee Sprain Referrals: Jonny Matthews MD [Primary Care Provider] -
== END 2020-12-13 15:27 | disposition home or self-care (01) ==
LOC: ED 14:56
PROVIDERS: Emergency Provider Emergency Medicine; PCP Family Medicine
DX: S80.02XA Contusion of left knee, initial encounter (principal); V18.4XXA Pedal cycle driver injured in noncollision transport accident in traffic accident, initial encounter; Y93.55 Activity, bike riding; Y92.9 Unspecified place or not applicable; Y99.9 Unspecified external cause status; F20.9 Schizophrenia, unspecified; Z72.0 Tobacco use; Z79.899 Other long term (current) drug therapy
CPT/HCPCS: 73564; 73590; 99282

== ENCOUNTER 2023-05-27 10:52 | Emergency (ER) | payer BC, SELFPAY ==
[2023-05-27 10:54] VITALS: BP 121/86; PULSE 112; RESP 22; TEMP 36.4; O2SAT 94; BMI 22.4
--- NOTE | 2023-05-27 11:17 | ED.RN ---
Patient c/o muscle spasms over the last 3 weeks, worsening last night. States spasms may be from haldol medication.
--- NOTE | 2023-05-27 11:17 | EX.ED.DYSGE1 ---
HPI <YULIANA Zavaleta - Last Filed: 05/27/23 19:04> History of Present Illness Chief Complaint: General Illness Narrative Narrative: Patient presenting today due to a spasming pain on the upper right side of his abdomen that radiates to the right side of his back and right shoulder that he has had for the past 3 weeks intermittently. Nothing seems to make the pain worse or better. Last night he felt that it was worse than it has been, prompting him to come in today. He reports that he had a cough for a week or 2 that has gone away that he attributes to his GERD. Past abdominal surgery includes appendectomy. He denies any fever, chills, nausea, vomiting, diarrhea, chest pain, shortness of breath, history of blood clots, and constipation. PMH includes schizoaffective disorder. PFSH <YULIANA Zavaleta - Last Filed: 05/27/23 19:04> PFSH Medical History (Updated 05/27/23 @ 22:[address] Shane Hodge MD) GERD (gastroesophageal reflux disease) Hypercalcemia Light tobacco smoker Paranoid schizophrenia Restless leg Home Medications benztropine 2 mg tablet 4 mg PO BID parkinsons 07/07/20 [History Last Taken 08/21/20] haloperidol 1 mg tablet 5 mg PO BID anxiety 07/07/20 [History Last Taken 08/21/20] Ferrous Sulfate PO BID 12/13/20 [History Last Taken Unknown] amoxicillin 875 mg-potassium clavulanate 125 mg tablet 1 tab PO BID 7 days #14 tabs 05/27/23 [Rx Last Taken Unknown] Allergy/AdvReac Type Severity Reaction Status Date / Time No Known Allergies Allergy Verified 05/27/23 12:04 Family History Aunt Cancer maternal Uncle Cancer maternal Mother Pacemaker Surgical History History of appendectomy Social History Smoking Status: Current some day smoker tobacco type: cigarettes alcohol intake: current details: Rarely substance use type: does not use ROS <YULIANA Zavaleta - Last Filed: 05/27/23 19:04> ROS ED Constitutional Constitutional ED: Denies chills or fever(s) Eyes Eyes: Denies change in vision Cardiovascular Cardiovascular: Denies chest pain Respiratory/Chest Respiratory/Chest: Denies cough, dyspnea or dyspnea on exertion Gastrointestinal Gastrointestinal: Reports abdominal pain; Denies nausea or vomiting Genitourinary Genitourinary ED: Denies dysuria, hematuria or urinary frequency Musculoskeletal Musculoskeletal: Reports back pain and myalgias Integumentary Denies abscess, Abrasions or rash Neurologic Neurologic: Denies paresthesias or weakness EXAM <YULIANA Zavaleta - Last Filed: 05/27/23 19:04> Physical Exam Const Vital Signs: 05/27/23 10:54 05/27/23 11:13 05/27/23 12:52 Temperature 97.6 F L Temperature Source Temporal Pulse Rate 112 H 76 Respiratory Rate 22 H 18 Respiratory Effort Normal Respiratory Pattern Normal Blood Pressure 121/86 H 125/80 H Blood Pressure Mean 97 95 Pulse Ox 94 94 Oxygen Delivery Method Room Air Room Air 05/27/23 15:47 05/27/23 17:49 Temperature Temperature Source Pulse Rate 88 72 Respiratory Rate 18 Respiratory Effort Respiratory Pattern Blood Pressure 124/68 H 126/70 H Blood Pressure Mean 86 88 Pulse Ox 99 Oxygen Delivery Method Room Air Positive well nourished, well developed and no apparent distress General Appearance ED: well developed HEENT Reports normocephalic and head/scalp atraumatic Mouth ED: Yes moist mucous membranes normal Eyes PERRL and EOMs intact bilaterally Neck full ROM and supple Chest Wall inspection of chest normal Resp normal respiratory effort Resp Narrative: Lung sounds slightly diminished on the right side Cardio regular rate and regular rhythm GI soft to palpation, non-tender, non-distended and no masses Back/Spine normal ROM and normal to inspection Extremity normal to inspection and full ROM Neuro oriented x3, CN's II-XII intact bilaterally, moves all extremities, no focal motor deficits and no sensory deficits noted Sensorium / Orientation: awake and alert Psych mental status grossly normal and thought process normal Skin no rashes or lesions noted and no wounds <Dr. Shane Hodge MD - Last Filed: 05/27/23 22:14> Physical Exam Const Vital Signs: 05/27/23 10:54 05/27/23 11:13 05/27/23 12:52 Temperature 97.6 F L Temperature Source Temporal Pulse Rate 112 H 76 Respiratory Rate 22 H 18 Respiratory Effort Normal Respiratory Pattern Normal Blood Pressure 121/86 H 125/80 H Blood Pressure Mean 97 95 Pulse Ox 94 94 Oxygen Delivery Method Room Air Room Air 05/27/23 15:47 05/27/23 17:49 Temperature Temperature Source Pulse Rate 88 72 Respiratory Rate 18 Respiratory Effort Respiratory Pattern Blood Pressure 124/68 H 126/70 H Blood Pressure Mean 86 88 Pulse Ox 99 Oxygen Delivery Method Room Air [facility] <YULIANA Zavaleta - Last Filed: 05/27/23 19:04> [facility] Narrative Medical decision making narrative: Patient presenting today for a spasming pain on his right side and R upper abdomen that radiates to his mid right back and right shoulder that he has had intermittently for the past 3 weeks. Nothing seems to make the pain better or worse. Was unable to really produce this by palpation, his belly is soft and nontender, he does not have any tenderness in his back. However, when lying the patient down on the examination bed the pain worsened. Remote history of hypercalcemia with concerns for malignancy but patient reports that malignancy was ruled out at that time. Labs to be obtained to rule out leukocytosis, anemia, electrolyte abnormality, hepatobiliary etiology. Chest x-ray will be obtained to rule out infiltrate as patient did have a cough that lasted for a few weeks but has now gone away. Patient does have leukocytosis, chest x-ray shows right sided infiltrates and a right-sided pleural effusion. CT of the chest with contrast obtained for further evaluation and shows the same. He is not he is well-appearing acute stress, he is afebrile. He was given a dose of Zosyn here and will be started on Augmentin. He is to follow-up with his PCP will be discharged home in stable condition. He is comfortable with plan. He has been given return instructions. Lab Data Attestation: I reviewed the patient's lab results. Labs: Laboratory Results - last 24 hr 05/27/23 11:35 WBC 19.8 H RBC 4.12 L Hgb 12.6 L Hct 38.0 L MCV 92.2 MCH 30.6 MCHC 33.2 RDW Std Deviation 43.7 RDW Coeff of Madie 12.9 Plt Count 480 H MPV 8.8 Immature Gran % (Auto) 0.300 Neut % (Auto) 89.6 H Lymph % (Auto) 3.7 L [place] % (Auto) 5.9 Eos % (Auto) 0.2 Baso % (Auto) 0.3 Absolute Neuts (auto) 17.7 H Absolute Lymphs (auto) 0.74 L Nucleated RBC % 0 Sodium 139 Potassium 4.0 Chloride 109 H Carbon Dioxide 27.0 Anion Gap 3 L BUN 12 Creatinine 1.16 Estim Creat Clear Calc 71.79 Est GFR (MDRD) Af Amer 83 Est GFR (MDRD) Non-Af 69 BUN/Creatinine Ratio 10.3 Glucose 135 H Calcium 9.3 Total Bilirubin 1.00 Direct Bilirubin 0.34 H AST 8 L ALT 12 L Alkaline Phosphatase 89 Total Protein 7.5 Albumin 2.7 L Globulin 4.8 H Radiography X-Ray: Read by ED Physician and Read by Radiologist Diagnostic Testing: Clinical Impression(s) from Imaging Studies Chest X-Ray 05/27/23 11:21 IMPRESSION: Right mid and lower lobes infiltrates concerning for pneumonia. Right pleural effusion. Electronically Signed: Naveed Fernandez MD at 12:42 EDT , Chest CT 05/27/23 12:47 IMPRESSION: 1. Right middle and lower lobes infiltrates concerning for pneumonia. 2. Moderate right pleural effusion which could be loculated anteriorly. 3. Mediastinal nodes likely reactive. Electronically Signed: Naveed Fernandez MD at 13:56 EDT , <Dr. Shane Hodge MD - Last Filed: 05/27/23 22:14> [facility] Lab Data Labs: Laboratory Results - last 24 hr 05/27/23 11:35 WBC 19.8 H RBC 4.12 L Hgb 12.6 L Hct 38.0 L MCV 92.2 MCH 30.6 MCHC 33.2 RDW Std Deviation 43.7 RDW Coeff of Madie 12.9 Plt Count 480 H MPV 8.8 Immature Gran % (Auto) 0.300 Neut % (Auto) 89.6 H Lymph % (Auto) 3.7 L [place] % (Auto) 5.9 Eos % (Auto) 0.2 Baso % (Auto) 0.3 Absolute Neuts (auto) 17.7 H Absolute Lymphs (auto) 0.74 L Nucleated RBC % 0 Sodium 139 Potassium 4.0 Chloride 109 H Carbon Dioxide 27.0 Anion Gap 3 L BUN 12 Creatinine 1.16 Estim Creat Clear Calc 71.79 Est GFR (MDRD) Af Amer 83 Est GFR (MDRD) Non-Af 69 BUN/Creatinine Ratio 10.3 Glucose 135 H Calcium 9.3 Total Bilirubin 1.00 Direct Bilirubin 0.34 H AST 8 L ALT 12 L Alkaline Phosphatase 89 Total Protein 7.5 Albumin 2.7 L Globulin 4.8 H Radiography Diagnostic Testing: Clinical Impression(s) from Imaging Studies Chest X-Ray 05/27/23 11:21 IMPRESSION: Right mid and lower lobes infiltrates concerning for pneumonia. Right pleural effusion. Electronically Signed: Naveed Fernandez MD at 12:42 EDT , Chest CT 05/27/23 12:47 IMPRESSION: 1. Right middle and lower lobes infiltrates concerning for pneumonia. 2. Moderate right pleural effusion which could be loculated anteriorly. 3. Mediastinal nodes likely reactive. Electronically Signed: Naveed Fernandez MD at 13:56 EDT , My interpretation of the CT agrees with that of the radiologist. Treatment and Re-Evaluation Comments:: Seen and evaluated independently and in conjunction with physician diet assistant. Agree with notes above unless documented otherwise. Several weeks of discomfort on his right side when he lays down. Gives him discomfort in his right shoulder as well. Discomfort is intermittent. No symptoms after meals, no nausea or vomiting, he denies being dyspneic, history is limited due to his schizophrenia and his affect, but it sounds like when he lays down it is hard for him to breathe and he is uncomfortable and has to sit up. Does not have discomfort right now while sitting here at rest. Exam: Decreased breath sounds right base and midlung compared with the contralateral side. Trachea midline. Heart is regular mild tachycardia. No murmurs. Abdomen soft nontender nondistended. Plan: Chest x-ray, suspect right pleural effusion. If confirmed, labs and CT will be obtained, he is nonhypoxic and he is relatively well clinically and stable hemodynamically, thoracentesis could be set up as an outpatient. CT consistent with pneumonia parapneumonic effusion. He is not hypoxic, his tachycardia resolved, he is doing well even with mild exertion. We think he is stable for discharge home and close outpatient follow-up we discussed reasons to return he is comfortable with that plan. Discharge Plan Triage Chief Complaint: General Illness ED Midlevel Provider: Valerie Triplett ED Provider: Shane Hodge Dx/Rx/DC Orders Clinical Impression: Pneumonia, Parapneumonic effusion Instructions: ED Pleural Effusion, ED Pneumonia (Adult) Prescriptions: New amoxicillin-pot clavulanate 875-125 mg tablet 1 tab PO BID 7 Days Qty: 14 0RF No Action haloperidol 1 MG tablet 5 mg PO BID benztropine 2 MG tablet 4 mg PO BID Ferrous Sulfate PO BID Primary Care Provider: Jonny Matthews Referrals: Jonny Matthews MD [Primary Care Provider] - 3-5 Days Activity Restrictions/Additional Instructions: Please follow-up with your PCP in 3 to 5 days or return for any worsening of symptoms. Taking antibiotics as prescribed. Disposition Disposition: Home, Self Care Discharge Date/Time: 05/27/23 18:09
--- NOTE | 2023-05-27 11:21 | RAD_ITS ---
INDICATION: cough EXAMINATION/TECHNIQUE: X-RAY - XR Chest 2 Views COMPARISON: Chest x-ray of 08/23/2020. FINDINGS: LINES/DEVICES: None. LUNGS: Right lower and middle lobe infiltrates concerning for pneumonia. Elevation of the right hemidiaphragm. Small right pleural effusion part of which could be subpulmonic. MEDIASTINUM AND CARDIOVASCULAR STRUCTURES: Cardiac silhouette not enlarged. Central airways and mediastinal contour are unremarkable. BONES AND SOFT TISSUES: Unremarkable. RAD/Chest PA and Lateral IMPRESSION: Right mid and lower lobes infiltrates concerning for pneumonia. Right pleural effusion. Electronically Signed: Naveed Fernandez MD at 12:42 EDT ,
[2023-05-27 11:44] LABS: Absolute Lymphocyte Count 0.74 X10^3/uL (0.83-4.51); Absolute Neutrophil Count 17.7 X10^3/uL (2.0-7.7); Basophil# 0.05 X10^3/uL; Basophil% 0.3 % (0-1); Eosinophil# 0.04 X10^3/uL; Eosinophils% 0.2 % (0-5); Hemoglobin 12.6 g/dL (13.0-16.5); Lymphocyte # 0.74 X10^3/ul (0.83-4.51); Lymphocyte % 3.7 % (19-41); Mean Corp Hgb Conc 33.2 g/dL (32-36); Mean Corpuscular Hgb 30.6 pg (27.0-32.0); Mean Corpuscular Volume 92.2 fL (80-94); Mean Platelet Vol. 8.8 fl (6.2-12.0); Monocyte# 1.16 X10^3/uL; Monocyte% 5.9 % (0-10); NRBC Flagged by Analyzer 0 % (0-5); Neutrophil % 89.6 % (47-70); Platelet Count 480 K/mm3 (150-450); RBC Distribution Width CV 12.9 % (11.6-14.6); RBC Distribution Width SD 43.7 fl (35.1-43.9); Red Blood Count 4.12 M/mm3 (4.6-6.2); White Blood Count 19.8 K/mm3 (4.4-11.0)
[2023-05-27 12:02] LABS: AST(SGOT) 8 U/L (15-37); Alanine Aminotransfer ALT/SGPT 12 U/L (16-61); Albumin, Serum 2.7 g/dL (3.2-5.0); Alkaline Phosphatase 89 U/L (45-117); Anion Gap 3 (5-15); BUN 12 mg/dL (7-18); BUN/Creat Ratio 10.3 RATIO (10-20); Bilirubin, Direct 0.34 mg/dL (0.00-0.30); Calcium,Total 9.3 mg/dL (8.5-10.1); Chloride 109 mmol/L (98-107); Creatinine, Serum 1.16 mg/dL (0.70-1.30); EST Glomerular Filtration Rate 69 mL/min (>60); Est Glom Filt Rate - Afr Amer 83 mL/min (>60); Estimated Creatinine Clearance 71.79 ml/min; Globulin 4.8 g/dL (2.2-4.2); Glucose 135 mg/dL (74-106); Protein, Total 7.5 g/dL (6.4-8.2); Sodium Level 139 mmol/L (136-145)
--- NOTE | 2023-05-27 12:47 | CT_ITS ---
INDICATION: cough, pleural effusion R EXAMINATION: CT CHEST WITH CONTRAST - CT Chest W/ Contrast Injection TECHNIQUE: Helically acquired images were obtained of the chest following IV contrast. A radiation dose optimization technique was used for this scan. IV Contrast dosage and agent: RADIATION DOSAGE (If Supplied By Facility): CTDIvol = ( 12.90 ) mGy, DLP = ( 478.62 ) mGycm COMPARISON: CT chest 07/26/2020 and chest x-ray of 05/27/2023. FINDINGS: LUNGS, PLEURA AND LARGE AIRWAYS: Right lower lobe right middle lobe infiltrates concerning for pneumonia. Moderate right pleural effusion which could be loculated anteriorly. Atelectatic changes of the left lower lobe. THYROID: No thyroid lesions. HEART AND PERICARDIUM: Heart size is normal. No pericardial effusion. VESSELS: Thoracic aorta is not dilated. No aortic dissection. No obvious central pulmonary embolism although this study was not performed with the pulmonary embolism protocol. MEDIASTINUM AND CANDELARIA: Few nodes in the aortopulmonic window and subcarinal region could be reactive. Esophagus is unremarkable. No hiatal hernia. UPPER ABDOMEN: Heterogeneous enhancement of the liver and spleen likely due to arterial phase of scanning difficult to accurately evaluate on this exam. BONES: No suspicious lytic or blastic abnormality. CT/Chest WITH Contrast IMPRESSION: 1. Right middle and lower lobes infiltrates concerning for pneumonia. 2. Moderate right pleural effusion which could be loculated anteriorly. 3. Mediastinal nodes likely reactive. Electronically Signed: Naveed Fernandez MD at 13:56 EDT ,
[2023-05-27 12:52] VITALS: BP 125/80; PULSE 76; RESP 18; O2SAT 94
[2023-05-27 15:47] VITALS: BP 124/68; PULSE 88; RESP 18; O2SAT 99
[2023-05-27 17:49] VITALS: BP 126/70; PULSE 72
== END 2023-05-27 18:09 | disposition home or self-care (01) ==
PROVIDERS: Physician Assistant; Emergency Provider Emergency Medicine; PCP Family Medicine; Visit Provider Emergency Medicine
DX: J18.9 Pneumonia, unspecified organism (principal); F20.0 Paranoid schizophrenia; J91.8 Pleural effusion in other conditions classified elsewhere; R10.11 Right upper quadrant pain; F17.210 Nicotine dependence, cigarettes, uncomplicated; K21.9 Gastro-esophageal reflux disease without esophagitis; Z79.899 Other long term (current) drug therapy
CPT/HCPCS: 71046; 71260; 80048; 80076; 85025; 96365; 99282; Q9967

== ENCOUNTER 2023-07-18 19:55 | Inpatient (IN) | payer BC, SELFPAY ==
[2023-07-18 19:56] VITALS: BP 125/86; PULSE 96; RESP 15; TEMP 36.4; O2SAT 98; BMI 21.7
--- NOTE | 2023-07-18 20:17 | EX.ED.DYSGE1 ---
HPI History of Present Illness Chief Complaint: Cough Informant: patient Narrative Narrative: Sent here from urgent care for evaluation. I spoke with practitioner prior to his arrival. Sent a cough for 2 weeks. Mild sputum. No fevers. Remote tobacco in the past. Per discussion a chest x-ray performed concerning for a 9 x 7 x 6 opacity right lower lobe reporting mass versus empyema. He was sent here for CT scan. He denies any dyspnea. Reports he was here for pneumonia 6 weeks ago. Records reviewed, May 27 seen diagnosed with pneumonia had concerns for possible loculated anterior fluid collection right middle/lower lobe. He was on antibiotics. He states he follow-up with his PCP couple days later was feeling better. He did feel better after antibiotic treatment. Prior similar symptoms: Yes PFSH PFS Medical History (Updated 07/18/23 @ 23:[address] Clem Barron DO) GERD (gastroesophageal reflux disease) Hypercalcemia Light tobacco smoker Paranoid schizophrenia Restless leg Home Medications benztropine 2 mg tablet 4 mg PO BID parkinsons 07/07/20 [History Last Taken 08/21/20] haloperidol 1 mg tablet 5 mg PO BID anxiety 07/07/20 [History Last Taken 08/21/20] Ferrous Sulfate PO BID 12/13/20 [History Last Taken Unknown] Allergy/AdvReac Type Severity Reaction Status Date / Time No Known Allergies Allergy Verified 07/18/23 19:59 Family History Aunt Cancer maternal Uncle Cancer maternal Mother Pacemaker Surgical History History of appendectomy Social History Smoking Status: Former smoker alcohol intake: current details: Rarely substance use type: does not use ROS ROS ED Constitutional Constitutional ED: Denies chills, fever(s) or sweats Eyes Eyes: Denies change in vision ENT ENT ED: Denies dysphagia or sore throat Cardiovascular Cardiovascular: Denies chest pain, leg edema, palpitations or racing heartbeat Respiratory/Chest Respiratory/Chest: Denies cough, dyspnea or dyspnea on exertion Gastrointestinal Gastrointestinal: Denies abdominal pain, diarrhea, nausea or vomiting Genitourinary Genitourinary ED: Denies dysuria, hematuria or urinary frequency Musculoskeletal Musculoskeletal: Denies back pain, extremity pain or neck pain Integumentary Denies rash or wounds Neurologic Neurologic: Denies headache(s), paresthesias or weakness EXAM Physical Exam Const Vital Signs: 07/18/23 19:56 07/18/23 20:13 07/18/23 20:59 Temperature 97.5 F L 97.5 F L Temperature Source Temporal Temporal Pulse Rate 96 92 Respiratory Rate 15 14 Respiratory Effort Normal Respiratory Depth Normal Respiratory Pattern Normal Blood Pressure 125/86 H 133/78 H Blood Pressure Mean 99 96 Pulse Ox 98 95 Oxygen Delivery Method Room Air Room Air Room Air Positive well nourished and well developed Constitutional Narrative: Nontoxic General Appearance ED: well developed and NAD HEENT Reports moist mucous membranes normocephalic and atraumatic Eyes PERRL, EOMs intact bilaterally and conjunctivae normal General Eye ED: Yes normal appearance of both eyes Neck no lymphadenopathy and supple General: Negative for tenderness Chest Wall Chest: Negative for tenderness Resp normal respiratory effort Resp Narrative: No distress, Diminished breath sounds right lower lobe Effort and Inspection: symmetric chest movement; Negative for respiratory distress Cardio regular rate, regular rhythm and no murmurs Peripheral Pulses: pulses 2+ throughout GI normal to inspection, nondistended, normoactive bowel sounds and non-tender Palpation: Negative for guarding or rebound tenderness present Back/Spine no CVA tenderness and no thoracic nor lumbar tenderness Extremity normal to inspection General Extremety ED: Negative for edema or tenderness General Extremity: Negative for edema Neuro oriented x3 and no sensory deficits noted Sensorium / Orientation: awake and alert Skin no rashes or lesions noted and no wounds MDM MDM MDM Narrative Medical decision making narrative: Interventions / MDM: Differential diagnosis: Lung mass, empyema Diagnosis considered but do not suspect: N/A My EKG interpretation: N/A Imaging independently reviewed and interpreted by myself: CT chest with IV contrast: Right lower posterior lobe empyema, is also read by radiology. External documents reviewed: N/A Test considered but not ordered:N/A ED course: Patient nontoxic afebrile 98% room air. Reported mass versus empyema on x-rays from urgent care. He had an anterior fluid loculation on CT from May. Labs were drawn CT chest with IV contrast ordered for further evaluation. Labs White count [address] scan concerns for empyema by radiology 8.7 cm in the largest diameter. This is different region from his CT scan from May which was on the anterior aspect. White count greater than 12 heart rate greater than 90, 2 out of 4 SIRS criteria. Lactic acid and blood cultures drawn. Lactic acid returned normal at 0.8 and he was covered with Zosyn. Due to concerning empyema, discussed with hospitalist Dr. Coto who evaluated the ED for admission. Blood pressure remained stable. Re-evaluation: stable Disposition discussed with patient/family/significant other: Patient and family Case discussed with consulting clinician: Hospitalist This note was generated with [employer] dictation software. It may contain incorrect words, spelling, and punctuation that were not noted in checking the note before signing. Lab Data Labs: Laboratory Results - last 24 hr 07/18/23 20:15 WBC 12.1 H RBC 3.44 L Hgb 9.4 L Hct 31.4 L MCV 91.3 MCH 27.3 MCHC 29.9 L RDW Std Deviation 46.5 H RDW Coeff of Madie 13.9 Plt Count 690 H MPV 8.8 Immature Gran % (Auto) 0.400 Neut % (Auto) 82.1 H Lymph % (Auto) 10.2 L [place] % (Auto) 4.5 Eos % (Auto) 2.2 Baso % (Auto) 0.6 Absolute Neuts (auto) 9.9 H Absolute Lymphs (auto) 1.23 Nucleated RBC % 0 Sodium 139 Potassium 3.5 Chloride 106 Carbon Dioxide 28.0 Anion Gap 5 BUN 13 Creatinine 1.05 Estim Creat Clear Calc 76.75 Est GFR (MDRD) Af Amer 93 Est GFR (MDRD) Non-Af 77 BUN/Creatinine Ratio 12.4 Glucose 102 Calcium 9.2 Radiography Diagnostic Testing: Clinical Impression(s) from Imaging Studies Chest CT 07/18/23 20:22 IMPRESSION: 1. Right posterior empyema with associated atelectasis and/or pneumonia. 2. Less enhancing pulmonary parenchyma overlying the superior aspect of the presumptive empyema which includes parenchyma from the upper lobe and the superior segment of the right lower lobe. This is nonspecific and may be indicative of a necrotizing pneumonia. Electronically Signed: Moise Corey DO at 20:53 EDT , ADDENDUM: 07/18/232119 IMPRESSION: 1. Right posterior empyema with associated atelectasis and/or pneumonia. 2. Less enhancing pulmonary parenchyma overlying the superior aspect of the presumptive empyema which includes parenchyma from the upper lobe and the superior segment of the right lower lobe. This is nonspecific and may be indicative of a necrotizing pneumonia. N.B. : CHARLIE Campos, confirmed on 07/18/2023 21:13:30 (ET) that the healthcare facility has received the radiology report. Electronically Signed: Moise Corey DO at 20:53 EDT , Discharge Plan Dx/Rx/DC Orders Clinical Impression: Empyema, SIRS (systemic inflammatory response syndrome), Pneumonia Disposition Disposition: Acute Care Hospital [facility] Discharge Date/Time: 07/18/23 22:42
--- NOTE | 2023-07-18 20:22 | CT_ITS ---
ACR Level 3 findings have been noted. An addendum which confirms receipt of the report will follow. EXAM: CT CHEST WITH INTRAVENOUS CONTRAST CLINICAL INDICATION: abn cxr -- ? mass vs empyema urgent care RLL TECHNIQUE: Helically acquired images were obtained of the chest with intravenous contrast. This CT exam was performed using one or more of the following dose reduction techniques: automated exposure control, adjustment of the mA and/or kV according to patient size, and/or use of iterative reconstruction technique. CONTRAST: IV 100mL [id number] COMPARISON: CT chest, 05/27/2023 FINDINGS: LUNGS AND PLEURAL SPACES: 6.0 x 4.3 x 8.7 cm pleural fluid collection in the right posterior lower hemithorax appears loculated with thick enhancing pleural rind internal foci of air, and associated atelectasis or perhaps pneumonia. Additional pleural thickening mostly right posteriorly. Less enhancing pulmonary parenchyma overlying the superior aspect of the presumptive empyema which includes parenchyma from the upper lobe and the superior segment of the right lower lobe. This is nonspecific and may be indicative of a necrotizing pneumonia. Right basilar atelectasis. No mass. HEART: No significant abnormality. Heart size is normal. No pericardial effusion. MEDIASTINUM: Moderate enlarged mediastinal lymph nodes. Esophagus is unremarkable. No hiatal hernia. THYROID: No significant abnormality. No thyroid lesions. BONES/JOINTS: Degenerative changes in the spine. No suspicious lytic or blastic abnormality. VASCULATURE: No significant abnormality. Thoracic aorta is non-dilated. No thoracic aortic dissection. No obvious central pulmonary embolism although this study was not performed with the pulmonary embolism protocol. LIVER: Heterogenous attenuation throughout the liver without any focal hepatic abnormality is nonspecific. This is similar to the prior CT examination. CT/Chest WITH Contrast IMPRESSION: 1. Right posterior empyema with associated atelectasis and/or pneumonia. 2. Less enhancing pulmonary parenchyma overlying the superior aspect of the presumptive empyema which includes parenchyma from the upper lobe and the superior segment of the right lower lobe. This is nonspecific and may be indicative of a necrotizing pneumonia. Electronically Signed: Moise Corey DO at 20:53 EDT ,
[2023-07-18 20:26] LABS: Absolute Lymphocyte Count 1.23 X10^3/uL (0.83-4.51); Absolute Neutrophil Count 9.9 X10^3/uL (2.0-7.7); Basophil# 0.07 X10^3/uL; Basophil% 0.6 % (0-1); Eosinophil# 0.26 X10^3/uL; Eosinophils% 2.2 % (0-5); Hematocrit 31.4 % (40-54); Hemoglobin 9.4 g/dL (13.0-16.5); Lymphocyte # 1.23 X10^3/ul (0.83-4.51); Lymphocyte % 10.2 % (19-41); Mean Corp Hgb Conc 29.9 g/dL (32-36); Mean Corpuscular Hgb 27.3 pg (27.0-32.0); Mean Corpuscular Volume 91.3 fL (80-94); Mean Platelet Vol. 8.8 fl (6.2-12.0); Monocyte# 0.55 X10^3/uL; Monocyte% 4.5 % (0-10); NRBC Flagged by Analyzer 0 % (0-5); Neutrophil # 9.93 X10^3/uL (2.7-7.7); Neutrophil % 82.1 % (47-70); Platelet Count 690 K/mm3 (150-450); RBC Distribution Width CV 13.9 % (11.6-14.6); RBC Distribution Width SD 46.5 fl (35.1-43.9); Red Blood Count 3.44 M/mm3 (4.6-6.2); White Blood Count 12.1 K/mm3 (4.4-11.0)
[2023-07-18 20:39] LABS: Anion Gap 5 (5-15); BUN 13 mg/dL (7-18); BUN/Creat Ratio 12.4 RATIO (10-20); Calcium,Total 9.2 mg/dL (8.5-10.1); Chloride 106 mmol/L (98-107); Creatinine, Serum 1.05 mg/dL (0.70-1.30); EST Glomerular Filtration Rate 77 mL/min (>60); Est Glom Filt Rate - Afr Amer 93 mL/min (>60); Estimated Creatinine Clearance 76.75 ml/min; Glucose 102 mg/dL (74-106); Potassium 3.5 mmol/L (3.5-5.1); Sodium Level 139 mmol/L (136-145)
[2023-07-18 20:59] VITALS: BP 133/78; PULSE 92; RESP 14; TEMP 36.4; O2SAT 95
[2023-07-18 21:27] VITALS: RESP 16
--- NOTE | 2023-07-18 21:31 | HP.PCM.HOS_ITS ---
HPI - General General Date of Admission: 07/18/23 Date of Service: 07/18/23 Chief Complaint: Productive cough HPI Narrative PELON KING, is a 57 M with a significant history of schizophrenia on Haldol and Cogentin who presents to the emergency department with 2-week history of persistent productive cough. Patient is unable to tell the color of his sputum. He denies any shortness of breath. Patient and family who was at the bedside r eports that in the past couple of weeks patient has been getting cold pretty easily. Patient went to the urgent care and because of a masslike substance seen on chest x-ray he was sent to the emergency department. [facility] Medical History GERD (gastroesophageal reflux disease) Hypercalcemia Light tobacco smoker Paranoid schizophrenia Restless leg Home Medications benztropine 2 mg tablet 4 mg PO BID parkinsons 07/07/20 [History Last Taken 0 07/18/23 17:00 4 mg] haloperidol 1 mg tablet 5 mg PO BID anxiety 07/07/20 [History Last Taken 3 17:00 5 mg] Ferrous Sulfate PO BID supplement 12/13/20 [History Last Taken Unknown] Allergy/AdvReac Type Severity Reaction Status Date / Time No Known Allergies Allergy Verified 07/18/23 19:59 Family History Aunt Cancer maternal Uncle Cancer maternal Mother Pacemaker Surgical History History of appendectomy Social History Smoking Status: Former smoker alcohol intake: current details: Rarely substance use type: does not use ROS ROS Narrative Pertinent positives and pertinent negatives as noted in HPI. All other systems were reviewed and are negative Vital Signs Vital Signs Vital Signs: 07/18/23 19:56 07/18/23 20:13 07/18/23 21:27 Temperature 97.5 F L Temperature Source Temporal Pulse Rate 96 Respiratory Rate 15 16 Respiratory Effort Normal Respiratory Depth Normal Respiratory Pattern Normal Blood Pressure 125/86 H Blood Pressure Mean 99 Pulse Ox 98 Oxygen Delivery Method Room Air Room Air Weight Weight: 70.76 kg Body Mass Index (BMI) 21.7 Physical Exam Narrative Physical exam: General: Well-nourished, well-developed. Head: Normocephalic, atraumatic, no tenderness Eyes: Vision is grossly intact. EOMI ENT, no trauma, moist mucous membranes, no rhinorrhea Neck: Nontender, No thyromegaly. CVS: Regular rate and rhythm. S1-S2 present. No murmur, gallop or rub. Respiratory : Right base is diminished and coarse. All other levin are clear. Abdomen: Soft, nontender, nondistended, normal bowel sounds, no masses : Deferred Back: Nontender, no CVA tenderness, no midline spinal tenderness, deformities, step-offs Extremities: Nontender full range of motion, no trauma Skin: Normal color, no trauma, abrasions Neuro: Alert, oriented, cranial nerves II through XII grossly intact. Psychiatry: Repeated movement of tongue in the buccal cavity. Results Lab / Micro Data 07/18/23 20:15 07/18/23 20:15 Labs: Laboratory Results - last 24 hr 07/18/23 20:15: WBC 12.1 H, RBC 3.44 L, Hgb 9.4 L, Hct 31.4 L, MCV 91.3, MCH 27.3, MCHC 29.9 L, RDW Std Deviation 46.5 H, RDW Coeff of Madie 13.9, Plt Count 690 H, MPV 8.8, Immature Gran % (Auto) 0.400, Neut % (Auto) 82.1 H, Lymph % (Auto) 10.2 L, [place] % (Auto) 4.5, Eos % (Auto) 2.2, Baso % (Auto) 0.6, Absolute Neuts (auto) 9.9 H, Absolute Lymphs (auto) 1.23, Nucleated RBC % 0, Sodium 139, Potassium 3.5, Chloride 106, Carbon Dioxide 28.0, Anion Gap 5, BUN 13, Creatinine 1.05, Estim Creat Clear Calc 76.75, Est GFR (MDRD) Af Amer 93, Est GFR (MDRD) Non-Af 77, BUN/Creatinine Ratio 12.4, Glucose 102, Calcium 9.[address] 07/18/23 20:22 IMPRESSION: 1. Right posterior empyema with associated atelectasis and/or pneumonia. 2. Less enhancing pulmonary parenchyma overlying the superior aspect of the presumptive empyema which includes parenchyma from the upper lobe and the superior segment of the right lower lobe. This is nonspecific and may be indicative of a necrotizing pneumonia. Electronically Signed: Moise Geovanna Corey DO at 20:53 EDT , ADDENDUM: 07/18/232119 IMPRESSION: 1. Right posterior empyema with associated atelectasis and/or pneumonia. 2. Less enhancing pulmonary parenchyma overlying the superior aspect of the presumptive empyema which includes parenchyma from the upper lobe and the superior segment of the right lower lobe. This is nonspecific and may be indicative of a necrotizing pneumonia. N.B. : CHARLIE Campos, confirmed on 07/18/2023 21:13:30 (ET) that the healthcare facility has received the radiology report. Electronically Signed: Moise Corey DO at 20:53 EDT , Assessment & Plan Assessment/Plan (1) Empyema: (2) Pneumonia: QUALIFIERS: Laterality: right Lung location: lower lobe of lung Pneumonia type: due to unspecified organism Qualified Code(s): J18.9 - Pneumonia, unspecified organism PLAN: Plan Pneumonia with empyema. Review of records show the patient to the emergency department and had a chest x-ray in May 2023. At that time a chest x-ray showed anterior fluid collection. At this time around a CT scan showed posterior fluid collection. Impression of a CT scan of chest by radiology: 1. Right posterior empyema with associated atelectasis and/or pneumonia. 2. Less enhancing pulmonary parenchyma overlying the superior aspect of the presumptive empyema which includes parenchyma from the upper lobe and the superior segment of the right lower lobe. This is nonspecific and may be indicative of a necrotizing pneumonia. The scan was independently interpreted, agrees with the interpretation. Vancomycin and Zosyn ordered. MRSA PCR ordered. Cultures and sputum cultures ordered Considered possible tapping of empyema. Consider discussion with IR. DVT prophylaxis: SCDs ordered. Time spent in the patient's overall evaluation,decision-making process, review of diagnostic data, adjustment of management, discussion with other providers, nursing nursing and ancillary staff involved in patient's care documentation, 65 minutes. Charges/Coding Visit Charges Inpatient E&M: 68726 Init Hosp L3
[2023-07-18] MEDS: Piperacil/Tazobactam 4.5 GM in 0.9% Normal Saline (100mL MB+) 100 ML IV (21:40)
[2023-07-18 21:41] VITALS: BP 143/85; PULSE 103; RESP 18; O2SAT 96
[2023-07-18 21:46] VITALS: BP 143/85; PULSE 90; RESP 16; TEMP 36.7; O2SAT 95
[2023-07-18 21:58] LABS: Lactic Acid 0.8 mmol/L (0.4-1.9)
[2023-07-18 22:00] VITALS: BP 120/78; PULSE 76; RESP 16; TEMP 36.7; O2SAT 98
[2023-07-18 22:56] VITALS: BMI 21.9
[2023-07-18] MEDS: Vancomycin HCl 1,750 MG in 0.9% Normal Saline (500mL Bag) 500 ML 250 MG IV (23:44)
[2023-07-18] MEDS: guaiFENesin 1,200 MG Tablet 1200 MG PO (23:47)
[2023-07-18] MEDS: 0.9% Normal Saline (250mL Bag) 250 ML 15 ML IV (23:47)
[2023-07-18] MEDS: 0.9% Saline Lock 10 ML Syringe IV (23:48)
[2023-07-19] VITALS: BP 116/72; PULSE 86; RESP 16; TEMP 37.4; O2SAT 96
--- NOTE | 2023-07-19 00:37 | PCM.RX.CS ---
Consult Antibiotic Management Pharmacy has been consulted to manage selected antiobiotic: Vancomycin Type of Intervention Type of Consult: New start Suspected Infection Suspected Infection: Pneumonia Labs Labs: Sodium 139 mmol/L (136-145) 07/18/23 20:15 Potassium 3.5 mmol/L (3.5-5.1) 07/18/23 20:15 Chloride 106 mmol/L (98-107) 07/18/23 20:15 Carbon Dioxide 28.0 mmol/L (21.0-32.0) 07/18/23 20:15 Anion Gap 5 (5-15) 07/18/23 20:15 BUN 13 mg/dL (7-18) 07/18/23 20:15 Creatinine 1.05 mg/dL (0.70-1.30) 07/18/23 20:15 Est GFR (MDRD) Af Amer 93 mL/min (>60) 07/18/23 20:15 Est GFR (MDRD) Non-Af 77 mL/min (>60) 07/18/23 20:15 BUN/Creatinine Ratio 12.4 RATIO (10-20) 07/18/23 20:15 Glucose 102 mg/dL (74-106) 07/18/23 20:15 Estimated Creatinine Clearance Estimated Creatinine Clearance: 77.2 Goal Trough Goal Trough: 15-20 mcg/mL Pharmacy Plan for Drug Dosing Pharmacy Plan for Drug Dosing: NEW START IV VANCOMYCIN Consulting Physician: Dr. Jaleel Coto Indication: Pneumonia Goal Trough: 15-20 SrCr: 1.05 mg/dl (07/18/23) CrCl: 77.2 ml/min Comments: Vancomycin loading dose 1750mg x1 given @ 2344 07/18/23 Vancomycin Dose: Vancomycin 1000mg Q12H, to start at 1200 07/19/23 Pending Level: Vancomycin trough @ 1130 07/20/23 Pharmacy Service will continue to monitor and adjust dosing as required. Follow-Up Labs Follow-Up Labs: Trough: Vancomycin Date/Time Labs Ordered Labs to be done on [date and time ordered]: 07/20/23 1130
[2023-07-19 03:00] VITALS: BP 106/69; PULSE 80; RESP 16; TEMP 37.2; O2SAT 93
[2023-07-19 04:26] LABS: M R Staph aureus DNA By PCR Negative (Negative); Probe Check PASS; Specimen Processing Control PASS
[2023-07-19 04:56] VITALS: O2SAT 93
[2023-07-19] MEDS: Piperacil/Tazobactam 3.375 GM in 0.9% Normal Saline (50mL MB+) 50 ML IV ×3 (05:28→23:18)
[2023-07-19 06:35] LABS: Absolute Lymphocyte Count 1.19 X10^3/uL (0.83-4.51); Absolute Neutrophil Count 9.8 X10^3/uL (2.0-7.7); Basophil# 0.07 X10^3/uL; Basophil% 0.6 % (0-1); Eosinophil# 0.31 X10^3/uL; Eosinophils% 2.6 % (0-5); Hematocrit 29.9 % (40-54); Lymphocyte # 1.19 X10^3/ul (0.83-4.51); Lymphocyte % 9.9 % (19-41); Mean Corp Hgb Conc 30.1 g/dL (32-36); Mean Corpuscular Hgb 27.4 pg (27.0-32.0); Mean Corpuscular Volume 91.2 fL (80-94); Mean Platelet Vol. 8.9 fl (6.2-12.0); Monocyte# 0.69 X10^3/uL; Monocyte% 5.7 % (0-10); NRBC Flagged by Analyzer 0 % (0-5); Neutrophil # 9.77 X10^3/uL (2.7-7.7); Neutrophil % 80.8 % (47-70); Platelet Count 633 K/mm3 (150-450); RBC Distribution Width CV 13.8 % (11.6-14.6); RBC Distribution Width SD 46.6 fl (35.1-43.9); Red Blood Count 3.28 M/mm3 (4.6-6.2); White Blood Count 12.1 K/mm3 (4.4-11.0)
[2023-07-19 07:00] LABS: Anion Gap 5 (5-15); BUN 11 mg/dL (7-18); BUN/Creat Ratio 11.1 RATIO (10-20); Calcium,Total 8.8 mg/dL (8.5-10.1); Chloride 110 mmol/L (98-107); Creatinine, Serum 0.99 mg/dL (0.70-1.30); EST Glomerular Filtration Rate 83 mL/min (>60); Est Glom Filt Rate - Afr Amer 100 mL/min (>60); Estimated Creatinine Clearance 81.91 ml/min; Glucose 96 mg/dL (74-106); Potassium 3.8 mmol/L (3.5-5.1); Sodium Level 141 mmol/L (136-145)
[2023-07-19 08:11] VITALS: BP 109/73; PULSE 86; RESP 18; TEMP 36.9; O2SAT 98
--- NOTE | 2023-07-19 09:52 | CASEMGMT ---
Insurance review for hospitals In-network with?[place] insurance if transfer is recommended is as follows: [facility], [facility], [facility], [facility], [facility], [facility], [facility] and . Lucie Osman, Discharge Planning Asst.
[2023-07-19] MEDS: guaiFENesin 1,200 MG Tablet 1200 MG PO ×2 (10:42→22:23)
[2023-07-19] MEDS: Haloperidol 5 MG Tablet PO ×2 (10:42→22:23)
[2023-07-19] MEDS: Doxycycline 100 MG in Dextrose 5%-Water (250mL Bag) 250 ML 250 MG IV ×2 (11:30→22:18)
--- NOTE | 2023-07-19 11:42 | EX.PCM.CONCC ---
Assessment & Plan Assessment/Plan (1) Empyema: PLAN: Plan Assessment Sepsis secondary to right lung empyema Abnormal chest CT Mediastinal lymphadenopathy History of right pleural effusion and pneumonia in May Schizophrenia Plan Patient had right pleural effusion with right lower lobe pneumonia back in May. He did not undergo thoracentesis and was discharged from the ER on Augmentin for a week which patient states he completed. There was no repeat CT scan to ensure resolution of his pneumonia CT scan of the chest with contrast done on this admission showing persistent right pleural effusion with thick pleura and concerns for necrotizing pneumonia. I suspect that this is the result of incomplete treatment of pneumonia in May. Patient will likely require VATS procedure as effusion has been ongoing since May. Discussed with primary team as well as the patient and he is agreeable for transfer to outside hospital for thoracic surgery evaluation. Continue Zosyn. Added doxycycline for atypical coverage until Legionella urine antigen is back. MRSA swab was negative DC vancomycin. Obtain sputum culture Patient will require repeat CT scan in 6 to 8 weeks after completion of treatment in order to ensure resolution Start DVT prophylaxis with lovenox HPI Consult Data Date of Consult: 07/19/23 HPI Narrative Reason for Consultation: Empyema HPI Narrative: PELON KING, is a 57 M with past medical history of schizophrenia and tobacco use . Presents with cough he was in the ER in May with right lower lobe pneumonia and moderate effusion. He was discharged from the ER on Augmentin for 7 days which he reports he had completed. Patient reports that at that time he had a lot of pleuritic pain which subsided after he completed his antibiotic course. He reports that around 2 weeks ago he started to have coughing and night chills. He denies history of dysphagia or choking on foods. He reports that he smokes around 5 cigarettes a day since the age of 29 but he is cutting down further. He denies history of COPD. Reports that he lost around 10 pounds at the time when he had pneumonia in May but he has gained it back [facility] Medical History GERD (gastroesophageal reflux disease) Hypercalcemia Light tobacco smoker Paranoid schizophrenia Restless leg Home Medications benztropine 2 mg tablet 4 mg PO BID parkinsons 07/07/20 [History Last Taken 07/18/23 17:00 4 mg] haloperidol 1 mg tablet 5 mg PO BID anxiety 07/07/20 [History Last Taken 07/18/23 17:00 5 mg] Ferrous Sulfate PO BID supplement 12/13/20 [History Last Taken Unknown] Allergy/AdvReac Type Severity Reaction Status Date / Time No Known Allergies Allergy Verified 07/18/23 19:59 Family History Aunt Cancer maternal Uncle Cancer maternal Mother Pacemaker Surgical History History of appendectomy Social History Smoking Status: Former smoker alcohol intake: current details: Rarely substance use type: does not use ROS ROS Narrative Pertinent positives and pertinent negatives as noted in HPI. All other systems were reviewed and are negative Lab / Micro Data 07/19/23 06:25 07/19/23 06:25 Labs: Laboratory Results - last 24 hr 07/18/23 20:15: WBC 12.1 H, RBC 3.44 L, Hgb 9.4 L, Hct 31.4 L, MCV 91.3, MCH 27.3, MCHC 29.9 L, RDW Std Deviation 46.5 H, RDW Coeff of Madie 13.9, Plt Count 690 H, MPV 8.8, Immature Gran % (Auto) 0.400, Neut % (Auto) 82.1 H, Lymph % (Auto) 10.2 L, [place] % (Auto) 4.5, Eos % (Auto) 2.2, Baso % (Auto) 0.6, Absolute Neuts (auto) 9.9 H, Absolute Lymphs (auto) 1.23, Nucleated RBC % 0, Sodium 139, Potassium 3.5, Chloride 106, Carbon Dioxide 28.0, Anion Gap 5, BUN 13, Creatinine 1.05, Estim Creat Clear Calc 76.75, Est GFR (MDRD) Af Amer 93, Est GFR (MDRD) Non-Af 77, BUN/Creatinine Ratio 12.4, Glucose 102, Calcium 9.2 07/18/23 21:20: Lactic Acid 0.8 07/19/23 00:05: MRSA (PCR) Negative 07/19/23 06:25: WBC 12.1 H, RBC 3.28 L, Hgb 9.0 L, Hct 29.9 L, MCV 91.2, MCH 27.4, MCHC 30.1 L, RDW Std Deviation 46.6 H, RDW Coeff of Madie 13.8, Plt Count 633 H, MPV 8.9, Immature Gran % (Auto) 0.400, Neut % (Auto) 80.8 H, Lymph % (Auto) 9.9 L, [place] % (Auto) 5.7, Eos % (Auto) 2.6, Baso % (Auto) 0.6, Absolute Neuts (auto) 9.8 H, Absolute Lymphs (auto) 1.19, Nucleated RBC % 0, Sodium 141, Potassium 3.8, Chloride 110 H, Carbon Dioxide 26.0, Anion Gap 5, BUN 11, Creatinine 0.99, Estim Creat Clear Calc 81.91, Est GFR (MDRD) Af Amer 100, Est GFR (MDRD) Non-Af 83, BUN/Creatinine Ratio 11.1, Glucose 96, Calcium 8.[address] 07/18/23 20:22 IMPRESSION: 1. Right posterior empyema with associated atelectasis and/or pneumonia. 2. Less enhancing pulmonary parenchyma overlying the superior aspect of the presumptive empyema which includes parenchyma from the upper lobe and the superior segment of the right lower lobe. This is nonspecific and may be indicative of a necrotizing pneumonia. Electronically Signed: Moise Corey DO at 20:53 EDT , ADDENDUM: 07/18/232119 IMPRESSION: 1. Right posterior empyema with associated atelectasis and/or pneumonia. 2. Less enhancing pulmonary parenchyma overlying the superior aspect of the presumptive empyema which includes parenchyma from the upper lobe and the superior segment of the right lower lobe. This is nonspecific and may be indicative of a necrotizing pneumonia. N.B. : CHARLIE Campos, confirmed on 07/18/2023 21:13:30 (ET) that the healthcare facility has received the radiology report. Electronically Signed: Moise Corey DO at 20:53 EDT , Charges/Coding Visit Charges Inpatient E&M: 72596 Init Hosp L3
[2023-07-19] MEDS: Enoxaparin 40 MG/0.4 ML Syringe SC (13:37)
[2023-07-19 14:34] VITALS: BP 96/73; PULSE 97; RESP 18; TEMP 36.6; O2SAT 95
--- NOTE | 2023-07-19 17:05 | PN.HOSP_ITS ---
Subjective Subjective Doing well, no issues overnight Objective Data Objective Data Vital Signs: Vital Signs Temp Pulse Resp BP Pulse Ox O2 Del Method 97.8 F 97 18 96/73 95 Room Air 07/19/23 14:34 07/19/23 14:34 07/19/23 14:34 07/19/23 14:34 07/19/23 14:34 07/19/23 14:34 Oxygen Delivery Method Room Air Weight: 156 lb 15.506 oz Body Mass Index (BMI) 21.9 Intake & Output: Intake and Output for Last 24 Hours 07/18/23 07/19/23 07/20/23 03:59 03:59 03:59 Intake Total 638.25 / 638.25 409.00 / 409.00 Balance 638.25 / 638.25 409.00 / 409.00 Lab / Micro Data 07/19/23 06:25 07/19/23 06:25 Labs: Laboratory Results - last 24 hr 07/18/23 20:15: WBC 12.1 H, RBC 3.44 L, Hgb 9.4 L, Hct 31.4 L, MCV 91.3, MCH 27.3, MCHC 29.9 L, RDW Std Deviation 46.5 H, RDW Coeff of Madie 13.9, Plt Count 690 H, MPV 8.8, Immature Gran % (Auto) 0.400, Neut % (Auto) 82.1 H, Lymph % (Auto) 10.2 L, [place] % (Auto) 4.5, Eos % (Auto) 2.2, Baso % (Auto) 0.6, Absolute Neuts (auto) 9.9 H, Absolute Lymphs (auto) 1.23, Nucleated RBC % 0, Sodium 139, Potassium 3.5, Chloride 106, Carbon Dioxide 28.0, Anion Gap 5, BUN 13, Creatinine 1.05, Estim Creat Clear Calc 76.75, Est GFR (MDRD) Af Amer 93, Est GFR (MDRD) Non-Af 77, BUN/Creatinine Ratio 12.4, Glucose 102, Calcium 9.2 07/18/23 21:20: Lactic Acid 0.8 07/19/23 00:05: MRSA (PCR) Negative 07/19/23 06:25: WBC 12.1 H, RBC 3.28 L, Hgb 9.0 L, Hct 29.9 L, MCV 91.2, MCH 27.4, MCHC 30.1 L, RDW Std Deviation 46.6 H, RDW Coeff of Madie 13.8, Plt Count 633 H, MPV 8.9, Immature Gran % (Auto) 0.400, Neut % (Auto) 80.8 H, Lymph % (Auto) 9.9 L, [place] % (Auto) 5.7, Eos % (Auto) 2.6, Baso % (Auto) 0.6, Absolute Neuts (auto) 9.8 H, Absolute Lymphs (auto) 1.19, Nucleated RBC % 0, Sodium 141, Potassium 3.8, Chloride 110 H, Carbon Dioxide 26.0, Anion Gap 5, BUN 11, Creatinine 0.99, Estim Creat Clear Calc 81.91, Est GFR (MDRD) Af Amer 100, Est GFR (MDRD) Non-Af 83, BUN/Creatinine Ratio 11.1, Glucose 96, Calcium 8.8 Micro: Microbiology 07/18/23 21:20 Blood Culture (Wb) - Anticubital Left Bacteria Detection (PCR) - Preliminary 07/18/23 21:20 Blood Culture (Wb) - Anticubital Left Blood Culture - Preliminary 07/19/23 14:15 Urine, Clean Catch Legionella Antigen - Final 07/19/23 14:15 Urine, Clean Catch Streptococcus pneumoniae Antigen (M - Final Radiography Diagnostic Testing: Radiology Impression Chest CT 07/18/23 20:22 IMPRESSION: 1. Right posterior empyema with associated atelectasis and/or pneumonia. 2. Less enhancing pulmonary parenchyma overlying the superior aspect of the presumptive empyema which includes parenchyma from the upper lobe and the superior segment of the right lower lobe. This is nonspecific and may be indicative of a necrotizing pneumonia. Electronically Signed: Moise Corey DO at 20:53 EDT , ADDENDUM: 07/18/232119 IMPRESSION: 1. Right posterior empyema with associated atelectasis and/or pneumonia. 2. Less enhancing pulmonary parenchyma overlying the superior aspect of the presumptive empyema which includes parenchyma from the upper lobe and the superior segment of the right lower lobe. This is nonspecific and may be indicative of a necrotizing pneumonia. N.B. : CHARLIE Campos, confirmed on 07/18/2023 21:13:30 (ET) that the healthcare facility has received the radiology report. Electronically Signed: Moise Corey, DO at 20:53 EDT , Physical Exam Narrative General: Alert, Oriented x3, Cooperative, No apparent distress HEENT: Atraumatic, PERRLA, EOMI, Normocephalic Oral: Moist Mucosa Neck: Supple, No JVD Lungs: Diminished right base greater than left, Normal air movement, No rhonchi, No wheeze, No rales Cardiovascular: Regular rate, Regular Rhythm, Normal S1, Normal S2, No murmurs Abdomen: Soft, Non Tender, Non-Distended, No Hepato-splenomegaly Extremities: No edema, Capillary Refill Less than 3 Seconds Skin: No rashes, No breakdown Musculoskeletal: No Tenderness to Palpation of Joints or Extremities Neurological: Cranial nerves II-XII grossly intact, Motor Exam 5/5 strength throughout, Sensory exam intact to light touch and pain Psych/Mental Status: Normal Affect, Appropriate Assessment & Plan Assessment/Plan (1) Empyema: (2) Pneumonia: QUALIFIERS: Pneumonia type: due to unspecified organism Laterality: right Lung location: lower lobe of lung Qualified Code(s): J18.9 - Pneumonia, unspecified organism PLAN: Plan 1. Right lower lobe empyema ? At the end of May he had a large parapneumonic effusion that was not drained but was treated with antibiotics and he presents today now with a empyema with a fairly thick rind ? Continue with Zosyn and doxycycline ? Consulted pulmonology who felt that it would be appropriate to transfer as he will likely need VATS in order to treat this ? Discussed the case with [facility] who did accept him in transfer currently awaiting a bed ? He is hemodynamically stable at this time so we will continue with antibiotics monitor ? He denies any risk factors for tuberculosis 2. Schizophrenia ? Stable ? Continue with Haldol and Cogentin DVT: Lovenox Charges/Coding Visit Charges Inpatient E&M: 95297 Subs Hosp L2
[2023-07-19 19:37] VITALS: BP 113/76; PULSE 98; RESP 18; TEMP 37.2; O2SAT 95
[2023-07-19] MEDS: Benztropine 2 MG Tablet 4 MG PO (22:23)
[2023-07-20 03:00] VITALS: BP 104/75; PULSE 77; RESP 16; TEMP 36.4; O2SAT 94
[2023-07-20] MEDS: Piperacil/Tazobactam 3.375 GM in 0.9% Normal Saline (50mL MB+) 50 ML IV ×3 (05:53→21:10)
[2023-07-20] MEDS: 0.9% Saline Lock 10 ML Syringe IV (05:54)
[2023-07-20] MEDS: 0.9% Normal Saline (250mL Bag) 250 ML 15 ML IV (05:54)
[2023-07-20 07:21] VITALS: O2SAT 92
--- NOTE | 2023-07-20 08:25 | PN.HOSP_ITS ---
Subjective Subjective No issues overnight, resting comfortably. Vital signs are stable pending transfer to tertiary center for evaluation and treatment of his empyema Objective Data Objective Data Vital Signs: Vital Signs Temp Pulse Resp BP Pulse Ox O2 Del Method 97.5 F L 77 16 104/75 94 Room Air 07/20/23 03:00 07/20/23 03:00 07/20/23 03:00 07/20/23 03:00 07/20/23 03:00 07/20/23 03:00 Oxygen Delivery Method Room Air Weight: 156 lb 15.506 oz Body Mass Index (BMI) 21.9 Intake & Output: Intake and Output for Last 24 Hours 07/19/23 07/20/23 07/21/23 03:59 03:59 03:59 Intake Total 638.25 / 638.25 1067.25 / 1067.25 159.75 / 159.75 Balance 638.25 / 638.25 1067.25 / 1067.25 159.75 / 159.75 Lab / Micro Data 07/19/23 06:25 07/19/23 06:25 Micro: Microbiology 07/18/23 21:20 Blood Culture (Wb) - Anticubital Left Bacteria Detection (PCR) - Preliminary 07/18/23 21:20 Blood Culture (Wb) - Anticubital Left Blood Culture - Preliminary 07/19/23 14:15 Urine, Clean Catch Legionella Antigen - Final 07/19/23 14:15 Urine, Clean Catch Streptococcus pneumoniae Antigen (M - Final Physical Exam Narrative General: Alert, Oriented x3, Cooperative, No apparent distress HEENT: Atraumatic, PERRLA, EOMI, Normocephalic Oral: Moist Mucosa Neck: Supple, No JVD Lungs: Diminished right base greater than left, Normal air movement, No rhonchi, No wheeze, No rales Cardiovascular: Regular rate, Regular Rhythm, Normal S1, Normal S2, No murmurs Abdomen: Soft, Non Tender, Non-Distended, No Hepato-splenomegaly Extremities: No edema, Capillary Refill Less than 3 Seconds Skin: No rashes, No breakdown Musculoskeletal: No Tenderness to Palpation of Joints or Extremities Neurological: Cranial nerves II-XII grossly intact, Motor Exam 5/5 strength throughout, Sensory exam intact to light touch and pain Psych/Mental Status: Normal Affect, Appropriate Assessment & Plan Assessment/Plan (1) Empyema: (2) Pneumonia: QUALIFIERS: Pneumonia type: due to unspecified organism Laterality: right Lung location: lower lobe of lung Qualified Code(s): J18.9 - Pneumonia, unspecified organism PLAN: Plan 1. Right lower lobe empyema ? At the end of May he had a large parapneumonic effusion that was not drained but was treated with antibiotics and he presents today now with a empyema with a fairly thick rind ? Continue with Zosyn and doxycycline ? Consulted pulmonology who felt that it would be appropriate to transfer as he will likely need VATS in order to treat this ? Discussed the case with [facility] who did accept him in transfer currently awaiting a bed ? He is hemodynamically stable at this time so we will continue with antibiotics monitor ? He denies any risk factors for tuberculosis 2. Schizophrenia ? Stable ? Continue with Noris DVT: Lovenox Charges/Coding Visit Charges Inpatient E&M: 96926 Subs Hosp L2
[2023-07-20 09:02] VITALS: BP 99/67; PULSE 69; RESP 16; TEMP 36.6; O2SAT 95
[2023-07-20] MEDS: Benztropine 2 MG Tablet 4 MG PO ×2 (09:04→21:09)
[2023-07-20] MEDS: Haloperidol 5 MG Tablet PO ×2 (09:04→21:09)
[2023-07-20] MEDS: Enoxaparin 40 MG/0.4 ML Syringe SC (09:04)
[2023-07-20] MEDS: guaiFENesin 1,200 MG Tablet 1200 MG PO ×2 (09:04→21:09)
--- NOTE | 2023-07-20 10:36 | PN.CC_ITS ---
Assessment & Plan Assessment/Plan (1) Empyema: PLAN: Plan Assessment Sepsis secondary to right lung empyema Abnormal chest CT Mediastinal lymphadenopathy History of right pleural effusion and pneumonia in May Schizophrenia Plan * Patient had right pleural effusion with right lower lobe pneumonia back in May. He did not undergo thoracentesis and was discharged from the ER on Augmentin for a week which patient states he completed. There was no repeat CT scan to ensure resolution of his pneumonia * CT scan of the chest with contrast done on this admission showing persistent right pleural effusion with thick pleura and concerns for necrotizing pneumonia. I suspect that this is the result of incomplete treatment of pneumonia in May. Patient will likely require VATS procedure as effusion has been ongoing since May. Discussed with primary team as well as the patient and he is agreeable for transfer to outside hospital for thoracic surgery evaluation. He was accepted awaiting a bed at [facility] * Continue Zosyn. d/c doxycycline as legionella is negative. Obtain sputum culture still pending as pt not producing much sputum * Patient will require repeat CT scan in 6 to 8 weeks after completion of treatment in order to ensure resolution * DVT prophylaxis with lovenox Subjective Subjective No acute events. He reports some cough but not much sputum. Objective Data Objective Data Vital Signs: Vital Signs Temp Pulse Resp BP Pulse Ox O2 Del Method 36.6 C 69 16 99/67 95 Room Air 07/20/23 09:02 07/20/23 09:02 07/20/23 09:02 07/20/23 09:02 07/20/23 09:02 07/20/23 09:02 Oxygen Delivery Method Room Air Weight: 71.2 kg Body Mass Index (BMI) 21.9 Intake & Output: Intake and Output for Last 24 Hours 07/18/23 07/19/23 07/20/23 23:59 23:59 23:59 Intake Total 100 / 103.25 1555.50 / 1555.50 259.75 / 259.75 Balance 100 / 103.25 1555.50 / 1555.50 259.75 / 259.75 Lab / Micro Data 07/19/23 06:25 07/19/23 06:25 Micro: Microbiology 07/18/23 21:20 Blood Culture (Wb) - Anticubital Left Bacteria Detection ( PCR) - Preliminary 07/18/23 21:20 Blood Culture (Wb) - Anticubital Left Blood Culture - Preliminary 07/19/23 14:15 Urine, Clean Catch Legionella Antigen - Final 07/19/23 14:15 Urine, Clean Catch Streptococcus pneumoniae Antigen (M - Final Physical Exam Narrative General: Alert, Oriented x3, Cooperative, No apparent distress HEENT: Atraumatic, PERRLA, EOMI, Normocephalic Oral: Moist Mucosa Neck: Supple, No JVD Lungs: Diminished right base greater than left, Normal air movement, No rhonchi, No wheeze, No rales Cardiovascular: Regular rate, Regular Rhythm, Normal S1, Normal S2, No murmurs Abdomen: Soft, Non Tender, Non-Distended, No Hepato-splenomegaly Extremities: No edema Skin: No rashes, No breakdown Musculoskeletal: No Tenderness to Palpation of Joints or Extremities Neurological: No facial droop, moves all extremities Psych/Mental Status: Normal Affect, Appropriate
[2023-07-20 13:51] VITALS: BP 108/69; PULSE 69; RESP 18; TEMP 36.5; O2SAT 96
[2023-07-20 21:04] VITALS: BP 116/77; PULSE 89; RESP 15; TEMP 36.6; O2SAT 97
[2023-07-21 03:00] VITALS: BP 106/73; PULSE 80; RESP 14; TEMP 36.6; O2SAT 95
[2023-07-21] MEDS: Piperacil/Tazobactam 3.375 GM in 0.9% Normal Saline (50mL MB+) 50 ML IV ×3 (05:54→22:31)
[2023-07-21 08:51] VITALS: BP 108/72; PULSE 75; RESP 18; TEMP 36.6; O2SAT 96
--- NOTE | 2023-07-21 09:02 | PCM.PN.HOSP ---
Subjective Subjective Doing well, no issues overnight Objective Data Objective Data Vital Signs: Vital Signs Temp Pulse Resp BP Pulse Ox O2 Del Method 97.8 F 75 18 108/72 96 Room Air 07/21/23 08:51 07/21/23 08:51 07/21/23 08:51 07/21/23 08:51 07/21/23 08:51 07/21/23 08:51 Oxygen Delivery Method Room Air Weight: 156 lb 15.506 oz Body Mass Index (BMI) 21.9 Intake & Output: Intake and Output for Last 24 Hours 07/20/23 07/21/23 07/22/23 03:59 03:59 03:59 Intake Total 1067.25 / 1067.25 718.25 / 718.25 100 / 100 Balance 1067.25 / 1067.25 718.25 / 718.25 100 / 100 Lab / Micro Data 07/19/23 06:25 07/19/23 06:25 Micro: Microbiology 07/18/23 21:25 Blood Culture (Wb) - Anticubital Right Blood Culture - Preliminary No growth in 48 hours. 07/18/23 21:20 Blood Culture (Wb) - Anticubital Left Bacteria Detection (PCR) - Final Strep not Strep pneumo 07/18/23 21:20 Blood Culture (Wb) - Anticubital Left Blood Culture - Final Streptococcus mitis 07/19/23 14:15 Urine, Clean Catch Legionella Antigen - Final 07/19/23 14:15 Urine, Clean Catch Streptococcus pneumoniae Antigen (M - Final Physical Exam Narrative General: Alert, Oriented x3, Cooperative, No apparent distress HEENT: Atraumatic, PERRLA, EOMI, Normocephalic Oral: Moist Mucosa Neck: Supple, No JVD Lungs: Diminished right base greater than left, Normal air movement, No rhonchi, No wheeze, No rales Cardiovascular: Regular rate, Regular Rhythm, Normal S1, Normal S2, No murmurs Abdomen: Soft, Non Tender, Non-Distended, No Hepato-splenomegaly Extremities: No edema, Capillary Refill Less than 3 Seconds Skin: No rashes, No breakdown Musculoskeletal: No Tenderness to Palpation of Joints or Extremities Neurological: Cranial nerves II-XII grossly intact, Motor Exam 5/5 strength throughout, Sensory exam intact to light touch and pain Psych/Mental Status: Normal Affect, Appropriate Assessment & Plan Assessment/Plan (1) Empyema: (2) Pneumonia: QUALIFIERS: Pneumonia type: due to unspecified organism Laterality: right Lung location: lower lobe of lung Qualified Code(s): J18.9 - Pneumonia, unspecified organism PLAN: Plan 1. Right lower lobe empyema ? At the end of May he had a large parapneumonic effusion that was not drained but was treated with antibiotics and he presents today now with a empyema with a fairly thick rind ? Continue with Zosyn and doxycycline ? Consulted pulmonology who felt that it would be appropriate to transfer as he will likely need VATS in order to treat this ? Discussed the case with [facility] who did accept him in transfer currently awaiting a bed ? He is hemodynamically stable at this time so we will continue with antibiotics monitor ? He denies any risk factors for tuberculosis 2. Schizophrenia ? Stable ? Continue with Noris DVT: Lovenox Charges/Coding Visit Charges Inpatient E&M: 40972 Subs Hosp L2
[2023-07-21] MEDS: Haloperidol 5 MG Tablet PO ×2 (09:21→22:29)
[2023-07-21] MEDS: guaiFENesin 1,200 MG Tablet 1200 MG PO ×2 (09:21→22:29)
[2023-07-21] MEDS: Benztropine 2 MG Tablet 4 MG PO ×2 (09:21→22:29)
[2023-07-21] MEDS: Enoxaparin 40 MG/0.4 ML Syringe SC (09:21)
[2023-07-21 10:05] VITALS: O2SAT 94
[2023-07-21 22:13] VITALS: BP 114/77; PULSE 88; RESP 20; TEMP 37.1; O2SAT 94
--- NOTE | 2023-07-21 22:17 | NURSING ---
ccf update given
[2023-07-21] MEDS: 0.9% Saline Lock 10 ML Syringe IV (22:30)
[2023-07-22 02:17] VITALS: BP 108/76; PULSE 78; RESP 20; TEMP 36.1; O2SAT 94
[2023-07-22] MEDS: Piperacil/Tazobactam 3.375 GM in 0.9% Normal Saline (50mL MB+) 50 ML IV ×2 (04:55→12:58)
[2023-07-22 04:58] VITALS: PULSE 77; RESP 20; O2SAT 93
[2023-07-22 06:55] LABS: Absolute Lymphocyte Count 1.47 X10^3/uL (0.83-4.51); Absolute Neutrophil Count 6.4 X10^3/uL (2.0-7.7); Basophil# 0.09 X10^3/uL; Eosinophils% 4.5 % (0-5); Hemoglobin 9.9 g/dL (13.0-16.5); Lymphocyte # 1.47 X10^3/ul (0.83-4.51); Lymphocyte % 16.6 % (19-41); Mean Corp Hgb Conc 30.9 g/dL (32-36); Mean Corpuscular Hgb 27.3 pg (27.0-32.0); Mean Corpuscular Volume 88.2 fL (80-94); Mean Platelet Vol. 8.8 fl (6.2-12.0); Monocyte# 0.44 X10^3/uL; NRBC Flagged by Analyzer 0 % (0-5); Neutrophil % 72.6 % (47-70); Platelet Count 630 K/mm3 (150-450); RBC Distribution Width CV 14.1 % (11.6-14.6); Red Blood Count 3.63 M/mm3 (4.6-6.2); White Blood Count 8.8 K/mm3 (4.4-11.0)
[2023-07-22 07:17] LABS: Anion Gap 4 (5-15); BUN 16 mg/dL (7-18); BUN/Creat Ratio 12.3 RATIO (10-20); Calcium,Total 9.6 mg/dL (8.5-10.1); Chloride 107 mmol/L (98-107); EST Glomerular Filtration Rate 60 mL/min (>60); Est Glom Filt Rate - Afr Amer 73 mL/min (>60); Estimated Creatinine Clearance 62.38 ml/min; Glucose 100 mg/dL (74-106); Potassium 4.1 mmol/L (3.5-5.1); Sodium Level 138 mmol/L (136-145)
--- NOTE | 2023-07-22 07:59 | PCM.PN.HOSP ---
Subjective Subjective No issues overnight, awaiting bed at [facility] Objective Data Objective Data Vital Signs: Vital Signs Temp Pulse Resp BP Pulse Ox O2 Del Method 97.0 F L 77 20 H 108/76 93 Room Air 07/22/23 02:17 07/22/23 04:58 07/22/23 04:58 07/22/23 02:17 07/22/23 04:58 07/22/23 04:58 Oxygen Delivery Method Room Air Weight: 156 lb 15.506 oz Body Mass Index (BMI) 21.9 Intake & Output: Intake and Output for Last 24 Hours 07/21/23 07/22/23 07/23/23 03:59 03:59 03:59 Intake Total 718.25 / 718.25 350 / 350 Balance 718.25 / 718.25 350 / 350 Lab / Micro Data 07/22/23 06:35 07/22/23 06:35 Labs: Laboratory Results - last 24 hr 07/22/23 06:35: WBC 8.8, RBC 3.63 L, Hgb 9.9 L, Hct 32.0 L, MCV 88.2, MCH 27.3, MCHC 30.9 L, RDW Std Deviation 46.0 H, RDW Coeff of Madie 14.1, Plt Count 630 H, MPV 8.8, Immature Gran % (Auto) 0.300, Neut % (Auto) 72.6 H, Lymph % (Auto) 16.6 L, [place] % (Auto) 5.0, Eos % (Auto) 4.5, Baso % (Auto) 1.0, Absolute Neuts (auto) 6.4, Absolute Lymphs (auto) 1.47, Nucleated RBC % 0, Sodium 138, Potassium 4.1, Chloride 107, Carbon Dioxide 27.0, Anion Gap 4 L, BUN 16, Creatinine 1.30, Estim Creat Clear Calc 62.38, Est GFR (MDRD) Af Amer 73, Est GFR (MDRD) Non-Af 60, BUN/Creatinine Ratio 12.3, Glucose 100, Calcium 9.6 Micro: Microbiology 07/18/23 21:25 Blood Culture (Wb) - Anticubital Right Blood Culture - Preliminary No growth in 48 hours. 07/18/23 21:20 Blood Culture (Wb) - Anticubital Left Bacteria Detection (PCR) - Final Strep not Strep pneumo 07/18/23 21:20 Blood Culture (Wb) - Anticubital Left Blood Culture - Final Streptococcus mitis 07/19/23 14:15 Urine, Clean Catch Legionella Antigen - Final 07/19/23 14:15 Urine, Clean Catch Streptococcus pneumoniae Antigen (M - Final Physical Exam Narrative General: Alert, Oriented x3, Cooperative, No apparent distress HEENT: Atraumatic, PERRLA, EOMI, Normocephalic Oral: Moist Mucosa Neck: Supple, No JVD Lungs: Diminished right base greater than left, Normal air movement, No rhonchi, No wheeze, No rales Cardiovascular: Regular rate, Regular Rhythm, Normal S1, Normal S2, No murmurs Abdomen: Soft, Non Tender, Non-Distended, No Hepato-splenomegaly Extremities: No edema, Capillary Refill Less than 3 Seconds Skin: No rashes, No breakdown Musculoskeletal: No Tenderness to Palpation of Joints or Extremities Neurological: Cranial nerves II-XII grossly intact, Motor Exam 5/5 strength throughout, Sensory exam intact to light touch and pain Psych/Mental Status: Normal Affect, Appropriate Assessment & Plan Assessment/Plan (1) Empyema: (2) Pneumonia: QUALIFIERS: Pneumonia type: due to unspecified organism Laterality: right Lung location: lower lobe of lung Qualified Code(s): J18.9 - Pneumonia, unspecified organism PLAN: Plan 1. Right lower lobe empyema ? At the end of May he had a large parapneumonic effusion that was not drained but was treated with antibiotics and he presents today now with a empyema with a fairly thick rind ? Continue with Zosyn and doxycycline ? Consulted pulmonology who felt that it would be appropriate to transfer as he will likely need VATS in order to treat this ? Discussed the case with [facility] who did accept him in transfer currently awaiting a bed ? He is hemodynamically stable at this time so we will continue with antibiotics monitor ? He denies any risk factors for tuberculosis 2. Schizophrenia ? Stable ? Continue with Hall and Pedroentin DVT: Lovenox Charges/Coding Visit Charges Inpatient E&M: 37405 Subs Hosp L2
[2023-07-22 09:05] VITALS: O2SAT 94
[2023-07-22 09:50] VITALS: BP 98/73; PULSE 80; RESP 18; TEMP 36.6; O2SAT 95
[2023-07-22] MEDS: guaiFENesin 1,200 MG Tablet 1200 MG PO (09:52)
[2023-07-22] MEDS: Benztropine 2 MG Tablet 4 MG PO (09:52)
[2023-07-22] MEDS: Enoxaparin 40 MG/0.4 ML Syringe SC (09:52)
[2023-07-22] MEDS: Haloperidol 5 MG Tablet PO (09:53)
[2023-07-22 15:00] VITALS: BP 107/71; PULSE 84; RESP 18; TEMP 36.8; O2SAT 98
[2023-07-22 18:10] VITALS: BP 106/79; PULSE 91; RESP 18; TEMP 37.1; O2SAT 96
--- NOTE | 2023-07-22 18:45 | DCINST_ITS ---
Discharge Instructions Diet Discharge Diet: No restrictions Activity Discharge Activity: Return to Normal Activity Follow Up Care Test Results: Test results from this visit will be discussed in further detail at your follow- up appointment, if applicable. Discharge Plan Admission Admit Date/Time: 07/18/23 21:18 Attending Provider: Miguel Angel Davis Primary Care Provider: Jonny Matthews Consulting Providers: Hansel Coto; Balta Giordano Discharge Orders/Prescriptions Prescriptions: Continued haloperidol 1 MG tablet 5 mg PO BID benztropine 2 MG tablet 4 mg PO BID Ferrous Sulfate PO BID Patient Comments: pt takes once a day. unsure of dosage Referrals / Follow Up: Jonny Matthews MD [Primary Care Provider] - Disposition Disposition (needs filled in before D/C Order can be placed): Acute Care Hospital
--- NOTE | 2023-07-22 18:46 | DS.PCM_ITS ---
Providers Date of Admission: 07/18/23 Primary Care Physician: Dr. Jonny Matthews MD Consultations 07/19/23 07:07 Consult: [employer] Supervisor / Pulmonary Medicine Routine Consulting Provider: Balta Giordano Reason for Consult: empyema EMERGENT Consult: No MD Notified: Yes Date Notified: 07/19/23 Time Notified: 07:08 Method of Notification: Answering Service Reason For Visit: PNEUMONIA WITH EMPYEMA Diagnosis Discharge Diagnosis (1) Empyema: Status: Acute Code(s): J86.9 - Pyothorax without fistula (2) Pneumonia: Status: Acute Code(s): J18.9 - Pneumonia, unspecified organism Qualifiers: Pneumonia type: due to unspecified organism Laterality: right Lung location: lower lobe of lung Qualified Code(s): J18.9 - Pneumonia, unspecified organism Medications at Discharge Home Medications benztropine 2 mg tablet 4 mg PO BID parkinsons 07/07/20 haloperidol 1 mg tablet 5 mg PO BID anxiety 07/07/20 Ferrous Sulfate PO BID supplement 12/13/20 Hospital Course Operations None Procedures None Summary of Care Provided Minutes Spent on Discharge: 37 Hospital Course: Per HPI: PELON KING, is a 57 M with a significant history of schizophrenia on Haldol and Cogentin who presents to the emergency department with 2-week history of persistent productive cough. Patient is unable to tell the color of his sputum. He denies any shortness of breath. Patient and family who was at the bedside reports that in the past couple of weeks patient has been getting cold pretty easily. Patient went to the urgent care and because of a masslike substance seen on chest x-ray he was sent to the emergency department. Hospital Course: 1. Right lower lobe empyema?57-year old male presented to the hospital with increased persistent productive cough for 2 to 3 weeks prior to admission. CT scan in the ER demonstrated a right lower lobe empyema with a fairly thick rind. Pulmonology was consulted and felt that he would be best served with possible surgical intervention with a VATS and requested transfer to a tertiary care center. He was placed on Zosyn and doxycycline and his vital signs have remained stable since admission. It appears that this has been going on since about the end of May when he presented to the ER with pneumonia and a parapneumonic effusion at that time he was given oral antibiotics and discharged home. We did receive notification that he has a bed at the [facility] and it was discussed with family that we will proceed with transfer today. 2. Schizophrenia, he is stable on his Haldol and Cogentin Weight / BMI Weight Weight: 156 lb 15.506 oz Body Mass Index (BMI) 21.9 ABG / Lab / Microbiology Data 07/22/23 06:35 07/22/23 06:35 Laboratory: Laboratory Results - last 24 hr 07/22/23 06:35: WBC 8.8, RBC 3.63 L, Hgb 9.9 L, Hct 32.0 L, MCV 88.2, MCH 27.3, MCHC 30.9 L, RDW Std Deviation 46.0 H, RDW Coeff of Madie 14.1, Plt Count 630 H, MPV 8.8, Immature Gran % (Auto) 0.300, Neut % (Auto) 72.6 H, Lymph % (Auto) 16.6 L, [place] % (Auto) 5.0, Eos % (Auto) 4.5, Baso % (Auto) 1.0, Absolute Neuts (auto) 6.4, Absolute Lymphs (auto) 1.47, Nucleated RBC % 0, Sodium 138, Potassium 4.1, Chloride 107, Carbon Dioxide 27.0, Anion Gap 4 L, BUN 16, Creatinine 1.30, Estim Creat Clear Calc 62.38, Est GFR (MDRD) Af Amer 73, Est GFR (MDRD) Non-Af 60, BUN/Creatinine Ratio 12.3, Glucose 100, Calcium 9.6 Microbiology: Microbiology 07/18/23 21:25 Blood Culture (Wb) - Anticubital Right Blood Culture - Preliminary No growth in 48 hours. 07/18/23 21:20 Blood Culture (Wb) - Anticubital Left Bacteria Detection (PCR) - Final Strep not Strep pneumo 07/18/23 21:20 Blood Culture (Wb) - Anticubital Left Blood Culture - Final Streptococcus mitis 07/19/23 14:15 Urine, Clean Catch Legionella Antigen - Final 07/19/23 14:15 Urine, Clean Catch Streptococcus pneumoniae Antigen (M - Final D/C Instructions Discharge Diet: No restrictions Meaningful Use Info Meaningful Use Diagnoses (Choose all that apply): None applicable Discharge Plan Admission Admit Date/Time: 09/12/23 21:18 Attending Provider: Miguel Angel Davis Primary Care Provider: Jonny Matthews Consulting Providers: Hansel Coto; Balta Giordano Discharge Orders/Prescriptions Prescriptions: Continued haloperidol 1 MG tablet 5 mg PO BID benztropine 2 MG tablet 4 mg PO BID Ferrous Sulfate PO BID Patient Comments: pt takes once a day. unsure of dosage Referrals / Follow Up: Jonny Matthews MD [Primary Care Provider] - Disposition Disposition (needs filled in before D/C Order can be placed): Acute Care Hospital Charges/Coding Visit Charges Inpatient E&M: 07595 Disch Hosp >30min
== END 2023-07-22 18:51 | disposition short-term general hospital (02) | DRG 177 ==
LOC: ED 20:19 → MS3 22:12
PROVIDERS: Admitting Provider Hospitalist; Emergency Provider Emergency Medicine; PCP Family Medicine; Visit Provider Family Medicine
DX: J86.9 Pyothorax without fistula (principal); J18.9 Pneumonia, unspecified organism; F20.9 Schizophrenia, unspecified; K21.9 Gastro-esophageal reflux disease without esophagitis; F17.210 Nicotine dependence, cigarettes, uncomplicated; R59.0 Localized enlarged lymph nodes; Z79.899 Other long term (current) drug therapy
CPT/HCPCS: 36415; 71260; 80048; 83605; 85025; 87040; 87149; 87186; 87449; 87641; 97802; 99284; 99406; J7030; J7040; J7050; Q9967; A4216

== ENCOUNTER → 2023-09-11 | Outpatient (CLI) | payer BC, SELFPAY ==
--- NOTE | 2023-09-11 12:21 | VDLE_ITS ---
Reason For Study: LLE PAIN RIGHT LEFT CFV is compressible, spontaneous, phasic, GSV is normal. competent and demonstrates normal CFV is compressible, spontaneous, phasic, augmentation. competent, and demonstrates normal Procedure augmentation. This is a venous duplex using B-mode, color DPFV is normal. flow and spectral Doppler. Exam performed in department. FV, POP V, T/P TRUNK, PTV, PERV are DILATED & The exam was diagnostic. NONCOMPRESSIBLE C/W ACUTE DVT. A preliminary report was called and/or faxed to Dr. Matthews/office @ 1:15 pm, RX sent to [facility]. VL/Venous Duplex US, Unilateral Interpretation Summary Acute deep vein thrombosis is noted in the left femoral vein, popliteal vein, t ibioperoneal trunk vein, posterior tibial vein, peroneal vein Ordering Physician: Jonny Matthews Referring Physician: Jonny Matthews Performed By: Ifeoma Awad, STEFAN, RVT
== END | disposition home or self-care (01) ==
LOC: CVS 12:19
PROVIDERS: PCP Family Medicine; Referring Provider Family Medicine; Visit Provider Family Medicine
DX: M79.605 Pain in left leg (principal)
CPT/HCPCS: 93971

== ENCOUNTER 2024-03-18 18:28 | Emergency (ER) | payer OTHER, SELFPAY ==
[2024-03-18 18:28] VITALS: BP 142/96; PULSE 82; RESP 16; TEMP 36.9; O2SAT 99; BMI 26.5
--- NOTE | 2024-03-18 18:40 | RAD_ITS ---
STUDY: X-RAY - LEFT ELBOW REASON FOR EXAM: Male, 58 years old. INJURY TECHNIQUE: 3 view(s) of the elbow. COMPARISON: None. FINDINGS: Normal visualized humerus and radius. There is an acute comminuted fracture of the olecranon process of the proximal ulna with displacement of 2.1 cm. Normal radiocapitellar and ulnotrochlear articulations. There is posterior soft tissue swelling. RAD/Elbow min 3 Views IMPRESSION: Fracture of the proximal ulna. Electronically Signed: Shane Barnes MD at 19:13 EDT ,
--- NOTE | 2024-03-18 18:44 | EDS_ITS ---
HPI History of Present Illness Chief Complaint: Upper Extremity Injury Informant: patient Occured/Mechanism Mechanism/Context: Yes fall Narrative Narrative: Patient presents after tripping and falling at work today landing on his left elbow. He has had progression of swelling over the past couple hours. He did take ibuprofen when he got home from work and states that seemed to help his pain. He denies any other injury from the fall. He is right-hand dominant. [facility] Medical History (Updated 03/18/24 @ 19:[address] Destinee Douglas MD) DVT (deep venous thrombosis) GERD (gastroesophageal reflux disease) Hypercalcemia Light tobacco smoker Paranoid schizophrenia Restless leg Home Medications benztropine 2 mg tablet 4 mg PO BID parkinsons 07/07/20 [History Last Taken 07/18/23 17:00 4 mg] haloperidol 5 mg tablet 5 mg PO BID 03/18/24 [History Last Taken Unknown] Allergy/AdvReac Type Severity Reaction Status Date / Time No Known Allergies Allergy Verified 03/18/24 18:35 Family History Aunt Cancer maternal Uncle Cancer maternal Mother Pacemaker Surgical History History of appendectomy Social History Smoking Status: Former smoker alcohol intake: current details: Rarely substance use type: does not use ROS ROS ED Constitutional Constitutional ED: Denies chills or fever(s) Eyes Eyes: Denies discharge from eye(s) ENT ENT ED: Denies discharge from eye(s), rhinorrhea or sore throat Cardiovascular Cardiovascular: Denies chest pain Respiratory/Chest Respiratory/Chest: Denies cough or dyspnea Gastrointestinal Gastrointestinal: Denies abdominal pain, nausea or vomiting Musculoskeletal Musculoskeletal: Reports extremity pain; Denies back pain Integumentary Denies Abrasions or rash Neurologic Neurologic: Denies headache(s) or weakness Allergic/Immunologic Allergic/Immunologic ED: Denies lip swelling or urticaria EXAM Physical Exam Const Vital Signs: 03/18/24 18:28 Temperature 98.4 F Temperature Source Temporal Pulse Rate 82 Respiratory Rate 16 Blood Pressure 142/96 H Blood Pressure Mean 111 Pulse Ox 99 Oxygen Delivery Method Room Air Positive well nourished and well developed General Appearance ED: well developed HEENT Reports moist mucous membranes Eyes EOMs intact bilaterally Chest Wall inspection of chest normal and palpation of chest normal Resp normal respiratory effort and clear to auscultation bilaterally Cardio regular rate and regular rhythm Extremity Extremity Narrative: Patient has edema over the extensor surface of his left elbow. No abrasions or lacerations. No erythema. He does have slow purposeful range of motion at the elbow. No pain with pronation and supination. No tenderness at the wrist or shoulder. Neuro oriented x3 and moves all extremities MDM MDM MDM Narrative Medical decision making narrative: Left elbow x-rays were obtained per nursing protocol. Left elbow x-ray per my interpretation reveals an olecranon fracture with approximate 1.6 cm of distraction. X-rays reviewed with the patient. I spoke with Dr. Carwley, on-call for orthopedics. He asked that we splint the patient and have him follow-up in the office and they will get him set for surgery to repair this. Patient was placed in a posterior splint with Ortho-Glass. Following splint application he can wiggle fingers and has good cap refill. He wishes to just take Tylenol or ibuprofen as needed for pain and does not want any narcotics. He is to call Dr. Crawley's office tomorrow morning for follow- up. Discharge Plan Triage Chief Complaint: Upper Extremity Injury ED Provider: Destinee Douglas Dx/Rx/DC Orders Clinical Impression: Closed olecranon fracture, Fall Instructions: ED Elbow Fracture Prescriptions: No Action benztropine 2 MG tablet 4 mg PO BID haloperidol 5 mg tablet 5 mg PO BID Stand Alone Forms: Work Status Form Primary Care Provider: Jonny Matthews Referrals: Jonny Matthews MD [Primary Care Provider] - Bruno Crawley MD [Med Staff - Active Staff] - 3-5 Days Disposition Disposition: Home, Self Care
[2024-03-18 20:06] VITALS: BP 135/86; PULSE 76; RESP 12; TEMP 37; O2SAT 100
== END 2024-03-18 20:07 | disposition home or self-care (01) ==
PROVIDERS: Emergency Provider Emergency Medicine; PCP Family Medicine; Visit Provider Emergency Medicine
DX: S52.022A Displaced fracture of olecranon process without intraarticular extension of left ulna, initial encounter for closed fracture (principal); Z87.891 Personal history of nicotine dependence; K21.9 Gastro-esophageal reflux disease without esophagitis; Z79.899 Other long term (current) drug therapy; W01.0XXA Fall on same level from slipping, tripping and stumbling without subsequent striking against object, initial encounter
CPT/HCPCS: 29125; 73080; 99282

== ENCOUNTER → 2024-03-20 | Outpatient (CLI) | payer OTHER, BC, SELFPAY ==
[2024-03-20 08:49] LABS: Absolute Lymphocyte Count 1.22 X10^3/uL (0.83-4.51); Absolute Neutrophil Count 3.7 X10^3/uL (2.0-7.7); Basophil# 0.07 X10^3/uL; Basophil% 1.2 % (0-1); Eosinophil# 0.43 X10^3/uL; Eosinophils% 7.4 % (0-5); Hematocrit 42.4 % (40-54); Hemoglobin 13.5 g/dL (13.0-16.5); Lymphocyte # 1.22 X10^3/ul (0.83-4.51); Lymphocyte % 20.9 % (19-41); Mean Corp Hgb Conc 31.8 g/dL (32-36); Mean Corpuscular Hgb 29.3 pg (27.0-32.0); Mean Corpuscular Volume 92.2 fL (80-94); Mean Platelet Vol. 9.5 fl (6.2-12.0); Monocyte# 0.39 X10^3/uL; Monocyte% 6.7 % (0-10); NRBC Flagged by Analyzer 0 % (0-5); Neutrophil # 3.72 X10^3/uL (2.7-7.7); Neutrophil % 63.6 % (47-70); Platelet Count 227 K/mm3 (150-450); RBC Distribution Width CV 14.2 % (11.6-14.6); RBC Distribution Width SD 48.3 fl (35.1-43.9); White Blood Count 5.8 K/mm3 (4.4-11.0)
[2024-03-20 11:29] LABS: Anion Gap 2 (5-15); BUN 18 mg/dL (7-18); BUN/Creat Ratio 16.7 RATIO (10-20); Calcium,Total 8.9 mg/dL (8.5-10.1); Chloride 111 mmol/L (98-107); Creatinine, Serum 1.08 mg/dL (0.70-1.30); EST Glomerular Filtration Rate 74 mL/min (>60); Est Glom Filt Rate - Afr Amer 90 mL/min (>60); Glucose 91 mg/dL (74-106); Potassium 4.3 mmol/L (3.5-5.1); Sodium Level 135 mmol/L (136-145)
== END | disposition home or self-care (01) ==
LOC: PSN 07:37
PROVIDERS: PCP Family Medicine; Referring Provider Physician Assistant Surgical; Visit Provider Physician Assistant Surgical
DX: Z01.818 Encounter for other preprocedural examination (principal); Z01.810 Encounter for preprocedural cardiovascular examination
CPT/HCPCS: 36415; 80048; 85025; 93005